=== PATIENT | female | born 2000 | race Caucasian/White ===

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

== ENCOUNTER 2021-02-28 07:29 | Outpatient (REF) | payer OTHER, SELFPAY ==
[2021-02-28 07:55] LABS: COVID-19 Test Negative (Negative)
== END 2021-02-28 07:30 | disposition home or self-care (01) ==
LOC: HO.LAB 07:29
PROVIDERS: Visit Provider Internal Medicine
DX: Z20.822 Contact with and (suspected) exposure to COVID-19 (principal)
CPT/HCPCS: 36415; 87635; C9803

== ENCOUNTER 2021-06-21 09:32 | Outpatient (REF) | payer OTHER, SELFPAY ==
[2021-06-21 12:06] LABS: Hematocrit 42.6 % (37.0-47.0); Hemoglobin 12.7 g/dl (12.0-16.0); Mean Corpuscular HGB Conc 29.8 g/dl (31.0-35.0); Mean Corpuscular Volume 83.9 fL (80.0-98.0); Mean Platelet Volume 9.2 fL (9.4-12.3); Platelet Count 298 X10*3/uL (160-400); Red Blood Count 5.08 X10*6/uL (4.20-5.50); Red Cell Distribution Width 14.8 % (11.0-16.0)
[2021-06-21 12:41] LABS: Thyroid Stimulating Hormone 2.02 uIU/mL (0.32-4.0)
[2021-06-21 16:27] LABS: CT PCR NOT DETECTED (Not Detect.); NG PCR NOT DETECTED (Not Detect.)
[2021-06-22 09:20] LABS: BV Int Neg Control Negative (Negative); BV Int Pos Control Positive (Positive)
== END 2021-06-21 09:33 | disposition home or self-care (01) ==
LOC: HO.LAB 09:32
PROVIDERS: PCP Pediatrics; Visit Provider Advanced Practice Midwife
DX: Z11.3 Encounter for screening for infections with a predominantly sexual mode of transmission (principal); N92.1 Excessive and frequent menstruation with irregular cycle; N94.6 Dysmenorrhea, unspecified
CPT/HCPCS: 36415; 81025; 84443; 85027; 87480; 87491; 87510; 87591; 87660

== ENCOUNTER 2021-06-27 15:49 | Outpatient (REF) | payer OTHER, SELFPAY ==
--- NOTE | ~2021-06-27 | US_ITS ---
EXAMINATION: US PELVIS TRANSVAGINAL CLINICAL INFORMATION: Irregular menstruation. COMPARISON: None. TECHNIQUE: Transcutaneous and transvaginal pelvic ultrasound. Transvaginal scanning was performed after voiding to better evaluate the endometrium and adnexa. FINDINGS: The uterus measures 6.3 x 3.1 x 3.9 cm. The uterus is retroverted and retroflexed. No suspicious abnormalities region of the cervix. Nabothian cysts are present. The uterine contour is smooth. The endometrium measures 0.4 cm. No focal abnormalities within the myometrium. The right ovary measures approximately 3.5 x 2.4 x 2.0 cm. The calculated right ovarian volume is approximately 8.8 mL. There are numerous subcentimeter follicular cysts present; however, I cannot tell if there are greater than 20 are not and there is not definitely a peripheral predominance. The ovary does not measure a volume of greater than 10 mm. There is normal vascular flow present. No suspicious masses are appreciated. The left ovary measures 2.6 x 2.5 x 2.2 cm. The calculated left ovarian volume is approximately 7.5 mL. There are numerous cysts present; however, I cannot count greater than 20 and the volume of the left ovary is less than 10 mL. There is normal vascular flow present without evidence of abnormal mass. There is a small amount of free pelvic fluid. US/US pelvic and transvaginal IMPRESSION: Numerous bilateral ovarian follicular cysts; however, as described above, they do not meet the definite ultrasound criteria for PCOS.
== END 2021-06-27 15:50 | disposition home or self-care (01) ==
LOC: HO.US 15:49
PROVIDERS: PCP Pediatrics; Visit Provider Advanced Practice Midwife
DX: N92.6 Irregular menstruation, unspecified (principal)
CPT/HCPCS: 76830; 76856

== ENCOUNTER → 2021-07-20 16:13 | Outpatient (BNVA) | payer OTHER, SELFPAY | PROVIDERS: Visit Provider Advanced Practice Midwife ==

== ENCOUNTER → 2021-08-02 13:48 | Outpatient (BNVA) | payer OTHER, SELFPAY | PROVIDERS: PCP Pediatrics; Visit Provider Advanced Practice Midwife | DX: Z30.430 Encounter for insertion of intrauterine contraceptive device (principal) | CPT/HCPCS: 58300; J7296 ==

== ENCOUNTER 2021-08-04 18:48 | Emergency (ER) | payer OTHER, SELFPAY ==
[2021-08-04 18:59] VITALS: TEMP 36.4; BMI 32.8
[2021-08-04 19:06] VITALS: BP 77/49; PULSE 129; RESP 24; O2SAT 98
[2021-08-04 19:12] LABS: Glucose, Whole Blood 146 mg/dL (60-115)
[2021-08-04 19:17] VITALS: BP 97/58; PULSE 115; RESP 12; O2SAT 95
--- NOTE | 2021-08-04 19:20 | ED_ITS ---
HPI - General Adult General Chief complaint: Weakness Stated complaint: IUD implanted 08/02 severe weakness/nausea Time Seen by Provider: 08/04/21 19:20 Source: patient Mode of arrival: ambulatory Limitations: no limitations History of Present Illness HPI narrative: None patient with history of diabetes had IUD placed on 08/02 been feeling weak and lethargic today vomited several times no diarrhea no abdominal pain no fever or chills no cough Related Data Home Medications Medication Instructions Recorded Confirmed insulin lispro 100 unit/mL 0 - 80 unit SUBCUT DAILY 06/21/21 subcutaneous pen (Humalog KwikPen (U-100) Insulin) Previous Rx's Medication Instructions Recorded ciprofloxacin HCl 500 mg tablet 500 mg PO BID #14 tab 08/05/21 (Cipro) ondansetron 4 mg disintegrating 4 mg PO Q6-8H PRN #7 tab 08/05/21 tablet Allergies Allergy/AdvReac Type Severity Reaction Status Date / Time No Known Allergies Allergy Verified 08/04/21 18:59 [facility]LY [facility] Past Medical History Medical History Diabetes mellitus Diabetic coma Kidney failure Migraine with aura Surgical History H/O right heart catheterization Social History Social History Alcohol intake: never Patient Tobacco Use Status: Never used Tobacco Advance Directives: No Patient : No Sexual orientation: Straight/Heterosexual Gender identity: Female Physical Exam ED Vital Signs: Vital Signs - 24 hr 08/04/21 18:59 08/04/21 19:06 08/04/21 19:17 Temperature 97.5 F Pulse Rate 129 H 115 H Respiratory Rate 24 H 12 Blood Pressure 77/49 L 97/58 L Pulse Oximetry 98 95 08/04/21 20:26 08/04/21 22:41 08/05/21 00:00 Temperature 98.4 F 98.5 F Pulse Rate 108 H 125 H 100 Respiratory Rate 18 20 17 Blood Pressure 103/64 108/47 L 101/59 L Pulse Oximetry 99 98 96 BMI result Body Mass Index 32.8 Appearance: Alert. Oriented X3. Lethargic Eyes: PERRLA, No Nystagmus ENT: Pharynx normal. Oral Mucosa moist Neck: Normal inspection. Neck supple. CVS: Normal heart rate and rhythm. Pulses normal. Respiratory: No respiratory distress. Equal air entry bilateral, no wheezing/rales/rhonchi Abdomen: Soft and nontender. Bowel sounds are present, no mass palpable, no CVA tenderness Skin: Skin warm and dry. Normal skin color. Normal skin turgor. Extremities: No lower extremity edema. No calf tenderness Neuro: Oriented X 3. No motor deficit. No sensory deficit.No cerebellar signs , cranial nerves II-XII intact Medical Decision Making MDM Narrative Medical decision making narrative: Patient with acute gastroenteritis with a couple of episodes of vomiting with hypotension with UTI received 3 L of IV fluids IV Rocephin feeling much better now will discharge patient home advised to continue Cipro and follow with PCP Lab Data Lab results reviewed: Yes I reviewed the patient's lab results. Result diagrams: 08/04/21 19:32 08/04/21 19:32 Labs: Lab Results 08/04/21 08/04/21 08/04/21 Range/Units 19:04 19:32 19:32 WBC 12.0 H (4.8-10.8) X10*3/uL RBC 5.56 H (4.20-5.50) X10*6/uL Hgb 14.2 (12.0-16.0) g/dl Hct 46.5 (37.0-47.0) % MCV 83.6 (80.0-98.0) fL MCH 25.5 L (27.0-33.0) pg MCHC 30.5 L (31.0-35.0) g/dl RDW 13.1 (11.0-16.0) % Plt Count 385 D (160-400) X10*3/uL MPV 9.0 L (9.4-12.3) fL Immature Gran % (Auto) 0.7 H (0.0-0.4) % Neut % (Auto) 68.0 (45-73) % Lymph % (Auto) 25.4 (20-40) % [place] % (Auto) 5.4 (2-11) % Eos % (Auto) 0.1 (0-4) % Baso % (Auto) 0.4 (0-2) % Lymph # (Auto) 3.1 (1.2-4.9) X10*3/uL [place] # (Auto) 0.7 (0.1-1.2) X10*3/uL Eos # (Auto) 0.0 (0.0-0.4) X10*3/uL Baso # (Auto) 0.1 (0.0-0.2) X10*3/uL Abs Immat Gran (auto) 0.08 H (0.00-0.03) X10*3/uL Absolute Neuts (auto) 8.2 (2.0-8.3) x10*3/uL Absolute Nucleated RBC 0.000 (0.0-0.012) X10*3/uL Nucleated RBC % (auto) 0.0 (0.0-0.2) /100WBC Sodium 137 (135-145) mmol/L Potassium 4.5 (3.3-5.1) mmol/L Chloride 100 (96-108) mmol/L Carbon Dioxide 18 L (22-29) mmol/L Anion Gap 24 H (12-20) BUN 15 (9-16) mg/dL Creatinine 1.29 (0.5-1.4) mg/dL Estim Creat Clear Calc 71.3 Estimated GFR 53 POC Glucose 146 H (60-115) mg/dL Random Glucose 130 H (60-115) mg/dL Lactic Acid (0.5-2.0) mmol/L Lactic Acid F/U @ 2Hr (0.5-2.0) mmol/L Calcium 10.1 (8.4-10.2) mg/dL Total Bilirubin 0.3 (0.0-1.0) mg/dL AST 18 (5-31) U/L ALT 22 (0-31) U/L Alkaline Phosphatase 177 H (39-117) U/L Total Protein 7.7 (6.5-8.0) g/dL Albumin 4.4 (3.5-5.0) g/dL Urine Color Urine Appearance Urine pH (5.0-8.0) Ur Specific [place] (1.005-1.025) Urine Protein (NEG-TRACE) MG/DL Urine Glucose (UA) (NEG) MG/DL Urine Ketones (NEG) MG/DL Urine Blood (NEG) Urine Nitrite (NEG) Ur Leukocyte Esterase (NEG) Urine RBC (0) /HPF Urine WBC (0-4) /HPF Urine WBC Clumps Ur Squamous Epith Cells /LPF Urine Bacteria /LPF Granular Casts /LPF Urine Yeast /HPF COVID-19 ([facility]) (Negative) COVID-19 Clin Com Influenza Type A ([facility]) (Negative) Influenza Type B ([facility]) (Negative) Influenza A & B Note 08/04/21 08/04/21 08/04/21 Range/Units 19:35 19:41 19:41 WBC (4.8-10.8) X10*3/uL RBC (4.20-5.50) X10*6/uL Hgb (12.0-16.0) g/dl Hct (37.0-47.0) % MCV (80.0-98.0) fL MCH (27.0-33.0) pg MCHC (31.0-35.0) g/dl RDW (11.0-16.0) % Plt Count (160-400) X10*3/uL MPV (9.4-12.3) fL Immature Gran % (Auto) (0.0-0.4) % Neut % (Auto) (45-73) % Lymph % (Auto) (20-40) % [place] % (Auto) (2-11) % Eos % (Auto) (0-4) % Baso % (Auto) (0-2) % Lymph # (Auto) (1.2-4.9) X10*3/uL [place] # (Auto) (0.1-1.2) X10*3/uL Eos # (Auto) (0.0-0.4) X10*3/uL Baso # (Auto) (0.0-0.2) X10*3/uL Abs Immat Gran (auto) (0.00-0.03) X10*3/uL Absolute Neuts (auto) (2.0-8.3) x10*3/uL Absolute Nucleated RBC (0.0-0.012) X10*3/uL Nucleated RBC % (auto) (0.0-0.2) /100WBC Sodium (135-145) mmol/L Potassium (3.3-5.1) mmol/L Chloride (96-108) mmol/L Carbon Dioxide (22-29) mmol/L Anion Gap (12-20) BUN (9-16) mg/dL Creatinine (0.5-1.4) mg/dL Estim Creat Clear Calc Estimated GFR POC Glucose (60-115) mg/dL Random Glucose (60-115) mg/dL Lactic Acid 2.2 H* (0.5-2.0) mmol/L Lactic Acid F/U @ 2Hr (0.5-2.0) mmol/L Calcium (8.4-10.2) mg/dL Total Bilirubin (0.0-1.0) mg/dL AST (5-31) U/L ALT (0-31) U/L Alkaline Phosphatase (39-117) U/L Total Protein (6.5-8.0) g/dL Albumin (3.5-5.0) g/dL Urine Color Urine Appearance Urine pH (5.0-8.0) Ur Specific [place] (1.005-1.025) Urine Protein (NEG-TRACE) MG/DL Urine Glucose (UA) (NEG) MG/DL Urine Ketones (NEG) MG/DL Urine Blood (NEG) Urine Nitrite (NEG) Ur Leukocyte Esterase (NEG) Urine RBC (0) /HPF Urine WBC (0-4) /HPF Urine WBC Clumps Ur Squamous Epith Cells /LPF Urine Bacteria /LPF Granular Casts /LPF Urine Yeast /HPF COVID-19 ([facility]) Negative (Negative) COVID-19 Clin Com See Note Influenza Type A ([facility]) Negative (Negative) Influenza Type B ([facility]) Negative (Negative) Influenza A & B Note See Note 08/04/21 08/04/21 08/04/21 Range/Units 22:20 22:33 22:44 WBC (4.8-10.8) X10*3/uL RBC (4.20-5.50) X10*6/uL Hgb (12.0-16.0) g/dl Hct (37.0-47.0) % MCV (80.0-98.0) fL MCH (27.0-33.0) pg MCHC (31.0-35.0) g/dl RDW (11.0-16.0) % Plt Count (160-400) X10*3/uL MPV (9.4-12.3) fL Immature Gran % (Auto) (0.0-0.4) % Neut % (Auto) (45-73) % Lymph % (Auto) (20-40) % [place] % (Auto) (2-11) % Eos % (Auto) (0-4) % Baso % (Auto) (0-2) % Lymph # (Auto) (1.2-4.9) X10*3/uL [place] # (Auto) (0.1-1.2) X10*3/uL Eos # (Auto) (0.0-0.4) X10*3/uL Baso # (Auto) (0.0-0.2) X10*3/uL Abs Immat Gran (auto) (0.00-0.03) X10*3/uL Absolute Neuts (auto) (2.0-8.3) x10*3/uL Absolute Nucleated RBC (0.0-0.012) X10*3/uL Nucleated RBC % (auto) (0.0-0.2) /100WBC Sodium (135-145) mmol/L Potassium (3.3-5.1) mmol/L Chloride (96-108) mmol/L Carbon Dioxide (22-29) mmol/L Anion Gap (12-20) BUN (9-16) mg/dL Creatinine (0.5-1.4) mg/dL Estim Creat Clear Calc Estimated GFR POC Glucose 87 (60-115) mg/dL Random Glucose (60-115) mg/dL Lactic Acid (0.5-2.0) mmol/L Lactic Acid F/U @ 2Hr 2.2 H* (0.5-2.0) mmol/L Calcium (8.4-10.2) mg/dL Total Bilirubin (0.0-1.0) mg/dL AST (5-31) U/L ALT (0-31) U/L Alkaline Phosphatase (39-117) U/L Total Protein (6.5-8.0) g/dL Albumin (3.5-5.0) g/dL Urine Color YELLOW Urine Appearance HAZY Urine pH 5.5 (5.0-8.0) Ur Specific [place] >= 1.030 H (1.005-1.025) Urine Protein TRACE (NEG-TRACE) MG/DL Urine Glucose (UA) 250 H (NEG) MG/DL Urine Ketones >=80 (NEG) MG/DL Urine Blood 2+ H (NEG) Urine Nitrite NEG (NEG) Ur Leukocyte Esterase 1+ H (NEG) Urine RBC 5-9 H (0) /HPF Urine WBC 15-29 H (0-4) /HPF Urine WBC Clumps NOTED Ur Squamous Epith Cells 4+ /LPF Urine Bacteria 2+ /LPF Granular Casts 5-9 /LPF Urine Yeast TRACE /HPF COVID-19 ([facility]) (Negative) COVID-19 Clin Com Influenza Type A ([facility]) (Negative) Influenza Type B ([facility]) (Negative) Influenza A & B Note Discharge Plan Discharge Clinical Impression: UTI (urinary tract infection), Acute gastroenteritis Patient Disposition: Home, Self-Care Instructions: Urinary Tract Infection in Women (ED), Acute Nausea and Vomiting (ED) Additional Instructions: Drink plenty of fluids Take antibiotic as prescribed Insulin as indicated Report to the ER if syncope episode/vomiting/high fever Prescriptions: New ciprofloxacin HCl [Cipro] 500 mg tablet 500 mg PO BID Qty: 14 0RF ondansetron 4 mg tablet,disintegrating 4 mg PO Q6-8H PRN (Reason: nausea and vomiting) Qty: 7 0RF No Action insulin lispro [Humalog KwikPen Insulin] 100 unit/mL insulin pen 0 - 80 unit subcut DAILY 0RF Kyleena 17.5 mcg/24 hrs (5 yrs) 19.5 mg intrauterine device 1 device intrauterine ONCE Qty: 1 0RF
[2021-08-04 19:36] LABS: MANUAL DIFF FLAG NO
[2021-08-04 19:40] LABS: Basophils Absolute Auto 0.1 X10*3/uL (0.0-0.2); Basophils Percent Auto 0.4 % (0-2); Eosinophils Percent Auto 0.1 % (0-4); Hematocrit 46.5 % (37.0-47.0); Hemoglobin 14.2 g/dl (12.0-16.0); Imm Gran Abs Auto 0.08 X10*3/uL (0.00-0.03); Imm Gran Pct Auto 0.7 % (0.0-0.4); Lymphocytes Absolute Auto 3.1 X10*3/uL (1.2-4.9); Lymphocytes Percent Auto 25.4 % (20-40); Mean Corpuscular HGB Conc 30.5 g/dl (31.0-35.0); Mean Corpuscular Hemoglobin 25.5 pg (27.0-33.0); Mean Corpuscular Volume 83.6 fL (80.0-98.0); Monocytes Absolute Auto 0.7 X10*3/uL (0.1-1.2); Monocytes Percent Auto 5.4 % (2-11); Neutrophils Absolute Auto 8.2 x10*3/uL (2.0-8.3); Platelet Count 385 X10*3/uL (160-400); Red Blood Count 5.56 X10*6/uL (4.20-5.50); Red Cell Distribution Width 13.1 % (11.0-16.0)
[2021-08-04] MEDS: 0.9 % Sodium Chloride 1,000 ML 999 ML IV ×3 (19:42→23:40)
[2021-08-04] MEDS: ondansetron HCL 4 MG/2 ML VIAL IVPUSH (19:42)
[2021-08-04 19:58] LABS: Alanine Aminotransferase 22 U/L (0-31); Albumin Level 4.4 g/dL (3.5-5.0); Alkaline Phosphatase 177 U/L (39-117); Anion Gap 24 (12-20); Aspartate Amino Transferase 18 U/L (5-31); Bilirubin Total 0.3 mg/dL (0.0-1.0); Blood Urea Nitrogen 15 mg/dL (9-16); Calcium 10.1 mg/dL (8.4-10.2); Carbon Dioxide 18 mmol/L (22-29); Chloride 100 mmol/L (96-108); Creatinine Clr Calc Pharmacy 71.3; Estimated Glomerular Filt Rate 53; Glucose Random 130 mg/dL (60-115); Potassium 4.5 mmol/L (3.3-5.1); Sodium 137 mmol/L (135-145); Total Protein 7.7 g/dL (6.5-8.0)
[2021-08-04 19:59] LABS: Lactic Acid 2.2 mmol/L (0.5-2.0)
[2021-08-04 20:06] LABS: Influenza A Negative (Negative); Influenza B2 Negative (Negative)
[2021-08-04 20:07] LABS: COVID-19 Test Negative (Negative); IDNOW Serial# 55D5AD1C
[2021-08-04 20:26] VITALS: BP 103/64; PULSE 108; RESP 18; O2SAT 99
[2021-08-04 21:37] LABS: Reflex Lactate? Lactic Acid Added
[2021-08-04 22:23] LABS: Glucose, Whole Blood 87 mg/dL (60-115)
[2021-08-04 22:41] VITALS: BP 108/47; PULSE 125; RESP 20; TEMP 36.9; O2SAT 98
[2021-08-04 22:48] LABS: Appearance Urine HAZY; Color Urine YELLOW; Glucose Urine UA 250 MG/DL (NEG); Leukocyte Esterase Urine 1+ (NEG); Nitrite Urine NEG (NEG); PH 5.5 (5.0-8.0); Specific Gravity - Urine >= 1.030 (1.005-1.025); UACC Culture Trigger YES; Urine Blood 2+ (NEG); Urine Ketones >=80 MG/DL (NEG); Urine Protein TRACE MG/DL (NEG-TRACE)
[2021-08-04 23:10] LABS: Bacteria Urine 2+ /LPF; Squamous Epithelial Cell Urine 4+ /LPF; WBC Clumps Urine NOTED
[2021-08-04 23:18] LABS: ~Lactic Acid-LAB USE ONLY 2.2 mmol/L (0.5-2.0)
[2021-08-04] MEDS: cefTRIAXone sodium 1 GM in 0.9 % Sodium Chloride 50 ML IV (23:40)
[2021-08-05] VITALS: BP 101/59; PULSE 100; RESP 17; TEMP 36.9; O2SAT 96
[2021-08-05 00:39] LABS: Reflex Lactate? 2 Y
== END 2021-08-05 01:08 | disposition home or self-care (01) ==
PROVIDERS: Emergency Provider Internal Medicine; PCP Pediatrics
DX: N39.0 Urinary tract infection, site not specified (principal); K52.9 Noninfective gastroenteritis and colitis, unspecified; R53.1 Weakness; Z20.822 Contact with and (suspected) exposure to COVID-19; E11.9 Type 2 diabetes mellitus without complications; Z79.4 Long term (current) use of insulin
CPT/HCPCS: 36415; 80053; 81001; 82947; 83605; 85025; 87040; 87086; 87088; 87147; 87186; 87502; 87635; 96361; 96374; 96375; 99284; 99285; J0696; J2405

== ENCOUNTER 2021-10-18 13:51 | Outpatient (REF) | payer OTHER, SELFPAY ==
[2021-10-18 17:52] LABS: CT PCR NOT DETECTED (Not Detect.); NG PCR NOT DETECTED (Not Detect.)
[2021-10-19 12:30] LABS: BV Int Neg Control Negative (Negative); BV Int Pos Control Positive (Positive)
== END 2021-10-18 13:52 | disposition home or self-care (01) ==
LOC: HO.LAB 13:51
PROVIDERS: PCP Pediatrics; Visit Provider Advanced Practice Midwife
DX: R10.2 Pelvic and perineal pain (principal); R39.15 Urgency of urination; B95.1 Streptococcus, group B, as the cause of diseases classified elsewhere; Z11.3 Encounter for screening for infections with a predominantly sexual mode of transmission; E11.641 Type 2 diabetes mellitus with hypoglycemia with coma; E11.22 Type 2 diabetes mellitus with diabetic chronic kidney disease; N18.9 Chronic kidney disease, unspecified; Z16.11 Resistance to penicillins; Z16.24 Resistance to multiple antibiotics
CPT/HCPCS: 81003; 87086; 87088; 87147; 87186; 87480; 87491; 87510; 87591; 87660

== ENCOUNTER 2021-10-20 14:49 | Outpatient (REF) | payer OTHER, SELFPAY ==
--- NOTE | ~2021-10-20 | US_ITS ---
EXAMINATION: US PELVIS CLINICAL INFORMATION: Pain COMPARISON: Previous pelvic ultrasound June 2021 TECHNIQUE: Ultrasound of the pelvis is performed using both transabdominal and transvaginal transducers along with Doppler. Transvaginal imaging is performed due to inadequate visualization transabdominally. FINDINGS: The uterus is retroverted and measures 6.2 x 3.7 x 4.8 cm in dimension. There is a new IUD in the uterus in satisfactory position. No focal uterine lesion is seen. The endometrium does not appear thickened. The ovaries are normal-appearing. The right ovary measures 3.3 x 1.9 x 2.4 cm. The left ovary measures 2.9 x 2.2 x 2.6 cm. There is no fluid in the pelvis. US/US pelvic and transvaginal IMPRESSION: IUD in the uterus in satisfactory position.
== END 2021-10-20 14:50 | disposition home or self-care (01) ==
LOC: HO.US 14:49
PROVIDERS: PCP Pediatrics; Visit Provider Advanced Practice Midwife
DX: Z30.431 Encounter for routine checking of intrauterine contraceptive device (principal); R10.2 Pelvic and perineal pain
CPT/HCPCS: 76830; 76856

== ENCOUNTER 2022-04-06 13:09 | Outpatient (REF) | payer OTHER, SELFPAY ==
[2022-04-06 14:25] LABS: Creatinine Urine 21.16 mg/dL; Microalbum/Creatinine Ratio Ur 47.2 ug/mg cr
[2022-04-06 14:28] LABS: Alanine Aminotransferase 20 U/L (0-31); Albumin Level 3.5 g/dL (3.5-5.0); Alkaline Phosphatase 186 U/L (39-117); Aspartate Amino Transferase 24 U/L (5-31); Bilirubin Direct 0.2 mg/dL (0.0-0.5); Bilirubin Total 0.5 mg/dL (0.0-1.0); Estimated Glomerular Filt Rate > 60; Total Protein 6.1 g/dL (6.5-8.0)
[2022-04-06 14:48] LABS: Thyroid Stimulating Hormone 2.13 uIU/mL (0.32-4.0)
[2022-04-07 10:37] LABS: LDL Cholesterol Direct 130 mg/dL (<100)
== END 2022-04-06 13:10 | disposition home or self-care (01) ==
LOC: HO.LAB 13:09
PROVIDERS: PCP Pediatrics; Visit Provider Pediatrics Pediatric Endocrinology
DX: E10.9 Type 1 diabetes mellitus without complications (principal)
CPT/HCPCS: 36415; 80076; 82043; 82565; 83721; 84443

== ENCOUNTER → 2022-05-15 09:27 | Outpatient (BNVA) | payer OTHER, SELFPAY | PROVIDERS: PCP Pediatrics; Visit Provider Nurse Practitioner Family | DX: N30.80 Other cystitis without hematuria (principal) | CPT/HCPCS: 51700; 51798 ==

== ENCOUNTER → 2022-05-30 13:57 | Outpatient (BNVA) | payer OTHER, SELFPAY | PROVIDERS: PCP Pediatrics; Visit Provider Nurse Practitioner Family | DX: N30.80 Other cystitis without hematuria (principal) | CPT/HCPCS: 51798 ==

== ENCOUNTER 2022-10-26 11:07 | Outpatient (REF) | payer OTHER, MEDICAID, SELFPAY ==
[2022-10-26 13:56] LABS: Hematocrit 40.8 % (37.0-47.0); Hemoglobin 11.9 g/dl (12.0-16.0); Mean Corpuscular HGB Conc 29.2 g/dl (31.0-35.0); Mean Corpuscular Hemoglobin 25.6 pg (27.0-33.0); Mean Corpuscular Volume 87.9 fL (80.0-98.0); Mean Platelet Volume 9.7 fL (9.4-12.3); Platelet Count 285 X10*3/uL (160-400); Red Blood Count 4.64 X10*6/uL (4.20-5.50); Red Cell Distribution Width 13.2 % (11.0-16.0); White Blood Count 6.5 X10*3/uL (4.8-10.8)
[2022-10-26 18:42] LABS: Anion Gap 16 (12-20); Blood Urea Nitrogen 14 mg/dL (9-16); Calcium 9.6 mg/dL (8.4-10.2); Carbon Dioxide 30 mmol/L (22-29); Chloride 100 mmol/L (96-108); Estimated Glomerular Filt Rate > 60; Glucose Random 327 mg/dL (60-115); Potassium 4.7 mmol/L (3.3-5.1); Sodium 141 mmol/L (135-145)
== END 2022-10-26 11:08 | disposition home or self-care (01) ==
LOC: HO.WFDLDS 11:07
PROVIDERS: Visit Provider Nurse Practitioner Family
DX: Z01.818 Encounter for other preprocedural examination (principal)
CPT/HCPCS: 36415; 80048; 85027

== ENCOUNTER 2023-03-28 19:40 | Emergency (ER) | payer OTHER, MEDICAID, SELFPAY ==
--- NOTE | 2023-03-28 19:59 | ECG_ITS ---
Test Reason : HYPOGLYCEMIA Blood Pressure : / mmHG Vent. Rate : 265 BPM Atrial Rate : 000 BPM P-R Int : 000 ms QRS Dur : 162 ms QT Int : 158 ms P-R-T Axes : 000 189 000 degrees QTc Int : 331 ms Wide QRS tachycardia Right bundle branch block Abnormal ECG No previous ECGs available Referred By: Lukas Valera Electronically Signed By:KRISTINA DOUGLASS MD
[2023-03-28 20:06] VITALS: BP 112/64; PULSE 122; O2SAT 98; BMI 36.3
[2023-03-28 20:08] VITALS: BP 97/46; PULSE 119; RESP 25; TEMP 36.3; O2SAT 94
[2023-03-28 20:32] LABS: Basophils Absolute Auto 0.2 X10*3/uL (0.0-0.2); Basophils Percent Auto 0.6 % (0-2); Eosinophils Percent Auto 0.2 % (0-4); Hematocrit 47.9 % (37.0-47.0); Hemoglobin 13.7 g/dl (12.0-16.0); Imm Gran Abs Auto 0.66 X10*3/uL (0.00-0.03); Imm Gran Pct Auto 2.5 % (0.0-0.4); Lymphocytes Absolute Auto 2.4 X10*3/uL (1.2-4.9); Lymphocytes Percent Auto 8.9 % (20-40); MANUAL DIFF FLAG SCAN; Mean Corpuscular HGB Conc 28.6 g/dl (31.0-35.0); Mean Corpuscular Hemoglobin 25.4 pg (27.0-33.0); Mean Corpuscular Volume 88.7 fL (80.0-98.0); Mean Platelet Volume 9.6 fL (9.4-12.3); Monocytes Absolute Auto 1.1 X10*3/uL (0.1-1.2); Neutrophils Absolute Auto 22.3 x10*3/uL (2.0-8.3); Neutrophils Percent Auto 83.8 % (45-73); Platelet Count 476 X10*3/uL (160-400); SCAN SMEAR FLAG 1; White Blood Count 26.6 X10*3/uL (4.8-10.8)
[2023-03-28 20:36] LABS: Glucose, Whole Blood > 600 mg/dL (60-115)
[2023-03-28 20:36] LABS: Glucose, Whole Blood > 600 mg/dL (60-115)
[2023-03-28] MEDS: 0.9 % Sodium Chloride 1,000 ML 999 ML IV ×3 (20:40→21:00)
[2023-03-28 20:45] LABS: Lactic Acid 3.1 mmol/L (0.5-2.0)
[2023-03-28 20:47] LABS: VBG Base Excess -29.1 mmol/L; VBG HCO3 4 mmol/L (22-26); VBG pCO2 20 mmHg; VBG pH 6.85 (7.32-7.43); VBG pO2 62 mmHg
[2023-03-28] MEDS: Calcium Gluconate/NaCl,Iso-Osm 2 GM/100 ML PLAST..BAG IV (20:47)
--- NOTE | 2023-03-28 20:49 | ECG_ITS ---
Test Reason : VTACH Blood Pressure : / mmHG Vent. Rate : 114 BPM Atrial Rate : 114 BPM P-R Int : 178 ms QRS Dur : 106 ms QT Int : 346 ms P-R-T Axes : 074 -76 051 degrees QTc Int : 476 ms Sinus tachycardia Left axis deviation Incomplete right bundle branch block Abnormal ECG When compared with ECG of 28-MAR-2023 20:16, Sinus rhythm has replaced Wide QRS tachycardia Vent. rate has decreased BY 151 BPM Referred By: Generic ED Physician Electronically Signed By:KRISTINA DOUGLASS MD
[2023-03-28] MEDS: Insulin Regular, Human 100 UNIT/ML 3 ML VIAL 14 UNIT IVPUSH (20:50)
[2023-03-28] MEDS: Insulin Regular/NS 100 UNIT/100 ML PLAST..BAG 6 UNIT IVCONT (20:55)
[2023-03-28 20:57] LABS: SLIDE REVIEW VERIFIED
[2023-03-28 21:07] LABS: Alanine Aminotransferase 18 U/L (0-31); Albumin Level 4.1 g/dL (3.5-5.0); Alkaline Phosphatase 148 U/L (39-117); Anion Gap 42 (12-20); Aspartate Amino Transferase 12 U/L (5-31); Bilirubin Direct < 0.2 mg/dL (0.0-0.5); Bilirubin Total 0.2 mg/dL (0.0-1.0); Blood Urea Nitrogen 37 mg/dL (9-16); Calcium 10.2 mg/dL (8.4-10.2); Carbon Dioxide 5 mmol/L (22-29); Chloride 93 mmol/L (96-108); Creatinine Clr Calc Pharmacy 45.2; Estimated Glomerular Filt Rate 31; Glucose Random 873 mg/dL (60-115); HCG Quantitative < 2 mIU/mL; Sodium 133 mmol/L (135-145); Total Protein 7.9 g/dL (6.5-8.0)
[2023-03-28 21:14] LABS: Appearance Urine Cloudy; Color Urine Yellow; Glucose Urine UA >=1000 mg/dL (Negative); Leukocyte Esterase Urine Negative (Negative); Nitrite Urine Negative (Negative); PH 5.5 (5.0-9.0); Specific Gravity - Urine 1.025 (1.005-1.025); UMIC TRIGGER UACC YES; Urine Blood Small (1+) (Negative); Urine Ketones 80 mg/dL (Negative); Urine Protein 100 (2+) mg/dL (Neg-Trace)
[2023-03-28 21:25] LABS: Venous Blood Gas Refer to POC result
[2023-03-28 21:26] LABS: Bacteria Urine 3+ (None Seen); Hyaline Casts Urine >20 /LPF (0-2); UACC Culture Trigger YES
[2023-03-28 21:31] LABS: COVID-19 Test Negative (Negative); IDNOW Serial# 08D9AD1C
[2023-03-28 21:42] LABS: Magnesium 2.6 mg/dL (1.6-2.6)
[2023-03-28 22:30] LABS: Reflex Lactate? Lactic Acid Added
[2023-03-28 23:24] LABS: Glucose, Whole Blood 555 mg/dL (60-115)
[2023-03-28 23:36] LABS: Venous Blood Gas Refer to POC result
[2023-03-28 23:37] LABS: VBG Base Excess -24.6 mmol/L; VBG HCO3 6 mmol/L (22-26); VBG pCO2 24 mmHg; VBG pH 6.97 (7.32-7.43); VBG pO2 70 mmHg
[2023-03-28 23:38] VITALS: BP 117/48; PULSE 123; RESP 24; TEMP 37.2; O2SAT 100
[2023-03-28] MEDS: Lactated Ringers 1,000 ML 999 ML IV (23:45)
[2023-03-28 23:49] LABS: Glucose, Whole Blood 389 mg/dL (60-115)
[2023-03-28 23:52] LABS: ~Lactic Acid-LAB USE ONLY 3.1 mmol/L (0.5-2.0)
[2023-03-28 23:53] LABS: IDNOW Serial# 9DB6401D; Influenza A Negative (Negative); Influenza B2 Negative (Negative)
[2023-03-28 23:56] LABS: Anion Gap 31 (12-20); Blood Urea Nitrogen 30 mg/dL (9-16); Calcium 9.1 mg/dL (8.4-10.2); Carbon Dioxide 7 mmol/L (22-29); Chloride 111 mmol/L (96-108); Creatinine Clr Calc Pharmacy 59.4; Estimated Glomerular Filt Rate 42; Glucose Random 426 mg/dL (60-115); Potassium 4.4 mmol/L (3.3-5.1); Sodium 145 mmol/L (135-145)
--- NOTE | 2023-03-29 00:06 | ED_ITS ---
HPI - General Adult General Chief complaint: Nausea/Vomiting/Diarrhea Stated complaint: BGL ON HOME MINITOR 600, EMS READING 400 Time Seen by Provider: 03/28/23 19:52 History of Present Illness HPI narrative: Patient is a 22-year-old female who has been feeling mildly unwell for 2 days. Yesterday she thought she had a migraine headache and had some nausea and vomiting. Her blood sugars were somewhat higher than usual. Today her blood sugars continued to increase despite get help some extra insulin with her insulin pump. Ultimately an ambulance was called and she was brought to the hospital. Patient says she really has not been able to keep anything down today. Her Dexcom device apparently stopped working. Paramedics measured a point of care glucose is greater than 600. She is complaining of severe thirst. Related Data Home Medications Medication Instructions Recorded Confirmed insulin lispro 100 unit/mL 0 - 80 unit subcut DAILY 06/21/21 10/26/22 subcutaneous pen (Humalog KwikPen (U-100) Insulin) insulin degludec 100 unit/mL (3 25 unit subcut DAILY 05/15/22 10/26/22 mL) subcutaneous pen (Tresiba FlexTouch U-100 insulin) levonorgestrel 21 mcg/24 hours (8 intrauterine 05/15/22 10/26/22 yrs) 52 mg intrauterine device (Mirena) blood sugar diagnostic (OneTouch #10 ea 10/26/22 10/26/22 Verio test strips) blood-glucose sensor (Dexcom G6 #1 ea 10/26/22 10/26/22 Sensor device) blood-glucose transmitter (Dexcom #1 ea 10/26/22 10/26/22 G6 Transmitter device) fluocinolone 0.01 % topical ml topical DAILY 10/26/22 10/26/22 solution ketoconazole 2 % shampoo 1 appl topical 2XW 10/26/22 10/26/22 Allergies Allergy/AdvReac Type Severity Reaction Status Date / Time No Known Allergies Allergy Verified 10/26/22 10:32 Review of Systems 2 Review of Systems: Yes all other systems are reviewed and are negative [facility] Past Medical History Medical History Diabetes mellitus Diabetic coma Emphysematous cystitis Kidney failure Migraine with aura Surgical History H/O right heart catheterization Family History Family History Sister Depression Anxiety Bipolar 1 disorder Mother Alcohol abuse Father Alcohol abuse Social History Social History Housing: House Alcohol intake: never Patient Tobacco Use Status: Never used Tobacco e-Cigarette/Vaping Use: Never Used Advance Directives: No Advance Directives Information Provided: No service: No Current occupational status: unemployed Sexual orientation: Straight/Heterosexual Gender identity: Female Cognitive needs: No Hearing needs: No Vision needs: Yes Physical Exam ED Vital Signs: Vital Signs - 24 hr 03/28/23 20:08 03/28/23 23:38 Temperature 97.4 F 99 F Pulse Rate 119 H 123 H Respiratory Rate 25 H 24 H Blood Pressure 97/46 L 117/48 L Pulse Oximetry 94 100 Oxygen Delivery Method Room Air Room Air BMI result Body Mass Index 36.3 Const Other: Patient was awake. The patient looked pale. She had increased respiratory effort suggestive a Kussmaul breathing. Her mental status seemed fairly clear HENMT Other: Mucous membranes are very dry. Eyes Other: Pupils are round equal, extraocular movements intact, conjunctivae clear Neck Other: No nuchal rigidity. Neck was supple. No masses. No adenopathy. Resp Other: There was increased respiratory effort suggestive of Kussmaul breathing. Breath sounds were clear. Cardio Other: The patient was very tachycardic. GI Other: Abdomen was soft and without significant tenderness Skin Other: Skin was quite pale. Neuro Other: The patient was awake. The patient seemed fatigued but fairly coherent. Speech was clear. Face was symmetrical. Eye movements normal. She moved her extremities symmetrically. Extrem Other: No peripheral edema Medications Administered Generic Name Dose Route Start Last Admin Trade Name Freq PRN Reason Stop Dose Admin Lactated Ringer's 1,000 mls @ 999 mls/hr 03/28/23 23:30 03/28/23 23:45 Lr IV 03/29/23 00:30 999 mls/hr .[id number] MARYANN Administration Procedures Central Line Placement Right Femoral: Time Out Performed: No Patient Placed on Monitor/Pulse Ox: Yes MD Prep: mask and gloves Central Line Prep: Chlorhexidine scrub Local Anesthetic: lidocaine 1% Amount of anesthesia used (mL): 2 Ultrasound Used for Placement: Yes Central Line Lumen Inserted: triple Patient Tolerated Procedure: well and no complications Additional Comments: This line was placed as an acute emergency. The patient was clinically unstable with a wide complex tachycardia 260 beats per minute. EJ/Peripheral Line Neck L: Skin Cleansed in Sterile Fashion: Yes Size (gauge): 20 IV Secured and Dressing Applied: Yes Patient Tolerated Procedure: no complications Medical Decision Making Medical Decision Making [facility] Narrative: 22-year-old type 1 diabetic who presented with hyperglycemia and increased respiratory effort suggestive of Kussmaul breathing. DKA seems likely. I 1st examined her on the ambulance stretcher. Not long after that she was placed in a room and was found to be significantly tachycardic in a wide complex tachycardia. EKG 2015 showed a wide complex tachycardia to 166 beats per minute. At that time we had no IV access. The patient's blood pressure was reasonably good. She was still mentating. Defibrillator pads were placed on the patient. I was able to place a 20 gauge catheter in her left external jugular vein. He was given 2 g of magnesium and started on a bolus of normal saline.. I then placed a triple-lumen catheter in her right femoral vein under ultrasound guidance. That point the patient was given 4 mg of midazolam and she was then cardioverted using synchronized cardioversion at 200 joules. Cardioversion was successful and resulted in sinus tachycardia. An EKG at 20:49 showed sinus tachycardia 114 beats per minute. The patient was then also given IV bicarb, IV calcium gluconate, a bolus of 14 units of IV insulin and an insulin drip at 6 units/hour. The patient's initial labs showed a pH of 6.85 with a large anion gap. Beta hydroxybutyrate was 14 She had a high white blood count but her CRP was not significantly elevated. Patient was given additional IV crystalloid. Her blood pressure dropped however and she was started on a drip of norepinephrine. I contacted our ICU but our ICU was full and therefore the patient could not be accepted to this hospital. Labs repeated in the emergency room. The patient's pH came up to 6.97. The patient's anion gap closed from 42 to 31. The patient's repeat potassium was 4.4. At this point the patient has received 4 L of crystalloid. Patient is also getting a 5 L of D5 normal saline with 40 mEq of potassium at 250mL per hour. Additionally I have elected to cover the patient with antibiotics although I do not have a very high suspicion that sepsis was the trigger for her DKA. On the whole the trigger for her DKA is not entirely clear. The cultures have been sent. She will be given 2 g of ceftriaxone IV. At 01:32 I am signing the patient out to my colleague Dr. Guzmán. Our ICU was full. I have tried [facility], [facility], and [facility]. These hospitals have turned down my request for transfer. I have contacted for hospital and we are awaiting a response from them. Lab Data 03/28/23 20:26 03/28/23 23:20 Labs: Lab Results 03/28/23 03/28/23 03/28/23 Range/Units 20:12 20:18 20:26 WBC 26.6 H (4.8-10.8) X10*3/uL RBC 5.40 (4.20-5.50) X10*6/uL Hgb 13.7 (12.0-16.0) g/dl Hct 47.9 H (37.0-47.0) % MCV 88.7 (80.0-98.0) fL MCH 25.4 L (27.0-33.0) pg MCHC 28.6 L (31.0-35.0) g/dl RDW 13.0 (11.0-16.0) % Plt Count 476 H D (160-400) X10*3/uL MPV 9.6 (9.4-12.3) fL Immature Gran % (Auto) 2.5 H (0.0-0.4) % Neut % (Auto) 83.8 H (45-73) % Lymph % (Auto) 8.9 L (20-40) % [place] % (Auto) 4.0 (2-11) % Eos % (Auto) 0.2 (0-4) % Baso % (Auto) 0.6 (0-2) % Lymph # (Auto) 2.4 (1.2-4.9) X10*3/uL [place] # (Auto) 1.1 (0.1-1.2) X10*3/uL Eos # (Auto) 0.0 (0.0-0.4) X10*3/uL Baso # (Auto) 0.2 (0.0-0.2) X10*3/uL Abs Immat Gran (auto) 0.66 H (0.00-0.03) X10*3/uL Absolute Neuts (auto) 22.3 H (2.0-8.3) x10*3/uL Absolute Nucleated RBC 0.000 (0.0-0.012) X10*3/uL Nucleated RBC % (auto) 0.0 (0.0-0.2) /100WBC Smear Tech's Comments VERIFIED VBG pH (7.32-7.43) VBG pCO2 mmHg VBG pO2 mmHg VBG HCO3 (22-26) mmol/L VBG O2 Saturation % VBG Base Excess mmol/L Sodium 133 L (135-145) mmol/L Potassium 7.0 H* D (3.3-5.1) mmol/L Chloride 93 L (96-108) mmol/L Carbon Dioxide 5 L* D (22-29) mmol/L Anion Gap 42 H (12-20) BUN 37 H (9-16) mg/dL Creatinine 2.05 H (0.5-1.4) mg/dL Estim Creat Clear Calc 45.2 Estimated GFR 31 POC Glucose > 600 H* > 600 H* (60-115) mg/dL Random Glucose 873 H* (60-115) mg/dL Lactic Acid 3.1 H* (0.5-2.0) mmol/L Lactic Acid F/U @ 2Hr (0.5-2.0) mmol/L Calcium 10.2 D (8.4-10.2) mg/dL Magnesium 2.6 (1.6-2.6) mg/dL Total Bilirubin 0.2 (0.0-1.0) mg/dL Direct Bilirubin < 0.2 (0.0-0.5) mg/dL AST 12 (5-31) U/L ALT 18 (0-31) U/L Alkaline Phosphatase 148 H (39-117) U/L C-Reactive Protein 8.10 H (< or = 0.50) mg/dL Total Protein 7.9 (6.5-8.0) g/dL Albumin 4.1 (3.5-5.0) g/dL Beta-Hydroxybutyrate 14.70 H (0.02-0.27) mmol/L Beta HCG, Quant < 2 mIU/mL Urine Color Urine Appearance Urine pH (5.0-9.0) Ur Specific [place] (1.005-1.025) Urine Protein (Neg-Trace) mg/dL Urine Glucose (UA) (Negative) mg/dL Urine Ketones (Negative) mg/dL Urine Blood (Negative) Urine Nitrite (Negative) Ur Leukocyte Esterase (Negative) Urine RBC (0-2) /HPF Urine WBC (0-5) /HPF Ur Squamous Epith Cells (0-2) /HPF Urine Bacteria (None Seen) Hyaline Casts (0-2) /LPF COVID-19 ([place] [place]) (Negative) COVID-19 Clin Com Influenza Type A (TERRIE) (Negative) Influenza Type B (TERRIE) (Negative) Influenza A & B Note 03/28/23 03/28/23 03/28/23 Range/Units 20:29 21:07 21:08 WBC (4.8-10.8) X10*3/uL RBC (4.20-5.50) X10*6/uL Hgb (12.0-16.0) g/dl Hct (37.0-47.0) % MCV (80.0-98.0) fL MCH (27.0-33.0) pg MCHC (31.0-35.0) g/dl RDW (11.0-16.0) % Plt Count (160-400) X10*3/uL MPV (9.4-12.3) fL Immature Gran % (Auto) (0.0-0.4) % Neut % (Auto) (45-73) % Lymph % (Auto) (20-40) % [place] % (Auto) (2-11) % Eos % (Auto) (0-4) % Baso % (Auto) (0-2) % Lymph # (Auto) (1.2-4.9) X10*3/uL [place] # (Auto) (0.1-1.2) X10*3/uL Eos # (Auto) (0.0-0.4) X10*3/uL Baso # (Auto) (0.0-0.2) X10*3/uL Abs Immat Gran (auto) (0.00-0.03) X10*3/uL Absolute Neuts (auto) (2.0-8.3) x10*3/uL Absolute Nucleated RBC (0.0-0.012) X10*3/uL Nucleated RBC % (auto) (0.0-0.2) /100WBC Smear Tech's Comments VBG pH 6.85 L* (7.32-7.43) VBG pCO2 20 mmHg VBG pO2 62 mmHg VBG HCO3 4 L (22-26) mmol/L VBG O2 Saturation 82.0 % VBG Base Excess -29.1 mmol/L Sodium (135-145) mmol/L Potassium (3.3-5.1) mmol/L Chloride (96-108) mmol/L Carbon Dioxide (22-29) mmol/L Anion Gap (12-20) BUN (9-16) mg/dL Creatinine (0.5-1.4) mg/dL Estim Creat Clear Calc Estimated GFR POC Glucose (60-115) mg/dL Random Glucose (60-115) mg/dL Lactic Acid (0.5-2.0) mmol/L Lactic Acid F/U @ 2Hr (0.5-2.0) mmol/L Calcium (8.4-10.2) mg/dL Magnesium (1.6-2.6) mg/dL Total Bilirubin (0.0-1.0) mg/dL Direct Bilirubin (0.0-0.5) mg/dL AST (5-31) U/L ALT (0-31) U/L Alkaline Phosphatase (39-117) U/L C-Reactive Protein (< or = 0.50) mg/dL Total Protein (6.5-8.0) g/dL Albumin (3.5-5.0) g/dL Beta-Hydroxybutyrate (0.02-0.27) mmol/L Beta HCG, Quant mIU/mL Urine Color Yellow Urine Appearance Cloudy Urine pH 5.5 (5.0-9.0) Ur Specific [place] 1.025 (1.005-1.025) Urine Protein 100 (2+) H (Neg-Trace) mg/dL Urine Glucose (UA) >=1000 H (Negative) mg/dL Urine Ketones 80 (Negative) mg/dL Urine Blood Small (1+) H (Negative) Urine Nitrite Negative (Negative) Ur Leukocyte Esterase Negative (Negative) Urine RBC 3-5 H (0-2) /HPF Urine WBC 11-20 H (0-5) /HPF Ur Squamous Epith Cells 11-20 (0-2) /HPF Urine Bacteria 3+ (None Seen) Hyaline Casts >20 (0-2) /LPF COVID-19 ([facility] [place]) Negative (Negative) COVID-19 Clin Com See Note Influenza Type A (TERRIE) (Negative) Influenza Type B (TERRIE) (Negative) Influenza A & B Note 03/28/23 03/28/23 03/28/23 Range/Units 21:52 23:20 23:22 WBC (4.8-10.8) X10*3/uL RBC (4.20-5.50) X10*6/uL Hgb (12.0-16.0) g/dl Hct (37.0-47.0) % MCV (80.0-98.0) fL MCH (27.0-33.0) pg MCHC (31.0-35.0) g/dl RDW (11.0-16.0) % Plt Count (160-400) X10*3/uL MPV (9.4-12.3) fL Immature Gran % (Auto) (0.0-0.4) % Neut % (Auto) (45-73) % Lymph % (Auto) (20-40) % [place] % (Auto) (2-11) % Eos % (Auto) (0-4) % Baso % (Auto) (0-2) % Lymph # (Auto) (1.2-4.9) X10*3/uL [place] # (Auto) (0.1-1.2) X10*3/uL Eos # (Auto) (0.0-0.4) X10*3/uL Baso # (Auto) (0.0-0.2) X10*3/uL Abs Immat Gran (auto) (0.00-0.03) X10*3/uL Absolute Neuts (auto) (2.0-8.3) x10*3/uL Absolute Nucleated RBC (0.0-0.012) X10*3/uL Nucleated RBC % (auto) (0.0-0.2) /100WBC Smear Tech's Comments VBG pH (7.32-7.43) VBG pCO2 mmHg VBG pO2 mmHg VBG HCO3 (22-26) mmol/L VBG O2 Saturation % VBG Base Excess mmol/L Sodium 145 (135-145) mmol/L Potassium 4.4 D (3.3-5.1) mmol/L Chloride 111 H (96-108) mmol/L Carbon Dioxide 7 L* D (22-29) mmol/L Anion Gap 31 H (12-20) BUN 30 H (9-16) mg/dL Creatinine 1.56 H (0.5-1.4) mg/dL Estim Creat Clear Calc 59.4 Estimated GFR 42 POC Glucose 555 H* (60-115) mg/dL Random Glucose 426 H* (60-115) mg/dL Lactic Acid (0.5-2.0) mmol/L Lactic Acid F/U @ 2Hr 3.1 H* (0.5-2.0) mmol/L Calcium 9.1 D (8.4-10.2) mg/dL Magnesium (1.6-2.6) mg/dL Total Bilirubin (0.0-1.0) mg/dL Direct Bilirubin (0.0-0.5) mg/dL AST (5-31) U/L ALT (0-31) U/L Alkaline Phosphatase (39-117) U/L C-Reactive Protein (< or = 0.50) mg/dL Total Protein (6.5-8.0) g/dL Albumin (3.5-5.0) g/dL Beta-Hydroxybutyrate (0.02-0.27) mmol/L Beta HCG, Quant mIU/mL Urine Color Urine Appearance Urine pH (5.0-9.0) Ur Specific [place] (1.005-1.025) Urine Protein (Neg-Trace) mg/dL Urine Glucose (UA) (Negative) mg/dL Urine Ketones (Negative) mg/dL Urine Blood (Negative) Urine Nitrite (Negative) Ur Leukocyte Esterase (Negative) Urine RBC (0-2) /HPF Urine WBC (0-5) /HPF Ur Squamous Epith Cells (0-2) /HPF Urine Bacteria (None Seen) Hyaline Casts (0-2) /LPF COVID-19 ([facility] [place]) (Negative) COVID-19 Clin Com Influenza Type A (TERRIE) Negative (Negative) Influenza Type B (TERRIE) Negative (Negative) Influenza A & B Note See Note 03/28/23 03/28/23 Range/Units 23:28 23:40 WBC (4.8-10.8) X10*3/uL RBC (4.20-5.50) X10*6/uL Hgb (12.0-16.0) g/dl Hct (37.0-47.0) % MCV (80.0-98.0) fL MCH (27.0-33.0) pg MCHC (31.0-35.0) g/dl RDW (11.0-16.0) % Plt Count (160-400) X10*3/uL MPV (9.4-12.3) fL Immature Gran % (Auto) (0.0-0.4) % Neut % (Auto) (45-73) % Lymph % (Auto) (20-40) % [place] % (Auto) (2-11) % Eos % (Auto) (0-4) % Baso % (Auto) (0-2) % Lymph # (Auto) (1.2-4.9) X10*3/uL [place] # (Auto) (0.1-1.2) X10*3/uL Eos # (Auto) (0.0-0.4) X10*3/uL Baso # (Auto) (0.0-0.2) X10*3/uL Abs Immat Gran (auto) (0.00-0.03) X10*3/uL Absolute Neuts (auto) (2.0-8.3) x10*3/uL Absolute Nucleated RBC (0.0-0.012) X10*3/uL Nucleated RBC % (auto) (0.0-0.2) /100WBC Smear Tech's Comments VBG pH 6.97 L* (7.32-7.43) VBG pCO2 24 mmHg VBG pO2 70 mmHg VBG HCO3 6 L (22-26) mmol/L VBG O2 Saturation 90.0 % VBG Base Excess -24.6 mmol/L Sodium (135-145) mmol/L Potassium (3.3-5.1) mmol/L Chloride (96-108) mmol/L Carbon Dioxide (22-29) mmol/L Anion Gap (12-20) BUN (9-16) mg/dL Creatinine (0.5-1.4) mg/dL Estim Creat Clear Calc Estimated GFR POC Glucose 389 H* (60-115) mg/dL Random Glucose (60-115) mg/dL Lactic Acid (0.5-2.0) mmol/L Lactic Acid F/U @ 2Hr (0.5-2.0) mmol/L Calcium (8.4-10.2) mg/dL Magnesium (1.6-2.6) mg/dL Total Bilirubin (0.0-1.0) mg/dL Direct Bilirubin (0.0-0.5) mg/dL AST (5-31) U/L ALT (0-31) U/L Alkaline Phosphatase (39-117) U/L C-Reactive Protein (< or = 0.50) mg/dL Total Protein (6.5-8.0) g/dL Albumin (3.5-5.0) g/dL Beta-Hydroxybutyrate (0.02-0.27) mmol/L Beta HCG, Quant mIU/mL Urine Color Urine Appearance Urine pH (5.0-9.0) Ur Specific [place] (1.005-1.025) Urine Protein (Neg-Trace) mg/dL Urine Glucose (UA) (Negative) mg/dL Urine Ketones (Negative) mg/dL Urine Blood (Negative) Urine Nitrite (Negative) Ur Leukocyte Esterase (Negative) Urine RBC (0-2) /HPF Urine WBC (0-5) /HPF Ur Squamous Epith Cells (0-2) /HPF Urine Bacteria (None Seen) Hyaline Casts (0-2) /LPF COVID-19 ([facility]) (Negative) COVID-19 Clin Com Influenza Type A ([facility]E) (Negative) Influenza Type B ([facility]E) (Negative) Influenza A & B Note Critical Care Time Critical Care Time Total Critical Care Time: 120 Attestation: The patient was critically ill with a high probability of imminent or life- threatening deterioration. I spent greater than 30 minutes of discontinuous time evaluating the patient, delivering critical care at the bedside, discussing evaluating data with consultants. Critical care time does not include time spent performing separately billable procedures or teaching. Time spent performing critical care with 120 minutes. Discharge Plan Discharge Clinical Impression: Diabetic keto-acidosis, Acute hyperkalemia, Wide-complex tachycardia Prescriptions: No Action (DME) Dexcom G6 Transmitter Device See Rx Instructions .ROUTE .MEDSUPPLY Qty: 1 Rx Instructions: As directed (DME) Dexcom G6 Sensor Device See Rx Instructions .ROUTE Q10D Qty: 1 Rx Instructions: As directed fluocinolone 0.01 % solution topical DAILY (DME) OneTouch Verio test strips Strip See Rx Instructions .ROUTE .MEDSUPPLY Qty: 10 Rx Instructions: As directed ketoconazole 2 % shampoo 1 appl topical 2XW insulin lispro [Humalog KwikPen Insulin] 100 unit/mL insulin pen 0 - 80 unit subcut DAILY insulin degludec [Tresiba FlexTouch U-100] 100 unit/mL (3 mL) insulin pen 25 unit subcut DAILY Mirena 20 mcg/24 hours (8 yrs) 52 mg intrauterine device intrauterine
[2023-03-29] MEDS: cefTRIAXone sodium 2 GM in 0.9 % Sodium Chloride 50 ML IV (01:16)
[2023-03-29] MEDS: Acetaminophen 325 MG TABLET 975 MG PO (01:22)
[2023-03-29 01:29] LABS: Reflex Lactate? 2 Y
[2023-03-29 01:46] LABS: Glucose, Whole Blood 266 mg/dL (60-115)
[2023-03-29 01:56] VITALS: BP 105/50; PULSE 130; RESP 21; TEMP 38.2; O2SAT 98
[2023-03-29 02:08] LABS: Venous Blood Gas Refer to POC result
[2023-03-29] MEDS: KCl 40 mEq in 5% Dex/0.9% Sod 40 MEQ/1,000 ML IV.SOLN 250 MEQ IV (02:16)
[2023-03-29 02:22] LABS: VBG Base Excess -17.9 mmol/L; VBG HCO3 9 mmol/L (22-26); VBG pCO2 26 mmHg; VBG pH 7.14 (7.32-7.43); VBG pO2 63 mmHg
[2023-03-29 02:26] VITALS: TEMP 38.4
[2023-03-29 02:28] LABS: ~Lactic Acid-LAB USE ONLY 1.4 mmol/L (0.5-2.0)
[2023-03-29] MEDS: Sodium Bicarbonate 8.4% 50 MEQ/50 ML SYRINGE IVPUSH (02:30)
[2023-03-29] MEDS: Sodium Bicarbonate 8.4% 150 MEQ in Dextrose 5 % 850 ML 100 MEQ IV (02:32)
[2023-03-29 02:35] LABS: Anion Gap 25 (12-20); Blood Urea Nitrogen 22 mg/dL (9-16); Calcium 9.2 mg/dL (8.4-10.2); Carbon Dioxide 11 mmol/L (22-29); Chloride 113 mmol/L (96-108); Creatinine Clr Calc Pharmacy 82.1; Estimated Glomerular Filt Rate > 60; Glucose Random 241 mg/dL (60-115); Potassium 4.5 mmol/L (3.3-5.1); Sodium 144 mmol/L (135-145)
[2023-03-29 02:42] VITALS: BP 98/44; PULSE 125; RESP 24; TEMP 38.2; O2SAT 98
--- NOTE | 2023-03-29 03:20 | PC.NURSE ---
pt left with EMS, transferred to [facility] ICU
[2023-03-29 03:36] LABS: Glucose, Whole Blood 260 mg/dL (60-115)
--- NOTE | 2023-03-29 03:40 | PC.NURSE ---
report given to Rn at [facility]
--- NOTE | 2023-03-29 04:21 | PC.NURSE ---
1950 pt BIBA from home for nausea and vomiting x2 days. pt has family at home with CINDY. pt reported her dexcom and insulin pump were not working. she has been doing finger sticks and giving insulin injections herself but reported. POC >600 at home prior to arrival. EMS report POC of 395. this RN was attempting IV access while asset specialist Mari was setting up to obtain EKG. POC was >600. pt reported needing to vomit, pt vomited into emesis bag. pt was on tele monitor. pt immediately went into V Tach, HR 250. provider made aware, came to bedside. EKG obtained placed EJ to L neck, 1L IV NS hung, labs obtained 2024 mag started 2029 2nd liter hung 2030 central line attempt started, VS 92/72, 99% on 3L, 260 HR 2034 66/25, 262 HR 2036 150mg amiodrone in 100ml started. Verbal Order 2039 126/102, 257 HR 2043 4mg versed administered 2044 1 amp Bicarb, 238 HR 2045 central line placed, R Femoral, triple lumen 2046 calcium gluconate administered, 64/31, 269 HR 2047 sync shock 200j, 123 HR 2048 sinus tach 116 HR, EKG obtained 2049 14 units IV insulin administered, 85/46, 114 HR 2051 blackwood cath placed, minimal output 2054 insulin drip 6 units/hr via central line 2057 79/38 2100 3rd liter hung 2107 norepi drip started 0.05 mcg/kg/hr 2109 pt stablizing 2129 family at bedside BP measurements Q2min cultures obtained, labs redrawn, pt medicated per JUL 2149, pt arousable, happy to see family and grateful to staff for care. pt states she remembers everything and felt immediately better when shocked. pt being transfered to ICU level care, BP remains soft, HR >115, POC q1hr
--- NOTE | 2023-03-29 04:22 | MHC.EDTECH ---
Addendum entered by Dany Chaidez 03/29/23 04:23: CALL OUT TO [facility] AT [phone] Original Note: CALL OUT TO [facility] TRANSFER LINE FOR POSSIBLE TRANSFER, DECLINED FULL CAPACITY, NO ICU BEDS AVAILABLE
--- NOTE | 2023-03-29 04:26 | MHC.EDTECH ---
CALL OUT TO [facility] LINE AT 000 FOR POSSIBLE TRANSFER
--- NOTE | 2023-03-29 04:31 | MHC.EDTECH ---
Addendum entered by Dany Chaidez 03/29/23 04:31: [facility] LINE CALLED BACK AT 0013 Original Note: [facility] LINE CALLED BACK, AT CAPACITY, NO ICU BEDS AVAILABLE
--- NOTE | 2023-03-29 04:32 | MHC.EDTECH ---
CALL OUT TO [facility] LINE AT 0016 FOR POSSIBLE TRANSFER NO ICU BEDS AVAILABLE, AT CAPACITY
--- NOTE | 2023-03-29 04:36 | MHC.EDTECH ---
CALL OUT TO [facility] LINE AT 0019 [employer] WERE FAXED [facility] [facility] CALLED BACK AT 0135 AND ACCEPTED ACCEPTED TO [facility] ICU [place] [address] NURSE TO NURSE # WAS GIVEN
--- NOTE | 2023-03-29 04:41 | MHC.EDTECH ---
CALL OUT TO [facility] AT 0159 TO BOOK TRANSPORT FOR PT TRANSFERRING TO [facility]
--- NOTE | 2023-04-05 22:02 | PC.NURSE ---
2039 verbal order for 4mg midazolam IVpush. This nurse retrieved 2 vials of 2mg midazolam via override from [email or web address] and double checked order with Dr. Lukas Valera and med dosing with Debo Rodgers RN. 4mg Midazolam given at 2043 IVpush.
== END 2023-03-29 05:44 | disposition short-term general hospital (02) ==
PROVIDERS: Emergency Medicine; Internal Medicine; Emergency Provider Emergency Medicine Emergency Medical Services
DX: E10.10 Type 1 diabetes mellitus with ketoacidosis without coma (principal); E87.5 Hyperkalemia; R00.0 Tachycardia, unspecified; Z11.52 Encounter for screening for COVID-19; Z96.41 Presence of insulin pump (external) (internal); F41.8 Other specified anxiety disorders; Z79.4 Long term (current) use of insulin
CPT/HCPCS: 36410; 36415; 36556; 80048; 80076; 81001; 82010; 82803; 82947; 83605; 83735; 84702; 85025; 86140; 87040; 87086; 87502; 87635; 92960; 93005; 96361; 96365; 96367; 96375; 99285; J0171; J0613; J0696; J3480; J7120

== ENCOUNTER 2023-04-17 10:46 | Outpatient (AMB) | payer OTHER, MEDICAID, SELFPAY ==
--- NOTE | 2023-04-17 11:01 | MHC.OFFVIS ---
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 Intake Note: New patient Tachycardia has seen [facility] in the past feeling better [employer] Required: No Embossing Unit Operator: Embossing Unit Operator Present Accompanied by: mother and sister Allergies No Known Allergies Allergy (Verified 10/26/22 10:32) Medication List - Last Reconciled 04/17/23 by Chuckie Rodriguez MD blood sugar diagnostic (OneTouch Verio test strips) As directed blood-glucose sensor (Dexcom G6 Sensor device) As directed blood-glucose transmitter (Dexcom G6 Transmitter device) As directed fluocinolone 0.01% mL topical DAILY insulin lispro (Humalog KwikPen (U-100) Insulin) 0 - 80 units subcut DAILY levonorgestrel (Mirena) intrauterine HPI HPI Comments History of Present Illness Details Thank you for referring Jaz in cardiology consultation today for wide complex tachycardia. 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 About 5 years ago patient had developed flu and subsequently MSSA bacteremia and had developed severe diabetic ketoacidosis and was admitted to [facility] and had a very prolonged hospitalization with multi system organ failure including cardiomyopathy process as per the notes obtain from there. Patient subsequently was treated and did well and recovered from multi-system organ failure and there is some mention about improvement in LV ejection fraction I do not have copies of any of the echocardiogram from then. Patient did not have any significant arrhythmias at that time but noted on the chart that she had prolonged QT interval and was suspected to be due to lot of medications. Since then she has developed a foot drop in the left lower extremity and has tendency of falling and has poor balance. More recently patient came to the hospital with not feeling well and subsequently was noted to have diabetic ketoacidosis with severe metabolic acidosis and hyperkalemia. Subsequently while in the emergency room patient developed wide complex tachycardia which appears like ventricular tachycardia. Patient then immediately underwent conscious sedation and synchronized cardioversion with resolution of her wide complex tachycardia. She was then aggressively treated for acidosis, diabetes as well as electrolyte disturbance with hyperkalemia and was subsequently transferred to hospital in [place]. There she was treated for diabetic ketoacidosis and had no recurrent problems. Patient comes for repeat evaluation for this wide complex tachycardia. Patient has not had any recurrent syncopal events, palpitations. She denies any shortness of breath, orthopnea, PND, leg edema. Her EKG post cardioversion in the emergency room at shown mild QTC prolongation. EKG today shows normal QTC interval. There is strong family history of premature coronary artery disease in her father. There is also history of sudden cardiac that in a great grandmother on the mother's side dying at age of 27, as per the mother possibly related to rheumatic fever. However she is not sure. [facility] Medical History Emphysematous cystitis Diabetic coma Migraine with aura Diabetes mellitus Kidney failure Surgical History H/O right heart catheterization Family History Sister Depression Anxiety Bipolar 1 disorder Mother Alcohol abuse Father Alcohol abuse Social History Housing: House Alcohol intake: never Patient Tobacco Use Status: Never used Tobacco e-Cigarette/Vaping Use: Never Used service: No Current occupational status: unemployed Sexual orientation: Straight/Heterosexual Gender identity: Female Cognitive needs: No Hearing needs: No Vision needs: Yes Female Reproductive History Menstrual Age of Menarche: 13 Review of Systems Const Denies chills, Denies daytime sleepiness, Denies fatigue, Denies fever(s), Denies frequent falls, Denies poor appetite, Denies snoring, Denies stops breathing during sleep, Denies weakness, Denies weight gain and Denies weight loss Eyes Denies loss of vision ENT Denies dizziness and Denies hearing loss Card Denies chest pain, Denies claudication, Denies leg edema, Denies lightheadedness, Denies palpitations, Denies dyspnea, Denies dyspnea on exertion and Denies orthopnea Resp Denies cough, Denies excessive phlegm production, Denies dyspnea, Denies dyspnea on exertion, Denies snoring and Denies wheezing GI Denies abdominal pain, Denies hematochezia, Denies change in bowel habits, Denies nausea and Denies vomiting Denies urinary frequency and Denies dysuria Musc Denies arthralgias, Denies muscle weakness, Denies numbness and Denies other (frequent falls) Skin/Breast Denies nail changes and Denies rash Neuro Denies Abnormal speech present, Denies dizziness, Denies frequent falls, Denies loss of vision, Denies memory loss, Denies numbness and Denies weakness Psych Denies depression and Denies memory loss Endo Denies fatigue and Denies palpitations Nayan/Lymph Reports easy bruising and Reports other (anemia) Aller/Immun Denies wheezing Physical Exam Vital Signs: Last Vital Signs Pulse 90 04/17/23 11:02 BP 120/78 04/17/23 11:02 BMI result Body Mass Index 36.7 Const General: cooperative, comfortable, no acute distress, alert and awake Nutritional Appearance: obese Orientation/consciousness: patient oriented x3 Limitations: no limitations HEENT Head: Yes normocephalic and Yes atraumatic Neck Neck: Yes trachea midline, Yes supple and Yes no JVD Resp Effort & Inspection: normal respiratory effort Auscultation: clear to auscultation bilaterally Cardio Jugular venous distension: no JVD Palpation: normal PMI Rate: regular rate Rhythm: regular rhythm Heart sounds: S1 normal heart sound present, S2 normal heart sound present, no click, no gallops, no murmurs and no rubs GI Auscultation: normal bowel sounds Skin General skin exam: no rashes or lesions noted Neuro General: patient oriented x3 and no focal motor deficits Speech: No Abnormal speech present Extrem General: Yes no clubbing, cyanosis or edema Office Procedures EKG Details: EKG shows normal sinus rhythm with rightward axis with low-voltage QRS . QTC is 452 milliseconds [id number], Complete Assessment & Plan Assessment & Plan (1) Ventricular tachycardia: Code(s): I47.20 - Ventricular tachycardia, unspecified Plan: Patient with 12 lead EKG suggestive ventricular tachycardia which was successfully cardioverted in the emergency room when she came in with severe metabolic acidosis related to diabetic ketoacidosis with marked electrolyte abnormality with hypokalemia as well as marked acidosis. Patient subsequently was treated aggressively for diabetic ketoacidosis at facility in [place] and has done well since then. She has had no recurrent symptoms of syncope. She also has prior history of what appears to be either stress-induced or sepsis induced cardiomyopathy when she was 19 years old and was admitted to [facility] for again diabetic ketoacidosis. Given her longstanding diabetes as well as family history of premature coronary artery disease in the father, obstructive coronary artery disease needs to be ruled out. She cannot exercise on the treadmill due to her musculoskeletal/neuropathic limitations. Will suggest a vasodilating myocardial perfusion imaging for the same. Will also suggest an echocardiogram to evaluate for cardiac structure and function as she has prior history of LV systolic dysfunction and is at likelihood of having diabetic cardiomyopathy or cardiomyopathy process by itself. This would pattern changer and repairer. This was discussed with her. However most likely the arrhythmias were induced by severe metabolic abnormalities when she presented at that time and likelihood of recurrence is low. She has also had QT prolongation under stressful situation with electrolyte abnormality as well as with QT prolonging medications. EKG from today does not show QT prolongation. Will follow up in the clinic after above testing. Greater than 40 minutes were spent in discussing with her care and management. Orders: Orders CA echo transthoracic complete Today I47.20 - Ventricular tachycardia, unspecified CA lexiscan stress w nicholas Today I47.20 - Ventricular tachycardia, unspecified Coding Level of Care Code New Pt Level 5 (44944) Diagnoses Ventricular tachycardia I47.20 CPT Codes EKG - CPT: 75919-[id number], Complete ([id number])
[2023-04-17 11:02] VITALS: BP 120/78; PULSE 90; BMI 36.7
== END 2023-04-17 11:46 | disposition home or self-care (01) ==
PROVIDERS: Visit Provider Internal Medicine Cardiovascular Disease
DX: I47.20 Ventricular tachycardia, unspecified (principal)
CPT/HCPCS: 93010; 99204

== ENCOUNTER 2023-04-17 10:46 | Outpatient (REF) | payer OTHER, MEDICAID, SELFPAY ==
[2023-04-17 13:52] LABS: Creatinine Urine 182.89 mg/dL
[2023-04-17 13:54] LABS: Cholesterol 168 mg/dL (<200); HDL Cholesterol 62 mg/dL (>40); LDL Cholesterol Calculated 90 mg/dL (<100); Triglycerides 82 mg/dL (<150)
[2023-04-18 13:48] LABS: Transglutaminase IgA 1.8 U/mL
== END 2023-04-17 10:47 | disposition home or self-care (01) ==
LOC: HO.LAB 10:46
PROVIDERS: Absent Provider Pediatrics Pediatric Endocrinology; Visit Provider Internal Medicine Cardiovascular Disease
DX: E10.65 Type 1 diabetes mellitus with hyperglycemia (principal)
CPT/HCPCS: 36415; 80061; 82043; 82570; 86364; 93005

== ENCOUNTER → 2023-05-07 10:46 | Outpatient (REF) | payer OTHER, MEDICAID, SELFPAY ==
--- NOTE | 2023-05-07 10:49 | CA_ITS ---
Transthoracic Echocardiogram Patient (Last, First, Middle): Jaz Haji Lee Gender: Female Date of : 2000 Age: 23 Procedure Date: 05/07/2023 Procedure Type: Transthoracic Echocardiogram Location: OP Height: 157.48 cm Weight: 92.08 kg BSA: 1.92 m2 Heart Rate: bpm BP: 108 / 68 mmHg Para Machine Operator: ONI/ILIANA Referring MD: Chuckie Rodriguez MD Symptoms: I47.20 - Ventricular tachycardia, unspecified Study Quality: Adequate ECG Rhythm: Sinus Conclusions: - The left ventricular systolic function is normal. The calculated ejection fraction is 63% by biplane method. - No obvious valvular pathology seen on this study. Findings Left Ventricle Normal left ventricular cavity size. There is normal left ventricular wall thickness. The left ventricular systolic function is normal. The calculated ejection fraction is 63% by biplane method. There is no evidence of regional wall motion abnormalities. Diastolic function is normal for age. Right Ventricle Normal right ventricular cavity size and systolic function. Atria Both atria are normal in size. Aortic Valve There is a normal trileaflet aortic valve. There is no aortic valve stenosis. There is no aortic valve regurgitation. Mitral Valve The mitral valve appears normal. There is no mitral valve regurgitation. There is no mitral valve stenosis. Pulmonic Valve The pulmonic valve is likely normal. Tricuspid Valve Normal tricuspid valve structure. There is trace tricuspid valve regurgitation. There is no evidence of pulmonary hypertension. Great Vessels The asc aorta is normal in size. Venous The inferior vena cava is normal in size and collapses greater than 50% with inspiration. Pericardium/Pleural There is no evidence of pericardial effusion. Prior Study Comparison No prior study available for comparison. Recommendations, Care & Conclusions No obvious valvular pathology seen on this study. Measurements 2D Linear Measurements IVSd: 0.59 0.6-0.9/0.6-1.0 cm LVIDd: 4.97 3.9-5.3/4.2-5.9 cm LVIDd Index: 2.59 2.4-3.2/2.2-3.1 cm/m2 LVIDs: 3.30 2.0-3.6 cm LVPWd: 0.79 0.7-1.1 cm LA Diam: 3.10 2.7-3.8/3.0-4.0 cm LAIDs Index: 1.61 1.5-2.3 cm/m2 LV Mass: 139.37 67-162/88-224 g LV Mass Index: 72.59 43-95/49-115 g/m2 LVOT Diam: 2.00 3.0+(-)1.3 cm 2D Systolic Function EF 4C: 61.80 >55% EF 2C: 63.90 >55% EF BiP: 62.50 >55% Mitral Valve MV Pk E: 0.97 MV PK A: 0.42 MV Decel Time: 181.00 E/A: 2.30 E'Lateral: 16.10 E'Medial: 13.40 E/E' Med: 7.30 E/E' Lat: 6.00 PHT: 53.00 MVA PHT: 4.15 Decel [place]: 5.36 Aortic Valve AoV Pk Damian: 1.20 AoV Mn Damian: 0.83 AoV VTI: 0.27 AoV Pk Grad: 6.00 Aov Mn Grad: 3.00 SVEN Cont.VTI: 1.92 LVOT LVOT Pk Damian: 0.79 LVOT Mn Damian: 0.57 LVOT VTI: 0.16 LVOT Pk Grad: 2.00 LVOT Mn Grad: 1.00 LVOT Diam: 2.00 LVOT Area: 3.14 Diastolic Function MV Pk E: 0.97 MV Pk A: 0.42 E/A: 2.30 E'Medial: 13.40 E/E' Med: 7.30 E' Laterial: 16.10 E/E' Lat: 6.00 Right Ventricle TAPSE (mm): 23.60 TVS' Damian: 15.40 Tricuspid Valve RA Press: 3.00 Great Vessels Aorta Sinus of Valsalva: 2.59 2.0-3.5 cm Ao Asc: 2.40 2.1-3.4 cm Updated in Other Vendor System with Status of Final Hiren Sandoval MD electronically signed on 05/08/2023 11:34:30 AM with status of Final
== END ==
LOC: HO.CARD 10:46
PROVIDERS: Visit Provider Internal Medicine Cardiovascular Disease
DX: I47.20 Ventricular tachycardia, unspecified (principal)
CPT/HCPCS: 93306

== ENCOUNTER → 2023-05-07 10:49 | Outpatient (BNV) | payer OTHER, MEDICAID, SELFPAY | PROVIDERS: Visit Provider Internal Medicine | DX: I47.20 Ventricular tachycardia, unspecified (principal) | CPT/HCPCS: 93306 ==

== ENCOUNTER → 2023-06-07 09:54 | Outpatient (REF) | payer OTHER, MEDICAID, SELFPAY ==
--- NOTE | ~2023-06-07 | NM_ITS ---
Lexiscan Myocardial perfusion study Indication: Wide convex tachycardia, assess for coronary disease and ischemia Technique: The patient was brought in for a Lexiscan perfusion study on 06/07/2023 and was injected 0.4 mg of Lexiscan intravenously. Within a minute of this injection 30 mCi of sestamibi was given intravenously. Images were obtained using the SPECT gamma camera interlaced with the gating device. Images were obtained in supine position. Resting perfusion study was performed on 06/10/2023. Patient was administered 30 mCi of sestamibi intravenously at rest. Images were then obtained in supine position. Images were processed with the software and compared side to side in short axis, horizontal long axis and vertical long axis views. Total DLP 296mGy-cm. Findings: Raw acquisition reviewed. Arms by the patient's side. The stress perfusion study showed reduced tracer uptake in the distal part of lateral wall as well as the adjacent apex. There is improvement with CT attenuation correction suggestive of soft tissue attenuation artifact. The gated study shows reduced LV systolic function with calculated LVEF of 49%, but visually appears higher. LV cavity is normal in size. The gated study shows normal wall thickening and contraction of segments. Resting study shows globally reduced tracer uptake which is due to a hot spot in the subdiaphragmatic area. CT attenuation corrected images are also similar. Gating at rest reveals normal wall motion with ejection fraction at 69%. The findings are consistent with defect in the distal lateral wall/apex in the stress acquisition; normal contractility; probably artifactual. Resting images not interpretable. NM/NM nicholas perf SPECT rest & str Impression: 1. Myocardial perfusion imaging study shows no significant perfusion abnormality based on stress acquisition only. Distal lateral/apical defect has normal contractility and hence could be artifactual. 2. Gated LVEF is 49% during stress and 69% during rest. Correlate with echocardiogram. 3. Transient ischemic dilatation not present. EKG component of the test reported separately.
--- NOTE | 2023-06-07 09:59 | CA_ITS ---
Acquisition Time: 2023-06-07 10:02:33 Total Exercise Time: 00:02:00 Test Indications: SYNCOPE WIDE QRS TACHYCARDIA Medications: Protocol: LEXISCAN Max HR: 134 BPM 67% of Pred: 198 BPM Max BP: 106/054 mmHG Max Work Load: 1.0 METS Pharmacological stress test with Lexiscan injection while sitting and kicking her legs, without anginal symptoms, without arrhythmias, with normotensive response to injection, with nondiagnoistic EKGs. Aminophylline 75mg IVP given to reverse Lexiscan. Nuclear images pending. Test reviewed with Dr. Aponte. Referred By: Chuckie Rodriguez Overread By: Sylvie Rhoades
== END ==
LOC: HO.CARD 09:54
PROVIDERS: Visit Provider Internal Medicine Cardiovascular Disease
DX: I47.20 Ventricular tachycardia, unspecified (principal)
CPT/HCPCS: 78452; 93017; A9500; J0280; J2785

== ENCOUNTER → 2023-06-07 09:59 | Outpatient (BNV) | payer OTHER, MEDICAID, SELFPAY | PROVIDERS: Visit Provider Nurse Practitioner | DX: I47.20 Ventricular tachycardia, unspecified (principal) | CPT/HCPCS: 78452; 93016; 93018 ==

== ENCOUNTER 2023-06-17 09:06 | Outpatient (AMB) | payer OTHER, MEDICAID, SELFPAY ==
--- NOTE | 2023-06-17 09:12 | MHC.PC.OV ---
Vital Signs 06/17/23 09:13 Height 5 ft 2 in Weight 205 lb 6 oz BMI 37.6 BP 124/60 Blood Pressure Location Rt brachial Position Sitting Respiration 13 Pulse 92 Pulse Source Pulse Oximeter Temp 97.8 F Temp Source Temporal Artery Scan Pulse Oximetry (%) 95 Oxygen Delivery Method Room Air Intake Visit Reasons: trans from rod Intake Note: Patient is followed by [facility] and last A1c was done in April and was 11.1. Milking Worker Required: No Accompanied by: Sister Allergies No Known Allergies Allergy (Verified 06/17/23 09:36) Medication List - Last Reconciled 06/17/23 by Pipe Plummer CNP blood sugar diagnostic (PCT InternationalTouch Verio test strips) As directed blood-glucose sensor (Dexcom G6 Sensor device) As directed blood-glucose transmitter (Dexcom G6 Transmitter device) As directed fluocinolone 0.01% mL topical DAILY insulin lispro (Humalog KwikPen (U-100) Insulin) 0 - 80 units subcut DAILY levonorgestrel (Mirena) intrauterine Tobacco use date assessed: 06/17/23 Dental Screening Dental Screen Date: 06/17/23 Did you have a dental visit in the last 12 months?: No Did you have a dental problem in the last 6 months where you did not have access to dental care?: No Was dental information given to patient?: Yes HPI HPI Comments History of Present Illness Details 23-year-old female, accompanied by her sister, presents for transfer of care Her former PCP is CHANDAN who is no longer with the practice She has history of type 1 diabetes, anxiety, and depression She notes she is followed by [facility] pediatric endocrinology. Her last A1c was in April 2023, 11.1. Her next appointment is July 15, 2022. She wants to transferred to [facility] [place] She notes that she has not taken psychotropic medication since her Fluoxetine was discontinued by her former PCP 10 months ago. She reports improved anxiety and depression on Fluoxetine but her former PCP discontinued the medication because she wanted to see how i'll act off of it. She denies adverse reactions or SI while on Fluoxetine. She notes that her anxiety and depression symptoms have progressively worsened. She also believes she has bipolar with mood swings and agitation, no rohini. No formal bipolar diagnosis. She would like restart Fluoxetine. She is not followed by a therapist or psychiatrist. She is on a wait list with [facility] for therapy She denies acute symptoms at this time [facility] Medical History (Updated 06/17/23 @ 10:12 by Pipe Plummer CNP) Emphysematous cystitis Diabetic coma Migraine with aura Diabetes mellitus Kidney failure Surgical History (Updated 06/17/23 @ 09:20 by Concepcion Chavez MA) History of cataract removal with insertion of prosthetic lens H/O right heart catheterization Family History Sister Depression Anxiety Bipolar 1 disorder Mother Alcohol abuse Father Alcohol abuse Other Substance abuse Social History Housing: House Alcohol intake: never Patient Tobacco Use Status: Never used Tobacco e-Cigarette/Vaping Use: Never Used service: No Current occupational status: unemployed Sexual orientation: Straight/Heterosexual Gender identity: Female Cognitive needs: No Hearing needs: No Vision needs: Yes Female Reproductive History Menstrual Age of Menarche: 13 Questionnaire PHQ-9 Over the last 2 weeks, how often have you been bothered by any of the following problems? 1. Little interest or pleasure in doing things: more than half the days 2. Feeling down, depressed, or hopeless: nearly every day 3. Trouble falling or staying asleep, or sleeping too much: more than half the days 4. Feeling tired or having little energy: more than half the days 5. Poor appetite or overeating: several days 6. Feeling bad about yourself - or that you are a failure or have let yourself or your family down: nearly every day 7. Trouble concentrating on things, such as reading the newspaper or watching television: more than half the days 8. Moving or speaking so slowly that other people could have noticed. Or the opposite - being so fidgety or restless that you have been moving around a lot more than usual: not at all 9. Thoughts that you would be better off or of hurting yourself in some way: not at all Total score: 15 Depression Screening Interpretation: Positive Depression Screening Follow-up: Existing condition, New Medication prescribed and Community Mental Health Worker F/U Depression Screening Done: Yes 93783 - PHQ-9 Billing: Yes Source: Developed by Drs. Chung Delatorre, Rosalia B.Kirt Eng and colleagues, with an educational flakita from [employer]. Thrive Questionnaire Date Thrive assessed: 06/17/23 I am a: Patient What is your living situation today?: I have a steady place to live Within the past 12 months, did the food you bought not last and you didn't have the money to get more?: Never true Within the past 12 months, did you worry whether your food would run out before you got money to buy more?: Never true Do you have trouble paying for medicines?: No Do you have trouble getting transportation to medical appointments?: No Do you have trouble paying your heating and electricity bill?: No Do you have trouble taking care of your child, family member or friend?: No Do you have trouble with day-to-day activities such as bathing, preparing meals, shopping, managing finances, etc.?: No Are you currently unemployed and looking for a job?: Yes Are you interested in more education?: No Please select the resources that you would like help with: Job search/training Currently or been in a relationship where the following occur: no concerns reported THRIVE Score: 0 AUDIT C Alcohol Use Questionnaire (AUDIT-C) 1. How often do you have a drink containing alcohol?: Never 3. How often do you have six or more drinks on one occasion?: Never Total Score: 0 SHARON-7 AMB Questionnaire SHARON-7 Date SHARON - 7 assessed: 06/17/23 Feeling nervous, anxious, or on edge: 2 = More than half the days Not being able to stop or control worryin = Several days Worrying too much about different things: 3 = Nearly every day Trouble relaxin = Several days Being so restless that it is hard to sit still: 3 = Nearly every day Becoming easily annoyed or irritable: 3 = Nearly every day Feeling afraid as if something awful might happen: 2 = More than half the days Total SHARON-7 score (0-4 normal; 5-9 mild; 10-14 moderate; 15-21 severe): 15 Source: Developed by Drs. Chung Delatorre, Kirt Aparicio and colleagues, with an educational flakita from [employer]. SHARON-7 Assessment Billing SHARON-7 Assessment Tool: SHARON-7 Assessment 22620 Review of Systems Const Details: Const Denies chills, Denies fatigue, Denies fever(s), Denies headache(s) and Denies weakness ENT Denies dizziness and Denies headache(s) Card Denies chest pain, Denies lightheadedness, Denies dyspnea and Denies other (Palpitations) Resp Denies cough, Denies dyspnea, Denies wheezing and Denies other ( shortness of breath) GI Denies abdominal pain, Denies melena, Denies hematochezia, Denies change in bowel habits, Denies dyspepsia and Denies nausea Denies hematuria and Denies dysuria Musc Denies abnormal gait, Denies myalgias, Denies arthralgias, Denies numbness and Denies tingling Skin/Breast Denies rash, Denies unusual bruising and Denies wounds Neuro Denies abnormal gait, Denies dizziness, Denies headache(s), Denies memory loss, Denies numbness, Denies Sensory deficit (Neuro), Denies tingling and Denies weakness Psych Reports anxiety, Reports depression, Denies memory loss Endo Denies cold intolerance, Denies fatigue, Denies heat intolerance, Denies polydipsia and Denies polyuria Aller/Immun Denies wheezing Physical exam (Primary Care) Vital Signs: Last Vital Signs Temp 97.8 F 06/17/23 09:13 Pulse 92 06/17/23 09:13 Resp 13 06/17/23 09:13 BP 124/60 06/17/23 09:13 Pulse Ox 95 06/17/23 09:13 Oxygen Delivery Method Room Air 06/17/23 09:13 BMI result Body Mass Index 37.6 Tobacco/Smoking Status: Tobacco use Status Tobacco use date assessed 06/17/23 06/17/23 09:23 Patient Tobacco Use Status Never used Tobacco 06/17/23 09:23 e-Cigarette/Vaping Use Never Used 06/17/23 09:23 PHQ-9: PHQ-9 Score PHQ-9: Total score 15 06/17/23 09:24 Depression Screening Interpretation: Positive Depression Screening Follow-up: Existing condition, New Medication prescribed and Community Mental Health Worker F/U Thrive Assessment: Date of Thrive Assessment Date Thrive assessed 06/17/23 06/17/23 09:23 Currently or been in a relationship where the following occur: no concerns reported Const Other: General: no acute distress and well developed Nutritional Appearance: well nourished Orientation/consciousness: patient oriented x3 HENMT Head: Yes normocephalic and Yes atraumatic Eyes General: appearance normal, both eyes and all related structures Pupils: Equal, round and reactive pupils present EOM: EOMs intact bilaterally Resp Effort & Inspection: normal respiratory effort Auscultation: clear to auscultation bilaterally Cardio Rate: regular rate Rhythm: regular rhythm Heart sounds: S1 normal heart sound present, S2 normal heart sound present, no gallops, no murmurs and no rubs GI Palpation (GI): No Abdominal aortic bruit present, Soft to palpation, nontender, No hepatosplenomegaly present and No Rebound tenderness present Auscultation: normal bowel sounds General: Yes no CVA tenderness Back/Spine/Pelvis Back: no CVA tenderness Cervical Spine: cervical ROM normal and No Cervical spine tenderness Thoracic/Lumbar Spine: thoraco-lumbar ROM normal, No pain with thoraco-lumbar ROM, No thoracic spinal tenderness and No lumbar spinal tenderness Extrem General: Yes normal to inspection, No edema and No calf tenderness Skin General: warm and dry. Normal skin color. Normal skin turgor Neuro General: patient oriented x3, gait normal and no focal neuro deficit Cranial nerves: Yes Equal, round and reactive pupils present Cognition (Neuro): normal cognition Gait exam (Neuro): Normal gait present Sensory Exam: No Sensory deficit (Neuro) Psych Appearance: grossly normal Affect: normal affect Attitude: cooperative Thought process: Normal thought process present Assessment and Plan Assessment & Plan (1) Depression with anxiety: Code(s): F41.8 - Other specified anxiety disorders Plan: Depression and anxiety symptoms have progressively worsened since fluoxetine was discontinued 10 months ago Notes mood swings and agitation which she states is due to bipolar disorder PHQ-9 and SHARON-7 scores revealed moderately severe depression and severe anxiety respectively Fluoxetine ordered. Take as prescribed Routine exercise encouraged She met with the community navigator who would refer her to a therapist and psychiatrist Follow-up in 2 weeks or return sooner with worsening or new symptoms Verbalized understanding and agreed with treatment plan (2) Type 1 diabetes: Code(s): E10.9 - Type 1 diabetes mellitus without complications Plan: Followed by [facility] pediatric Endocrinology. Previous A1c last month was 11.1% Continue current treatment regimen ADA diet and routine exercise encouraged Follow-up as planned Referred to [facility] end[facility] Verbalized understanding and agreed with treatment plan Orders: Orders Lipid Panel Today E10.9 - Type 1 diabetes mellitus without complications, Z00.00 - Encounter for general adult medical examination without abnormal findings Complete Blood Count Auto Diff Today Z00.00 - Encounter for general adult medical examination without abnormal findings Complete Blood Count no Diff Today Z00.00 - Encounter for general adult medical examination without abnormal findings TSH reflex Free T4 Today Z00.00 - Encounter for general adult medical examination without abnormal findings UA CC w/rflx Micro + Cult Today Z00.00 - Encounter for general adult medical examination without abnormal findings Referrals Endocrinology Referral E10.9 - Type 1 diabetes mellitus without complications Medications: New fluoxetine 20 mg PO DAILY 30 tabs 3RF 30 days Coding Level of Care Code Est Pt Level 4 (93326) Diagnoses Depression with anxiety F41.8 Type 1 diabetes E10.9 Additional Codes SHARON-7 Assessment Billing - SHARON-7 Assessment Tool: SHARON-7 Assessment 53004 ([id number])
[2023-06-17 09:13] VITALS: BP 124/60; PULSE 92; RESP 13; TEMP 36.6; O2SAT 95; BMI 37.6
== END 2023-06-17 10:36 | disposition home or self-care (01) ==
PROVIDERS: PCP Hospitalist; Visit Provider Nurse Practitioner Family
DX: E10.9 Type 1 diabetes mellitus without complications (principal); F41.8 Other specified anxiety disorders
CPT/HCPCS: 96127; 99214

== ENCOUNTER 2023-06-21 09:50 | Outpatient (AMB) | payer OTHER, MEDICAID, SELFPAY ==
--- NOTE | 2023-06-21 09:56 | A.OFFVIS_ITS ---
Intake Vital Signs 06/21/23 09:58 Height 5 ft 2 in Weight 207 lb 3.752 oz BMI 37.9 BP 108/62 Blood Pressure Location Lt brachial Position Sitting Pulse 83 Intake Visit Reasons: fu after testing Intake Note: follow up Corporate Travel Consultant Required: No Accompanied by: Mother Allergies No Known Allergies Allergy (Verified 06/21/23 09:59) Medication List - Last Reconciled 06/21/23 by PETRA [place]C blood sugar diagnostic (OneTouch Verio test strips) As directed blood-glucose sensor (Dexcom G6 Sensor device) As directed blood-glucose transmitter (Dexcom G6 Transmitter device) As directed fluocinolone 0.01% mL topical DAILY fluoxetine 20 mg PO DAILY 30 days insulin lispro (Humalog KwikPen (U-100) Insulin) 0 - 80 units subcut DAILY levonorgestrel (Mirena) intrauterine HPI fu after testing HPI Details Jaz is a 23-year-old female with past medical history of insulin- dependent diabetes since age 15, 5 years ago developed influenza and subsequent MSSA bacteremia with severe DKA and was admitted to [facility] for prolonged hospitalization with multi-system organ failure including cardiomyopathy with eventual recovery. More recently she presented to [facility] again with DKA, severe metabolic acidosis. She developed wide complex tachycardia requiring cardioversion. She was treated aggressively for electrolyte disturbances and transferred to a hospital in [place]. Her EKG initially had shown prolonged QTC interval. On last visit she was seen for cardiology consultation in follow-up of the wide complex tachycardia. She has not had any known recurrent episodes and no recurrent DKA. EKG done on last visit showed normal QTC interval. Today she reports she has been doing well since her last visit in April. She tells me that her diabetes is up and down. Her mother is present and reports that her daughter has issues with noncompliance. No chest discomfort at rest or with activity. No shortness of breath, palpitations, presyncope, syncope, PND, orthopnea or edema. She has issues with ambulation due to footdrop on her left lower extremity. Mother, sister and nephew are present. [facility] Medical History Emphysematous cystitis Diabetic coma Migraine with aura Diabetes mellitus Kidney failure Surgical History History of cataract removal with insertion of prosthetic lens H/O right heart catheterization Family History Sister Depression Anxiety Bipolar 1 disorder Mother Alcohol abuse Father Alcohol abuse Other Substance abuse Social History Housing: House Alcohol intake: never Patient Tobacco Use Status: Never used Tobacco e-Cigarette/Vaping Use: Never Used service: No Current occupational status: unemployed Sexual orientation: Straight/Heterosexual Gender identity: Female Cognitive needs: No Hearing needs: No Vision needs: Yes Female Reproductive History Menstrual Age of Menarche: 13 Review of Systems Const All systems reviewed & are unremarkable except as noted in HPI and below Denies weakness ENT Denies dizziness Card Denies chest pain, Denies chest pain with activity, Denies syncope, Denies rapid heart rate, Denies pedal edema, Denies edema, Denies leg edema, Denies lightheadedness, Denies palpitations, Denies dyspnea, Denies dyspnea on exertion and Denies orthopnea Resp Denies cough, Denies dyspnea and Denies dyspnea on exertion GI Denies hematochezia and Denies change in stool character Musc Denies abnormal gait, Denies muscle cramps, Denies muscle weakness, Denies numbness, Denies radiating pain into limb and Denies tingling Neuro Denies abnormal gait, Denies dizziness, Denies syncope, Denies numbness, Denies tingling and Denies weakness Endo Denies palpitations Physical Exam Vital Signs: Last Vital Signs Pulse 83 06/21/23 09:58 BP 108/62 06/21/23 09:58 BMI result Body Mass Index 37.9 Const General: cooperative, healthy appearing, comfortable and no acute distress Orientation/consciousness: patient oriented x3 Neck Neck: Yes normal visual inspection Resp Effort & Inspection: normal respiratory effort Auscultation: clear to auscultation bilaterally, no rales, no rhonchi and no whe ezes Cardio Jugular venous distension: no JVD Rate: regular rate Rhythm: regular rhythm Heart sounds: S1 normal heart sound present, S2 normal heart sound present, no murmurs and no rubs Neuro General: patient oriented x3 Extrem General: Yes normal to inspection and No no pedal edema Psych Appearance: grossly normal Mental Status: mental status grossly normal Speech and movement: Normal speech and movement present Assessment & Plan Assessment & Plan (1) Ventricular tachycardia: Code(s): I47.20 - Ventricular tachycardia, unspecified Plan: Witnessed episode ventricular tachycardia requiring cardioversion while in the [facility] emergency room for DKA and metabolic disturbances. QTC was prolonged at that time and electrolytes were replaced. Echocardiogram done 05/07/2024 showed EF 63%, no valve abnormalities, no evidence of regional wall motion abnormalities. She underwent a nuclear stress test on 06/07/2023 showing no significant perfusion abnormality based on stress acquisition only, there is a distal lateral apical defect which has normal contractility and could be artifactual. T.i.d. not present. EF 49% with stress and 69% with rest. Test results reviewed with her. She has not had any lightheadedness, presyncope, syncope. She does not notice heart palpitations. Will check a Holter monitor to ensure there is no recurrent NSVT. Will discuss any need for med management with her primary locum tenens Dr. Lu. Blood pressure is on the low side at 108/62. The importance of strict diabetic control reviewed with her. Cardiology follow-up in the office 6 months, sooner if needed (2) Diabetes mellitus: Comment: non compliant Code(s): E11.9 - Type 2 diabetes mellitus without complications Plan: As above Plan Time spent on chart review, documentation, interview and assessment Orders: Orders ECG 3 day holter monitor Today I47.20 - Ventricular tachycardia, unspecified Coding Level of Care Code Est Pt Level 3 (64828) Diagnoses Ventricular tachycardia I47.20 Diabetes mellitus E11.9 Time Spent (min) 24
[2023-06-21 09:58] VITALS: BP 108/62; PULSE 83; BMI 37.9
== END 2023-06-21 10:29 | disposition home or self-care (01) ==
PROVIDERS: Visit Provider Nurse Practitioner Family
DX: I47.20 Ventricular tachycardia, unspecified (principal); E11.9 Type 2 diabetes mellitus without complications
CPT/HCPCS: 99213

== ENCOUNTER → 2023-06-21 09:50 | Outpatient (BNVA) | payer OTHER, MEDICAID, SELFPAY | PROVIDERS: Visit Provider Nurse Practitioner Family ==

== ENCOUNTER 2023-07-01 08:40 | Outpatient (REF) | payer OTHER, MEDICAID, SELFPAY ==
[2023-07-01 08:55] LABS: MANUAL DIFF FLAG NO
[2023-07-01 09:21] LABS: Appearance Urine Turbid; Color Urine Yellow; Glucose Urine UA Negative (Negative); Leukocyte Esterase Urine Large (3+) (Negative); Nitrite Urine Negative (Negative); PH 6.5 (5.0-9.0); Specific Gravity - Urine 1.025 (1.005-1.025); UMIC TRIGGER UACC YES; Urine Blood Negative (Negative); Urine Ketones Negative (Negative); Urine Protein 30 (1+) mg/dL (Neg-Trace)
[2023-07-01 09:26] LABS: Basophils Absolute Auto 0.1 X10*3/uL (0.0-0.2); Basophils Percent Auto 0.5 % (0-2); Eosinophils Absolute Auto 0.2 X10*3/uL (0.0-0.4); Eosinophils Percent Auto 1.6 % (0-4); Hematocrit 40.9 % (37.0-47.0); Imm Gran Abs Auto 0.04 X10*3/uL (0.00-0.03); Imm Gran Pct Auto 0.4 % (0.0-0.4); Lymphocytes Absolute Auto 3.5 X10*3/uL (1.2-4.9); Lymphocytes Percent Auto 34.3 % (20-40); Mean Corpuscular HGB Conc 29.3 g/dl (31.0-35.0); Mean Corpuscular Hemoglobin 23.5 pg (27.0-33.0); Mean Platelet Volume 9.3 fL (9.4-12.3); Monocytes Absolute Auto 0.5 X10*3/uL (0.1-1.2); Monocytes Percent Auto 4.5 % (2-11); Neutrophils Absolute Auto 5.9 x10*3/uL (2.0-8.3); Neutrophils Percent Auto 58.7 % (45-73); Platelet Count 355 X10*3/uL (160-400); Red Blood Count 5.11 X10*6/uL (4.20-5.50); White Blood Count 10.1 X10*3/uL (4.8-10.8)
[2023-07-01 09:38] LABS: Bacteria Urine 4+ (None Seen); RBC Urine 0-2 /HPF (0-2); Squamous Epithelial Cell Urine >20 /HPF (0-2); UACC Culture Trigger YES; WBC Urine >50 /HPF (0-5)
[2023-07-01 10:01] LABS: Cholesterol 174 mg/dL (<200); HDL Cholesterol 58 mg/dL (>40); LDL Cholesterol Calculated 97 mg/dL (<100); Triglycerides 99 mg/dL (<150)
[2023-07-01 10:18] LABS: TSH reflex Free T4 4.24 uIU/mL (0.32-4.0)
[2023-07-01 11:34] LABS: Free T4 (Free Thyroxine) 0.83 ng/dL (0.71-1.85)
== END 2023-07-01 08:41 | disposition home or self-care (01) ==
LOC: HO.LAB 08:40
PROVIDERS: PCP Nurse Practitioner Family; Visit Provider Nurse Practitioner Family
DX: Z00.00 Encounter for general adult medical examination without abnormal findings (principal); E10.9 Type 1 diabetes mellitus without complications; R82.90 Unspecified abnormal findings in urine
CPT/HCPCS: 36415; 80061; 81001; 84439; 84443; 85025; 87086; 87088; 87186

== ENCOUNTER → 2023-07-09 08:17 | Outpatient (REF) | payer OTHER, SELFPAY ==
--- NOTE | 2023-07-09 08:21 | HM_ITS ---
Conclusion: 1. Patient was monitored for total period of 3 days 2. Baseline was normal sinus with average heart of 86 beats per minute 3. No significant pauses or arrhythmias noted 4. Patient marked the counter 1 time with no associated symptoms correlating with sinus tachycardia MTDD
== END ==
LOC: HO.CARD 08:17
PROVIDERS: PCP Nurse Practitioner Family; Visit Provider Nurse Practitioner Family
DX: I47.20 Ventricular tachycardia, unspecified (principal)
CPT/HCPCS: 93242

== ENCOUNTER → 2023-07-09 08:21 | Outpatient (BNV) | payer OTHER, SELFPAY | PROVIDERS: PCP Nurse Practitioner Family; Visit Provider Internal Medicine Cardiovascular Disease | DX: I47.20 Ventricular tachycardia, unspecified (principal) | CPT/HCPCS: 93244 ==

== ENCOUNTER 2024-07-02 12:51 | Outpatient (AMB) | payer OTHER, SELFPAY ==
--- NOTE | 2024-07-02 12:55 | A.OFFVIS_ITS ---
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 Seen at Urgent care, was told all negative. Now has a rash with cuts in her groins. She reports improved glucose control with her new pump. Mirena is place, no bleeding. Currently is not sexually active. She denies vaginal itching and irritation. STI screening offered; she accepts. She tries to eat healthy and stays active with exercise. Denies family history of breast, ovarian or colon cancer. [facility] Medical History Emphysematous cystitis Diabetic coma Migraine with aura Diabetes mellitus Kidney failure Surgical History History of cataract removal with insertion of prosthetic lens H/O right heart catheterization Family History Sister Depression Anxiety Bipolar 1 disorder Mother Alcohol abuse Father Alcohol abuse Other Substance abuse Social History Housing: House Alcohol intake: never Patient Tobacco Use Status: Never used Tobacco e-Cigarette/Vaping Use: Never Used service: No Current occupational status: unemployed Sexual orientation: Straight/Heterosexual Gender identity: Female Cognitive needs: No Hearing needs: No Vision needs: Yes Female Reproductive History Menstrual Age of Menarche: 13 control method: progestin IUCD (Mirena) Total pregnancies: 0 Review of Systems Const All systems reviewed & are unremarkable except as noted in HPI and below Reports as per HPI Eyes Reports no additional complaints ENT Reports no additional complaints Card Reports no additional complaints Resp Reports no additional complaints GI Reports as per HPI and Reports no additional complaints Reports as per HPI Musc Reports no additional complaints Skin/Breast Reports as per HPI Neuro Reports no additional complaints Psych Reports no additional complaints Endo Reports no additional complaints Nayan/Lymph Reports no additional complaints Aller/Immun Reports no additional complaints Physical Exam Vital Signs: Last Vital Signs BP 106/68 07/02/24 13:02 BMI result Body Mass Index 39.1 Const General: cooperative, healthy appearing, no acute distress, well developed and alert Orientation/consciousness: patient oriented x3 HEENT Head: Yes normal to inspection Eyes General: appearance normal, both eyes and all related structures Neck Neck: Yes normal visual inspection Thyroid: Thyroid normal Chest Chest palpation & inspection: normal inspection of the chest and other (no puckering, dimpling, peau de orange, retraction, discharge, masses) Breast/axilla inspection: normal inspection of the breasts Breast/axilla palpation: normal palpation of the breasts Resp Effort & Inspection: normal respiratory effort GI Inspection: Yes normal to inspection Palpation (GI): Soft to palpation Rectal Exam - Female: deferred Other: Extensive fungal rash of the mons, bilateral groins, entire vulva extending to perianal region. General: Yes bladder normal to palpation External Female Exam: normal external appearance and normal appearance of the urethra Speculum Exam - Vagina: normal appearance of the vagina, normal palpation and abnormal vaginal discharge (White clumpy) Speculum Exam - Cervix: normal appearance of the cervix, normal palpation and Other cervical findings present (IUD string at the os) Bimanual exam- vagina & uterus: normal bimanual exam, normal palpation, uterine size normal, bladder normal to palpation, normal palpation and non-tender Bimanual Exam- Adnexa, other: no masses Skin General skin exam: no rashes or lesions noted Rashes: no rashes Neuro General: patient oriented x3 Cognition (Neuro): normal cognition Extrem General: Yes normal to inspection Psych Attitude: cooperative Thought process: Normal thought process present Assessment & Plan Assessment & Plan (1) Encounter for well woman exam with routine gynecological exam: Code(s): Z01.419 - Encounter for gynecological examination (general) (routine) without abnormal findings Category: Medical Plan: Discussed: Current recommendations for pap smears per ASCCP guidelines. Breast awareness and periodic breast exams. Maintain a healthy lifestyle including a well balanced diet and routine exercise. Use condoms for STI and prevention. Patient verbalizes understanding and agrees to the plan of care. She was given opportunity to ask questions and all questions were answered to the best of my ability. RTO in one year for annual solar installation supervisor examination. This note is constructed using voice recognition software. While every effort has been made to ensure accuracy, digital editor errors may have been included. (2) Vulvar rash: Code(s): R21 - Rash and other nonspecific skin eruption Plan Discussed: Skin care, use of medication, encouraged good diabetic control, await BV panel for final results on vaginal swab. Rx sent to pharmacy for treatment to be initiated. Total time I personally spent on visit and management today: ?10 minutes. Time spent included review of pertinent office notes in the electronic health record; review of laboratory and imaging results; review of personal family medical history; discussing diagnosis and plan of care with the patient; documenting the encounter in the EMR. Orders: Orders Pap Smear Today Z01.419 - Encounter for gynecological examination (general) (routine) without abnormal findings Bacterial Vaginosis Panel Today Z01.419 - Encounter for gynecological examination (general) (routine) without abnormal findings CT NG by PCR Today Z01.419 - Encounter for gynecological examination (general) (routine) without abnormal findings Medications: New clotrimazole-betamethasone 1-0.05 % 1 appl topical BID 45 grams 3RF 2 weeks terconazole 0.4% 1 appful vaginal BEDTIME 45 grams 0RF 7 days Coding Level of Care Code Est Pt Level 2 (70394) Est Pt Prev Care 18-39y(24191) Diagnoses Encounter for well woman exam with routine gynecological exam Z01.419 Vulvar rash R21
[2024-07-02 13:02] VITALS: BP 106/68; BMI 39.1
--- OUTSIDE RECORDS SUMMARY | 2024-07-02 13:45 | XMS_ITS | Clinical Summary ---
Author Organization [facility] ity Address [address] [place] [address] Care Team Providers Care Client Services Coordinator Name Role Phone Unavailable Primary Care Provider Unavailabl e Social History Tobacco Use Types Packs/Day Years Used Date Smoking Tobacco: Never Assessed Comments Unknown Sex and Gender Information Value Date Recorded Sex Assigned at Not on file Legal Sex Female 9:34 PM EST Gender Identity Not on file Sexual Orientation Not on file Plan of Treatment Health Maintenance Due Date Last Done Comments Gonorrhea/Chlamydia Screening 2001 HPV Vaccines (1 - 3-dose series) 2016 Meningococcal B Vacine (1 of 2 - Standard) 2017 DTaP,Tdap,and Td Vaccines (1 - Tdap) 2020 Hepatitis B Vaccines (1 of 3 - 19+ 3-dose series) 2020 Cervical Cancer Screening: P ap Smear 2022 COVID-19 Vaccine ( - 2023-2 5 season) 2024 Influenza Vaccine (#1) 2024 HIB Vaccines Aged Out No longer eligi ble based on patient's age to complete this topic Hepatitis A Vaccines Aged Out No long er eligible based on patient's age to complete this topic IPV Vaccines Aged Out No longer eligi ble based on patient's age to complete this topic MMR Vaccines Aged Out No longer eligi ble based on patient's age to complete this topic Meningococcal ACWY Vaccine Aged Out N o longer eligible based on patient's age to complete this topic Pneumococcal Vaccine: Pediat rics (0 to 5 Years) and At-Risk Patients (6 to 64 Years) Aged Out No longer eligible b ased on patient's age to complete this topic RSV Immunization Patients Un maria [place] 20 months Aged Out No longer eligible b ased on patient's age to complete this topic Varicella Vaccines Aged Out No longer eligible based on patient's age to complete this topic Advance Directives Documents on File Type Date Recorded Patient Warehouse Traffic Supervisor Expl anation Health Care Decision (hx) 08/21/2019 AD PATINO DIRECTIVE Health Care Decision (hx) 08/10/2019 AD PATINO DIRECTIVE
--- OUTSIDE RECORDS SUMMARY | 2024-07-02 13:45 | XMS_ITS | Encounter Summary ---
Author Organization [facility] Address [address] [place] [address] Phone Care Team Providers Care Scale Installer Name Role Phone Lyly Barroso MD Primary Care Provider [phone] Reason for Visit * Reason Comments Med Refill Encounter Details Date Type Department Care Team (Late st Contact Info) Description 08/31/2020 Refill [facility] [address] [place], [place] [id number] Torrie Sheikh NP [address] [place] [address] Oral contraception initiation Social History Tobacco Use Types Packs/Day Years Used Date Smoking Tobacco: Never Assessed Hunger/Food Answer Date Recorded In the last 12 months, did y ou or your family ever eat less than you felt you should because there wasn't enough money for food? No 08/23/2020 Stable Housing Answer Date Recorded Are you worried that in the next 2 months you may not have stable housing? No 08/23/2020 Transportation Concerns Answer Date Rec orded In the last 12 months, have you or your family ever had to go without healthcare because you didn't have a way to get there? No 08/23/2020 Hazards in Home Answer Date Recorded Think about the place you li ve. Do you have problems with any of the following? Pests (mice or roaches), mold, no/not working smoke detectors, water leaks, no window guards. No 2020 Financing Utilities Answer Date Recorde d In the last 12 months, has t he electric, gas, oil, or water company threatened to shut off your services in your home? No 08/23/2020 Safety at Home Answer Date Recorded Are you or your family worried about feeling saf e in your home? No 08/23/2020 Outside Support Answer Date Recorded Do you feel that you need mo re support from other people or programs to help you care for yourself or your family? No 08/23/2020 Understanding Health Concerns Answer Da te Recorded Do you need help understandi ng your or your child's healthcare needs (diagnosis, medications, plan, etc.)? No 08/23/2020 Financing Health Concerns Answer Date R ecorded In the last 12 months, was t here a time when your child needed to see a doctor or get medications or supplies but could not because of cost? No 08/23/2020 Missing School or Work Answer Date Librado rded Did you or your child miss s chool or work because of a health problem that could have been avoided? No 08/23/2020 Comments No Sex and Gender Information Value Date Recorded Sex Assigned at Female 08/23/2020 2:16 PM EDT Legal Sex Female 6:09 PM EDT Gender Identity Female 08/23/2020 2:16 PM EDT Sexual Orientation Straight 08/23/2020 2: 16 PM EDT documented as of this encounter Miscellaneous Notes * Telephone Encounter - Roberta Barnhart MD - 08/31/2020 8:33 AM EDT Rx reviewed and ePrescribed * Telephone Encounter - Adelaide Cowart MA - 08/31/2020 8:13 AM EDT Refill request for Larissia Last [facility] was 08/23/20 Please review documented in this encounter Plan of Treatment Not on file documented as of this encounter Visit Diagnoses Diagnosis Oral contraception initiation documented in this encounter Care Teams Scale Installer Relationship Specialty Start Date End Date Lyly Barroso MD [address] [facility] [place] [address] PCP - General Pediatrics 06/25/22 03/31/24 documented as of this encounter
--- OUTSIDE RECORDS SUMMARY | 2024-07-02 13:45 | XMS_ITS | Clinical Summary ---
Author Organization [facility] Address [address] [place] [address] Care Team Providers Care Summer Babysitter Name Role Phone Pcp, No Primary Care Provider Unavailabl e Allergies No known active allergies Medications Medication Sig Dispensed Refills Start Date End Date Status Continuous Blood Gluc Sensor (Dexcom G6 Sensor) [facility] USE TO MONITOR BLOOD SUGARS 03/28/2023 Active Insulin Disposable Pump (Omnipod 5 G6 Pod, Gen 5,) [facility] 03/28/2023 Active HumaLOG 100 UNIT/ML injection USE SUBCUTANEOUSLY VIA INSULIN PUMP. MAX DAILY DOSE 100 UNITS. 03/26/2023 Active Insulin Disposable Pump (Omnipod 5 G6 Intro, Gen 5,) Kit 01/08/2023 Active fluocinonide (LIDEX) 0.05 % external solution APPLY TWICE DAILY TO THE SCALP FOR 2 WEEKS ON, THEN TAKE 1 WEEK OFF. REPEAT NEEDED. 02/20/2023 Active Continuous Blood Gluc Transmit (Dexcom G6 Transmitter) [facility] 03/29/2023 Active insulin glargine (LANtus/SEMGLEE) 100 units/mL injectionIndicatio ns:Diabetic ketoacidosis without coma associated with type 1 diabetes mellitus (HCC) Inject 0.3 mL (30 Units total) under the skin 2 (two) times a day. 10 mL 03/31/2023 Active Insulin Lispro (HumaLOG KWIKPEN) 200 UNIT/ML CONCENTRATED prefilled pen injectionIndicatio ns:Diabetic ketoacidosis without coma associated with type 1 diabetes mellitus (HCC) Inject 7 Units under the skin 3 (three) times a day before meals. 6 mL 03/31/2023 Active Insulin Pen Needle 31G X 5 MM MiscIndications:Di abetic ketoacidosis without coma associated with type 1 diabetes mellitus (HCC) Waylon Haji 50 pen needle 03/31/2023 Active Active Problems Problem Noted Date Diagnosed Date Lethargy 03/29/2023 Hypotension 03/29/2023 Hypoxia 03/29/2023 Leukocytosis 03/29/2023 Lactic acidemia 03/29/2023 Hypophosphatemia 03/29/2023 High anion gap metabolic acidosis 03/29/2023 Resolved Problems Problem Noted Date Diagnosed Date Resolved Date DKA (diabetic ketoacidosis) 03/29/2023 07/24/2023 Social History Tobacco Use Types Packs/Day Years Used Date Smoking Tobacco: Never Assessed AUDIT-C Answer Date Recorded Q1: How often do you have a drink containing alcohol? Never 03/29/2023 Q2: How many drinks containi ng alcohol do you have on a typical day when you are drinking? Patient does not drink Q3: How often do you have si x or more drinks on one occasion? Never 03/29/2023 Sex and Gender Information Value Date Recorded Sex Assigned at Not on file Gender Identity Not on file Sexual Orientation Not on file Last Filed Vital Signs Vital Sign Reading Time Taken Comments Blood Pressure 124/86 03/31/2023 3:00 PM EST Pulse 98 03/31/2023 3:00 PM EST Temperature 36.8 ??C (98.2 ??F) 03/31/2023 3:00 PM ES T Respiratory Rate 18 03/31/2023 3:00 PM EST Oxygen Saturation 95% 03/31/2023 3:00 PM EST Inhaled Oxygen Concentration - - Weight 93 kg (205 lb 0.4 oz) 03/30/2023 5:00 AM EST Height 157.5 cm (5' 2 ) 03/29/2023 5:00 AM EST Body Mass Index 37.5 03/29/2023 5:00 AM EST Plan of Treatment Health Maintenance Due Date Last Done Comments Hepatitis C Virus Screening 2001 HIV Screening 2014 HPV Vaccines (1 - 3-dose series) 2016 Microalbumin/Creatinine Rati o Urine 2019 DTaP/Tdap/Td Vaccines (1 - Tdap) 2020 Hepatitis B Vaccines (1 of 3 - 19+ 3-dose series) 2020 Pap Smear (Ages 21-65) 2022 Influenza Vaccine 12/12/2023 COVID-19 Vaccine ( - 2023-2 5 season) 2024 Hemoglobin A1C Discontinued 03/30/2023 Pneumococcal Vaccine: Pediat sobeida (0-5 Years) and At-Risk Patients (6 to 49 Years) Aged Out No longer eligible b ased on patient's age to complete this topic Procedures Procedure Name Priority Date/Time Associated Diagnosis Comments HEMOGLOBIN A1C WITH ESTIMATED AVERAGE GLUCOSE Routine 03/30/2023 4:02 AM EST from Last 3 Months or Most Recently Relevant to Health Maintenance Results * (ABNORMAL) Hemoglobin A1c with Estimated Average Glucose (03/30/2023 4:02 AM EST) Hemoglobin A1C 11.1(H) <5.7 % 03/30/2023 9:42 AM EST [facility] Comment: A1c% ? Interpretation 5.7 - 6.0 ?Increase risk of diabetes 6.1 - 6.4 ?Higher risk of diabetes > or = 6.5 ?? Consistent with diabetes Diabetes Care, 33(Supp 1):S1-S61, 2010 Estimated Average Glucose 272 mg/dL 03/30/2023 9:42 AM EST [facility] Blood specimen (specimen) Blood specimen / Unknown 03/30/2023 4:02 AM EST 03/30/2023 4:07 AM EST Chung French PA-C LAB BLOOD ORDER [facility] [address] [place] [address], [facility] [address] [place] [address] from Last 3 Months or Most Recently Relevant to Health Maintenance Advance Directives * Full Code (Latest Code Status on File) Date Activated Date Inactivated Comments 03/29/2023 4:28 AM Care Teams Summer Babysitter Relationship Specialty Start Date End Date Pcp, No [address] [place] [address] PCP - General 03/29/23
--- OUTSIDE RECORDS SUMMARY | 2024-07-02 13:45 | XMS_ITS | Encounter Summary ---
Author Organization [facility] Address [address] [place] [address] Phone Care Team Providers Care Floor Tech Name Role Phone Lyly Barroso MD Primary Care Provider Reason for Visit * Reason Comments Med Refill Encounter Details Date Type Department Care Team (Late st Contact Info) Description 10/04/2022 [facility]ill [facility] [address] [address] Roberta Barnhart MD Depression, unspecified depression type Social History Tobacco Use Types Packs/Day Years [...] encounter Miscellaneous Notes * Telephone Encounter - Torrie Sheikh NP - 10/05/2022 9:22 AM EDT Rx refused * Telephone Encounter - Rachael Scott CMA - 10/04/2022 5:56 PM EDT Refuse Inactive., aged out. 22 yrs old. Thanks documented in this encounter Plan of Treatment Not on file documented as of this encounter Visit Diagnoses Diagnosis Depression, unspecified depression type documented in this encounter Care Teams Floor Tech Relationship Specialty Start Date End Date Lyly Barroso MD [address] [facility] [place] [address] PCP - General Pediatrics 06/25/22 03/31/24 documented as of this encounter
--- OUTSIDE RECORDS SUMMARY | 2024-07-02 13:45 | XMS_ITS | Encounter Summary ---
Author Organization [facility] Address [address] [place] [address] Phone Care Team Providers Care Labor Contract Analyst Name Role Phone Lyly Barroso MD Primary Care Provider [phone] Reason for Visit * Reason Comments Med Refill Encounter Details Date Type Department Care Team (Late st Contact Info) Description 05/10/2021 [facility]ill [facility] [address] [address] Roberta Barnhart MD Oral contraception initiation Social History Tobacco Use [...] Telephone Encounter - Roberta Barnhart MD - 05/10/2021 12:35 PM EST Rx reviewed and ePrescribed * Telephone Encounter - Anaid Buckley LPN - 05/10/2021 11:36 AM EST Refill request from the pharmacy [facility]CP Last refill 08/31/20 Last [facility] 08/23/20 Send to the pharmacy on file documented in this encounter Plan of Treatment Not on file documented as of this encounter Visit Diagnoses Diagnosis Oral contraception initiation documented in this encounter Care Teams Labor Contract Analyst Relationship Specialty Start Date End Date Lyly Barroso MD [address] [place] [address] PCP - General Pediatrics 06/25/22 03/31/24 documented as of this encounter
--- OUTSIDE RECORDS SUMMARY | 2024-07-02 13:45 | XMS_ITS | Clinical Summary ---
Author Organization [facility] Address [address] [place] [phone] Phone Care Team Providers Care Addiction Therapist Name Role Phone Unavailable Primary Care Provider Unavailabl e Allergies No known active allergies Medications Insulin Lispro 100 UNIT/ML solution cartridge HUMALOG; Active Acti ve insulin glargine 100 UNIT/ML injection LANTUS; Active Activ e Continuous Blood Gluc Photoengraving Finisher (DEXCOM G6 HOUSE SUPERINTENDENT) device U UTD TO MONITOR BLOOD GLUCOSE 0 9 Active Continuous Blood Gluc Sensor (DEXCOM G6 SENSOR) misc 11 9 Active Continuous Blood Gluc Transmit (DEXCOM G6 TRANSMITTER) misc U UTD CHANGE EVERY 90 DAYS 5 9 Active GLUCAGON EMERGENCY 1 MG injection TYPE 1 DIABETES - ADMINISTER FOR BLOOD SUGAR LESS THAN 40 - DISPENSE 2 FOR HOME AND 1SCHOOL 11 9 Active ONETOUCH VERIO test strip TEST BG 7X'S/DAY FOR TYPE 1 DIABETES 11 9 Active HUMALOG KWIKPEN 100 UNIT/ML solution pen-injector INJECT UP TO 80 UNITS DAILY 5 9 Active BD PEN NEEDLE MARIA ISABEL U/F 32G X 4 MM misc USE 5 TIMES DAILY W/INSULIN 11 9 Active ONETOUCH DELICA LANCETS 33G misc TEST GLUCOSE 7 TIMES DAILY 11 9 Active albuterol HFA 108 (90 Base) MCG/ACT inhaler INHALE 2 PUFFS BY MOUTH EVERY 4 TO 6 HOURS NEEDED FOR COUGH 4 0 Active Baqsimi Two Pack 3 MG/DOSE powder USE 1 SPRAY INTO EACH NOSTRIL ONCE 0 Active ketoconazole 2 % shampoo APPLY TO SCALP AT LEAST 3 DAYS/WK, LET SIT FOR 5-10 MINUTES BEFORE WASHING OUT 2 Active fluocinolone 0.01 % external solution APPLY TO AREAS OF RASH ON SCALP DAILY UNTIL CLEAR 2 Active FLUoxetine 20 MG capsuleIndicatio ns:Depression, unspecified depression type Take 1 capsule (20 mg total) by mouth every morning. 90 capsule 2 Active Active Problems Problem Noted Date Diagnosed Date Depression 10/25/2021 Assessment & Plan (03/30/2022 2:49 PM EST): Continues to do well on current dose of fluoxetine.SHARON 7 score 8 and PHQ 9 score is 9. No changes made today. I will send refill for three months to aid with transition out of our practice. Call with any interval concerns. Assessment & Plan (02/15/2022 7:29 AM EDT): Doing very well since increase to 20 mg fluoxetine. Refill for 20 mg tab sent today. No new concerns, denies self harm. Encouraged to have one more med check prior to aging out of there practice on 04/17/22 Assessment & Plan (12/20/2021 2:56 PM EDT): Will increase to 20 mg QD fluoxetine. Jaz was instructed to double her current dose of 10mg and then call once she runs out for Rx of 20 mg tabs. Reviewed options for outreach if she feels things are not going well. Med check in 4-6 weeks Assessment & Plan (10/25/2021 9:57 PM EDT): History is concerning for depression. Both SHARON 7 and PHQ 9 scores elevated. Jaz is interested in starting SSRI. Reviewed side effects, expected length of onset of positive effects and office policy for refills. Med check in 4 weeks. No concerns for safety today. Psoriasis of scalp 10/25/2021 Assessment & Plan (10/25/2021 9:59 PM EDT): Exam consistent with psoriasis. Will treat with topical steroids. Advised getting on waitlist for dermatology appt Acquired left foot drop 08/30/2019 Assessment & Plan (08/24/2020 8:22 AM EDT): Followed by neurology- Much better, is stronger, has minor residual limp- does not need any supports for walking Assessment & Plan (08/08/2020 11:32 AM EDT): Left foot drop likely predisposed her to this injury. Her foot drop symptoms are improved, but not resolved. Completed a course of PT and has home exercises. Dr Lindquist in Neurology is following her for this. I wonder if she would benefit from a new AFO or other adaptive or stabilizing equipment. Would recommend seeing Orthopedics or PT to address this. Assessment & Plan (08/30/2019 7:47 AM EDT): Wearing supportive brace and ambulates with walker. Normal skin integrity at this time. Awaiting outpatient PT and specific recommendation for AFO Myasthenia gravis 08/30/2019 Overview (10/29/2019): 10/27/19: Pedi Neurology at [facility] ( telemedicine)- unclear if neurologic deficits can be entirely explained by myasthenia gravis: increase of Mestinon made, taper GBP f/u in 3 mo at which time will recheck labs and consider rpt EMG Assessment & Plan (08/24/2020 8:17 AM EDT): Followed by neurology at [facility]- is off gabapentin. Happy with dramatic improvements in eyelid function. Assessment & Plan (08/30/2019 7:52 AM EDT): Improving since discharge, follow up with Neurology in October Cardiomyopathy 08/28/2019 Overview (08/30/2019): Developed cardiogenic shock and myocarditis during prolonged complex hospitalization 06/08/19-08/07/19 initially triggered by influenza B infection Assessment & Plan (08/30/2019 7:54 AM EDT): No concerns at this time- was getting weekly EKGs at [facility] Attention-deficit hyperactiv ity disorder, predominantly inattentive type 02/14/2017 Assessment & Plan (08/24/2020 8:23 AM EDT): No issues- managing without medication. Finishing high school and planning to attend transitional program over summer, getting some college credits with pursuit of focusing on major in Physics BMI (body mass index), pedia tric, greater than or equal to 95% for age 1002/14/2017 Type 1 diabetes mellitus without complication Overview (04/11/2022): 02/12/20: Seen by Nephrology (Dr. Pako Naranjo)- virtual visit to evaluate for any kidney related issue with new diagnosis of diabetes. Labs and urine ordered at time of visit, f/u in 4/6 weeks 04/11/22: [facility] End[facility]- HA1C significantly elevated, diabetes not well managed, education provided, considering insulin pump Assessment & Plan (08/24/2020 8:20 AM EDT): Followed by Ped[facility] Endocrinology at [facility]- on insulin Assessment & Plan (08/30/2019 7:54 AM EDT): DKA on 06/08/19- admitted to [facility] PICU currently in good control- followed by Pedi Endocrinology Dysmenorrhea 02/14/2017 Overview (08/02/2021): 08/02/21: Kyleena IUD insertion Assessment & Plan (08/24/2020 8:17 AM EDT): Controlled with OCP- periods are regular, much less pain Nocturnal enuresis 02/14/2017 Assessment & Plan (08/24/2020 8:16 AM EDT): Longstanding issue- was told that her ADHD played a role. Jaz is interested in restarting medication that she used to be on ( was halted during her complex medical issues last year) - nephrology advised discussing this today. I would like her to meet with Urology - list of providers provided. Resolved Problems Problem Noted Date Diagnosed Date Resolved Date Hypoxemia 09/24/2019 08/24/2020 Overview (09/24/2019): 09/23/19: [facility] ([facility])- needs rpt sleep study- mom requesting to do at [facility], PFTs ( when clear to come back for inpatient visit) and given Rx for albuterol prn Influenza B 08/30/2019 08/24/2020 Overview (08/30/2019): Admission on June 08, 2019 to [facility] P[facility] Assessment & Plan (08/30/2019 7:51 AM EDT): Complex prolonged hospitalization from June 08, 2019 through 08/07/19 with rehabilitation at [facility] from 08/07/19 until 08/19/19 Anemia 02/14/2017 08/24/2020 Other developmental disorder s of scholastic skills 02/14/2017 08/24/2020 Immunizations Immunization Administration Dates Next Due DTaP 10/03/2006, 3,2001,08/18,2001 HPV Vaccine 9 Valent 12/21/2015 HPV, Quadrivalent 09/21/2014 Hep A, ped/adol 03/17/2019,02/14/2017 Hep B, ped/adol 01/29/2002,2001,2001 Hib (PRP-T) 07/17/2002, 2,2001,06/20 IPV 10/03/2006, 2,2001,06/20 Influenza, injectable, MDCK, preservative free, quadrivalent 04/21/2021 Influenza, injectable, quadrivalent 09/2016,03/19/2014,05/23/2012,04/02,02/06/2010 Influenza, injectable, quadr ivalent, preservative free 02/14/2022,03/07/2020,03/17/2019 MMR 06/19/2005,04/23/2002 Meningococcal Conj (Menactra) MCV4P 03/17/2019,0 06/25/2012 Pneumococcal Conjugate 01/13/2003,2001,2001,06/20 Pneumococcal Polysaccharide 05/11/2020 Tdap 06/25/2012 Varicella 10/03/2006,04/23/2002 Family History Medical History Relation Name Comments Heart attack Father Chung Other Maternal Grandfather MVA Heart failure Maternal Grandmother heena vasquez No Known Problems Mother Priscila Lung cancer Paternal Grandfather Breast cancer Paternal Grandmother REmiss ion Relation Name Status Comments Father Chung Alive healthy age: 52 Father's Brother Alive healthy X 1 Father's Sister Alive healthy X 2 Maternal Grandfather MVA Maternal Grandmother Alive healthy Mother Priscila Alive healthy age: 51 Other Alive Paternal Grandfather lung, s moker diagnosed with MALIGNANT NEOPLASM NOS Paternal Grandmother Alive breast cancer in remission diagnosed with MALIGNANT NEOPLASM NOS Sister 1 Alive Sister 2 Alive Social History Tobacco Use Types Packs/Day Years [...] Orientation Straight 08/23/2020 2: 16 PM EDT Last Filed Vital Signs Vital Sign Reading Time Taken Comments Blood Pressure 110/70 03/30/2022 2:29 PM EST Pulse - - Temperature 36.2 ??C (97.2 ??F) 08/28/2019 1:46 PM ED T Respiratory Rate - - Oxygen Saturation - - Inhaled Oxygen Concentration - - Weight 84.5 kg (186 lb 6 oz) 03/30/2022 2:29 PM EST Height 156.8 cm (5' 1.75 ) 02/14/2022 9:40 AM ED T Body Mass Index 34.37 02/14/2022 9:40 AM EDT Plan of Treatment Health Maintenance Due Date Last Done Comments Men B Vaccine (1 of 2 - Standard) 2017 DTaP,Tdap,and Td Vaccines (7 - Td or Tdap) 06/25/2022 06/25/2012, 10/03/2006, 07/17/2002, Additional history exists Influenza Vaccines (#1) 2023 02/15/20, 04/21/2021, 03/07/2020, Additional history exists COVID-19 Vaccine (4 - 2023-2 5 season) 2024 04/21/2021, 10/22/2020, 09/24/2020 Hepatitis B Vaccines Completed 01/29/2002, 2001, 2001 HIB Vaccines Completed 07/17/2002, 11/10, 2001, Additional history exists MMR Vaccines Completed 06/19/2005, 04/23/2002 IPV Vaccines Completed 10/03/2006, 01/11, 2001, Additional history exists Varicella Vaccines Completed 10/03/2006, 04/23/2002 HPV Vaccines Completed 12/21/2015, 09/21/2014 Hepatitis A Vaccines Completed 03/17/2019, 02/15/20 Meningococcal Vaccine Completed 03/17/2019, 013 Pneumococcal Vaccine Completed 05/11/2020, 01/13/2003, 2001, Additional history exists Procedures * Due to [place] [employer] law, this organization might not be sharing sensitive test results. Procedure Name Priority Date/Time Associated Diagnosis Comments CHLAMYDIA AND GONORRHEA, AMPLIFIED Routine 08/23/2020 2:27 PM EDT Encounter for screening examination for sexually transmitted disease from Last 3 Months or Most Recently Relevant to Health Maintenance Results * Due to [place] [employer] law, this organization might not be sharing sensitive test results. * Chlamydia and Gonorrhoea, Amplified (08/23/2020 2:27 PM EDT) Chlamydia Trachomatis, DNA Probe NEGATIVE (NEG) [facility] Comment: No Chlamydia Trachomatis RNA detected in this patient's sample ? (REFERENCE RANGE/NORMAL VALUE: NOT DETECTED) ? Note: This test uses heat reader- mediated amplification method to detect rRNA from C. Trachomatis URINE GC AMP PROBE NEGATIVE (NEG) [facility] Comment: No Neisseria Gonorrhoeae RNA detected in this patient's sample ? (REFERENCE RANGE/NORMAL VALUE: NOT DETECTED) ? NOTE: This test uses heat reader-mediated amplification method to detect rRNA from N.Gonorrhoeae. A negative result does not preclude infection. In the case of a negative urine result, testing of an endocervical(female) or urethral (male) specimen is recommended if there is high clinical suspicion of infection. Due to very high sensitivity of Nucleic Acid Amplification Test, false positive results may occur. Therefore, specimen handling is extremely important. In patients in whom the disease is unlikely, additional sample for testing should be considered after an initial positive result. The performance characteristics of this test have not been evaluated in children. The Aptima Combo2 assay is not intended for the evaluation of suspected sexual abuse or for other medico-legal indications. The ordering provider should assess if the patient had consensual sex without risk of sexual abuse. Consult the [facility] if needed. Contact phone number . Therapeutic failure or success cannot be determined with the Aptima Combo2 assay since nucleic acid may persist following appropriate antimicrobial therapy. The Centers for Disease Control and Prevention (CDC) recommends confirmatory retesting using culture or a different nucleic acid amplification test when positive results occur, if indicated. Testing performed or reported by [facility], a Service of [facility], [address] [place] [address] Thang De Los Santos MD, Ribbon Blocker Urine (Urine) 08/23/2020 2:2 7 PM EDT 08/23/2020 9:36 PM EDT us Roberta Barnhart MD LAB MICROBIOLOGY - GENERAL ORDER ALPHONSO Final Result [facility] from Last 3 Months or Most Recently Relevant to Health Maintenance Insurance [facility]
--- OUTSIDE RECORDS SUMMARY | 2024-07-02 13:45 | XMS_ITS | Encounter Summary ---
Author Organization [facility] Address [address] [place] [address] Phone Care Team Providers Care Dredge Pump Operator Name Role Phone Lyly Barroso MD Primary Care Provider [phone] Encounter Details Date Type Department Care Team (Late st Contact Info) Description 09/29/2017 Conversion Encounter [facility] [address] [place] [address] Yamileth Ray MD [address] [place] [address] Social History Tobacco Use Types Packs/Day Years Used Date Smoking Tobacco: Never Assessed Comments Unknown Sex and Gender Information Value Date Recorded Sex Assigned at Female 08/23/2020 2:16 PM EDT Legal Sex Female 6:09 PM EDT Gender Identity Female 08/23/2020 2:16 PM EDT Sexual Orientation Straight 08/23/2020 2: 16 PM EDT documented as of this encounter Plan of Treatment Not on file documented as of this encounter Visit Diagnoses Not on filedocumented in this encounter Care Teams Dredge Pump Operator Relationship Specialty Start Date End Date Lyly Barroso MD [address] [place] [address] PCP - General Pediatrics 06/25/22 03/31/24 documented as of this encounter
== END 2024-07-02 15:52 | disposition home or self-care (01) ==
PROVIDERS: PCP Nurse Practitioner Family; Visit Provider Advanced Practice Midwife
DX: Z01.419 Encounter for gynecological examination (general) (routine) without abnormal findings (principal); R21 Rash and other nonspecific skin eruption
CPT/HCPCS: 99212; 99395; 99459

== ENCOUNTER 2024-07-02 12:51 | Outpatient (REF) | payer OTHER, SELFPAY ==
--- OUTSIDE RECORDS SUMMARY | 2024-07-02 14:39 | XMS_ITS | Encounter Summary ---
Author Organization [facility] Address [address] [place] [address] Phone Care Team Providers Care Chisel Grinder Name Role Phone Lyly Barroso MD Primary Care Provider [phone] Encounter Details Date Type Department Care Team (Late st Contact Info) Description 09/29/2017 Conversion Encounter [facility] [address] [place] [address] Yamileth Ray MD [address] [place] [address] Social History Tobacco Use Types Packs/Day Years [...] on filedocumented in this encounter Care Teams Chisel Grinder Relationship Specialty Start Date End Date Lyly Barroso MD [address] [place] [address] PCP - General Pediatrics 06/25/22 03/31/24 documented as of this encounter
--- OUTSIDE RECORDS SUMMARY | 2024-07-02 14:39 | XMS_ITS | Encounter Summary ---
Author Organization [facility] Address [address] [place] [address] Phone Care Team Providers Care Home Health Clinician Name Role Phone Lyly Barroso MD Primary Care Provider [phone] Reason for Visit * Reason Comments Med Refill Encounter Details Date Type Department Care Team (Late st Contact Info) Description 08/31/2020 [facility]ill [facility] [address], [place] [id number] Torrie Sheikh NP [address] [place] [address] Oral contraception initiation Social History Tobacco Use [...] encounter Miscellaneous Notes * Telephone Encounter - Roberat Barnhart MD - 08/31/2020 8:33 AM EDT Rx reviewed and ePrescribed * Telephone Encounter - Adelaide Cowart MA - 08/31/2020 8:13 AM EDT Refill request for Larissia Last [facility] was 08/23/20 Please review documented in this encounter Plan of Treatment Not on file documented as of this encounter Visit Diagnoses Diagnosis Oral contraception initiation documented in this encounter Care Teams Home Health Clinician Relationship Specialty Start Date End Date Lyly Barroso MD [address] [facility] [place] [address] PCP - General Pediatrics 06/25/22 03/31/24 documented as of this encounter
--- OUTSIDE RECORDS SUMMARY | 2024-07-02 14:39 | XMS_ITS | Clinical Summary ---
Author Organization [facility] Address [address] [place] [address] Care Team Providers Care Fish Hatchery Inspector Name Role Phone Pcp, No Primary Care Provider Unavailabl e Allergies No known active allergies Medications Medication Sig Dispensed Refills Start Date End Date Status Continuous Blood Gluc Sensor (Dexcom G6 Sensor) [facility] USE TO MONITOR BLOOD SUGARS 03/28/2023 Active Insulin Disposable Pump (Omnipod 5 G6 Pod, Gen 5,) [facility] 03/28/2023 Active HumaLOG 100 UNIT/ML injection USE SUBCUTANEOUSLY VIA INSULIN PUMP. MAX DAILY DOSE 100 UNITS. 03/26/2023 Active Insulin Disposable Pump (Omnipod 5 G6 Intro, Gen 5,) Kit 01/08/2023 Active fluocinonide (LIDEX) 0.05 % external solution APPLY TWICE DAILY TO THE SCALP FOR 2 WEEKS ON, THEN TAKE 1 WEEK OFF. REPEAT NEEDED. 02/20/2023 Active Continuous Blood Gluc Transmit (Dexcom G6 Transmitter) [facility] 03/29/2023 Active insulin glargine (LANtus/SEMGLEE) 100 units/mL [...] 11.1(H) <5.7 % 03/30/2023 9:[address] [facility] Comment: A1c% ? Interpretation 5.7 - 6.0 ?Increase risk of diabetes 6.1 - 6.4 ?Higher risk of diabetes > or = 6.5 ?? Consistent with diabetes Diabetes Care, 33(Supp 1):S1-S61, 2010 Estimated Average Glucose 272 mg/dL 03/30/2023 9:[address] [facility] Blood specimen (specimen) Blood specimen / Unknown 03/30/2023 4:02 AM EST 03/30/2023 4:07 AM EST Chung French PA-C LAB BLOOD ORDER ALPHONSO [facility] [address] [place] [address], [facility] [address] [place] [address] from Last 3 Months or Most Recently Relevant to Health Maintenance Advance Directives * Full Code (Latest Code Status on File) Date Activated Date Inactivated Comments 03/29/2023 4:28 AM Care Teams Fish Hatchery Inspector Relationship Specialty Start Date End Date Pcp, No [address] [place] [address] PCP - General 03/29/23
--- OUTSIDE RECORDS SUMMARY | 2024-07-02 14:39 | XMS_ITS | Encounter Summary ---
Author Organization [facility] Address [address] [place] [address] Phone Care Team Providers Care Head Host/Hostess Name Role Phone Lyly Barroso MD Primary Care Provider [phone] Reason for Visit * Reason Comments Med Refill Encounter Details Date Type Department Care Team (Late st Contact Info) Description 10/04/2022 [facility]ill [facility] [address] [address] Roberta Barnhart MD Depression, unspecified depression type [...] type documented in this encounter Care Teams Head Host/Hostess Relationship Specialty Start Date End Date Lyly Barroso MD [address] [facility] [place] [address] PCP - General Pediatrics 06/25/22 03/31/24 documented as of this encounter
--- OUTSIDE RECORDS SUMMARY | 2024-07-02 14:39 | XMS_ITS | Clinical Summary ---
Author Organization [facility] Address [address] [place] [address] Care Team Providers Care Form Maker Plaster Name Role Phone Unavailable Primary Care Provider [...] topic RSV Immunization Patients Un maria del cramen 20 months Aged Out No longer eligible b ased on patient's age to complete this topic Varicella Vaccines Aged Out No longer eligible based on patient's age to complete this topic Advance Directives Documents on File Type Date Recorded Patient Director Zone Expl anation Health Care Decision (hx) 08/21/2019 AD PATINO DIRECTIVE Health Care Decision (hx) 08/10/2019 AD PATINO DIRECTIVE
--- OUTSIDE RECORDS SUMMARY | 2024-07-02 14:39 | XMS_ITS | Encounter Summary ---
Author Organization [facility] Address [address] [place] [address] Phone Care Team Providers Care Senior Web Developer Name Role Phone Llyy Barroso MD Primary Care Provider [phone] Reason for Visit * Reason Comments Med Refill Encounter Details Date Type Department Care Team (Late st Contact Info) Description 05/10/2021 [facility]ill [facility] [address] [address] Roberta Barnhart MD Oral contraception initiation Social [...] initiation documented in this encounter Care Teams Senior Web Developer Relationship Specialty Start Date End Date Lyly Barroso MD [address] [place] [address] PCP - General Pediatrics 06/25/22 03/31/24 documented as of this encounter
--- OUTSIDE RECORDS SUMMARY | 2024-07-02 14:39 | XMS_ITS | Clinical Summary ---
Author Organization [facility] Address [address] [place] [address] Phone Care Team Providers Care Yoga Instructor Name Role Phone Unavailable Primary Care Provider Unavailabl e Allergies No known active allergies Medications Insulin Lispro 100 UNIT/ML solution cartridge HUMALOG; Active Acti ve insulin glargine 100 UNIT/ML injection LANTUS; Active Activ e Continuous Blood Gluc Wood Casket Assembler (DEXCOM G6 EMAIL MANAGER) device U UTD TO MONITOR BLOOD GLUCOSE [...] 08/30/2019 Overview (10/29/2019): 10/27/19: Pedi Neurology at [facility] ( telemedicine)- unclear if neurologic deficits can be entirely explained by myasthenia gravis: increase of Mestinon made, taper GBP f/u in 3 mo at which time will recheck labs and consider rpt EMG Assessment & Plan (08/24/2020 8:17 AM EDT): Followed by neurology at [facility]- is off gabapentin. Happy with dramatic improvements in eyelid function. Assessment & Plan (08/30/2019 7:52 AM EDT): Improving since discharge, follow up with Neurology in October Cardiomyopathy 08/28/2019 Overview (08/30/2019): Developed cardiogenic shock and myocarditis during prolonged complex hospitalization 06/08/19-08/07/19 initially triggered by influenza B infection Assessment & Plan (08/30/2019 7:54 AM EDT): No concerns at this time- was getting weekly EKGs at [facility] Attention-deficit hyperactiv ity disorder, predominantly inattentive type [...] AM EDT): [place] [facility] Assessment & Plan (08/30/2019 7:54 AM EDT): DKA on 06/08/19- admitted to [facility] currently in good control- followed by [...] 08/24/2020 Overview (09/24/2019): 09/23/19: [facility] ([facility])- needs rpt sleep study- mom requesting to do at [facility], PFTs ( when clear to come back for inpatient visit) and given Rx for albuterol prn Influenza B 08/30/2019 08/24/2020 Overview (08/30/2019): Admission on June 08, 2019 to [facility] Assessment & Plan (08/30/2019 7:51 AM EDT): Complex prolonged hospitalization from June 08, 2019 through 08/07/19 with rehabilitation at [facility] from 08/07/19 until 08/19/19 Anemia 02/14/2017 08/24/2020 [...] Additional history exists Procedures * Due to [place] [employer] law, this organization might not be sharing sensitive test results. Procedure Name Priority Date/Time Associated Diagnosis Comments CHLAMYDIA AND GONORRHEA, AMPLIFIED Routine 08/23/2020 2:27 PM EDT Encounter for screening examination for sexually transmitted disease from Last 3 Months or Most Recently Relevant to Health Maintenance Results * Due to [place] [employer] law, this organization might not be sharing sensitive test results. * Chlamydia and Gonorrhoea, Amplified (08/23/2020 2:27 PM EDT) Chlamydia Trachomatis, DNA Probe NEGATIVE (NEG) [facility] Comment: No Chlamydia Trachomatis RNA detected in this patient's sample ? (REFERENCE RANGE/NORMAL VALUE: NOT DETECTED) ? Note: This test uses entry level truck driver- mediated amplification method to detect rRNA from C. Trachomatis URINE GC AMP PROBE NEGATIVE (NEG) [facility] Comment: No Neisseria Gonorrhoeae RNA detected in this patient's sample ? (REFERENCE RANGE/NORMAL VALUE: NOT DETECTED) ? NOTE: This test uses entry level truck driver-mediated amplification method to detect rRNA from N.Gonorrhoeae. [...] without risk of sexual abuse. Consult the [facility] if needed. Contact phone number . Therapeutic failure or success cannot be determined with the Aptima Combo2 assay since nucleic acid may persist following appropriate antimicrobial therapy. The Centers for Disease Control and Prevention (CDC) recommends confirmatory retesting using culture or a different nucleic acid amplification test when positive results occur, if indicated. Testing performed or reported by [facility], a Service of [facility], [address] [place] [address] Thang De Los Santos MD, Regulatory Affairs Spec Urine (Urine) 08/23/2020 2:2 7 PM EDT 08/23/2020 9:36 PM EDT us Roberta Barnhart MD LAB MICROBIOLOGY - GENERAL ORDER ALPHONSO Final Result [facility] from Last 3 Months or Most Recently Relevant to Health Maintenance Insurance [facility]
[2024-07-03 04:42] LABS: CT PCR NOT DETECTED (Not Detect.); NG PCR NOT DETECTED (Not Detect.)
[2024-07-03 13:24] LABS: Bacterial Vaginosis PCR NEGATIVE (Negative); Candida Group PCR DETECTED (Not Detect); Candida glab krusei PCR NOT DETECTED (Not Detect); Trichomonas vaginalis PCR NOT DETECTED (Not Detect)
== END 2024-07-02 12:52 | disposition home or self-care (01) ==
LOC: HO.LNP 12:51
PROVIDERS: PCP Nurse Practitioner Family; Visit Provider Advanced Practice Midwife
DX: Z01.419 Encounter for gynecological examination (general) (routine) without abnormal findings (principal); R21 Rash and other nonspecific skin eruption
CPT/HCPCS: 81515; 87491; 87591; 88175

== ENCOUNTER 2024-07-29 10:10 | Outpatient (AMB) | payer OTHER, SELFPAY ==
--- NOTE | 2024-07-29 10:11 | MHC.OFFVIS ---
Intake Visit Reasons: discharge ok per aimee Medicaid Business Analyst: Medicaid Business Analyst Present (Aimee) Allergies No Known Allergies Allergy (Verified 07/29/24 10:13) HPI Comments Details: Patient is here today with concerns: treated for yeast in June, reported her symptoms had resolved with the use of topical an intravaginal cream. History of DM she reports her blood sugars have been stable. She noticed green discharge his week. No odor, urinary symptoms or pelvic pain. Currently using antifungal cream for vulvar fungus symptoms. Recently intimate, no current partner. FOR[facility]LY [facility], [facility] Medical History Emphysematous cystitis Diabetic coma Migraine with aura Diabetes mellitus Kidney failure Surgical History History of cataract removal with insertion of prosthetic lens H/O right heart catheterization Family History Sister Depression Anxiety Bipolar 1 disorder Mother Alcohol abuse Father Alcohol abuse Other Substance abuse Social History Housing: House Alcohol intake: never Patient Tobacco Use Status: Never used Tobacco e-Cigarette/Vaping Use: Never Used service: No Current occupational status: unemployed Sexual orientation: Straight/Heterosexual Gender identity: Female Cognitive needs: No Hearing needs: No Vision needs: Yes Female Reproductive History Menstrual Age of Menarche: 13 control method: progestin IUCD Review of Systems Const All systems reviewed & are unremarkable except as noted in HPI and below Physical Exam Const General: cooperative, healthy appearing and no acute distress Orientation/consciousness: patient oriented x3 GI Inspection: Yes normal to inspection Palpation (GI): Soft to palpation and Other GI palpation findings present (Nontender) Rectal Exam - Female: visual inspection normal Other: Vulvar erythema, medication increases of groins bilaterally. General: Yes bladder normal to palpation External Female Exam: normal appearance of the urethra Speculum Exam - Vagina: normal appearance of the vagina, normal palpation, normal vaginal discharge and abnormal vaginal discharge (Clumpy yellow green discharge) Speculum Exam - Cervix: normal appearance of the cervix, normal palpation and Other cervical findings present (IUD strings at the os) Bimanual exam- vagina & uterus: normal bimanual exam, normal palpation, uterine size normal, bladder normal to palpation, normal palpation, uterine shape normal and non-tender Bimanual Exam- Adnexa, other: normal adnexae Neuro General: patient oriented x3 Assessment & Plan Assessment & Plan (1) Candidiasis of vulva and vagina: Code(s): B37.31 - Acute candidiasis of vulva and vagina Plan Discussed: Encouraged good glucose control, skin care, use of medication, role of probiotics. BV panel and GC chlamydia obtained. Await results for any final plan of care. Rx for topical in intravaginal medications. Advised use of condoms if becomes sexually active. The patient expressed understanding and agreement with the plan of care. All of her questions and concerns were addressed to the best of my ability. Schedule annual exam. This note is constructed using voice recognition software. While every effort has been made to ensure accuracy, animal assistant errors may have been included. Orders: Orders CT NG by PCR Today N89.8 - Other specified noninflammatory disorders of vagina Bacterial Vaginosis Panel Today N89.8 - Other specified noninflammatory disorders of vagina Medications: New clotrimazole-betamethasone 1-0.05 % 1 appl topical BID 7 days 45 grams 1RF fungal rash terconazole 0.4% 1 appful vaginal BEDTIME 7 days 45 grams 0RF Coding Level of Care Code Est Pt Level 3 (95070) Diagnoses Candidiasis of vulva and vagina B37.31
--- OUTSIDE RECORDS SUMMARY | 2024-07-29 11:46 | XMS_ITS | Encounter Summary ---
Author Organization [facility] Address [address] [place] [address] Phone Care Team Providers Care Spice Room Worker Name Role Phone Lyly Barroso MD Primary Care Provider [phone] Reason for Visit * Reason Comments Med Refill Encounter Details Date Type Department Care Team (Late st Contact Info) Description 10/04/2022 [facility]ill [facility] [address] [address] Roberta Barnhart MD Depression, unspecified depression type [...] type documented in this encounter Care Teams Spice Room Worker Relationship Specialty Start Date End Date Lyly Barroso MD [address] [facility] [place] [address] PCP - General Pediatrics 06/25/22 03/31/24 documented as of this encounter
--- OUTSIDE RECORDS SUMMARY | 2024-07-29 11:46 | XMS_ITS | Clinical Summary ---
Author Organization [facility] Address [address] [place] [address] Care Team Providers Care Computer Networking Instructor Adjunct Name Role Phone Unavailable Primary Care Provider [...] Documents on File Type Date Recorded Patient Morning Show Newscast Producer Expl anation Health Care Decision (hx) 08/21/2019 AD PATINO DIRECTIVE Health Care Decision (hx) 08/10/2019 AD PATINO DIRECTIVE
--- OUTSIDE RECORDS SUMMARY | 2024-07-29 11:46 | XMS_ITS | Clinical Summary ---
Author Organization [facility] Address [address] [place] [address] Phone Care Team Providers Care Wood [place] Neck Whipper Name Role Phone Unavailable Primary Care Provider Unavailabl e Allergies No known active allergies Medications Insulin Lispro 100 UNIT/ML solution cartridge HUMALOG; Active Acti ve insulin glargine 100 UNIT/ML injection LANTUS; Active Activ e Continuous Blood Gluc Biodiesel Production Associate (DEXCOM G6 CALL OR CONTACT CENTRE OPERATOR) device U UTD TO MONITOR BLOOD GLUCOSE [...] 08/30/2019 Overview (10/29/2019): 10/27/19: Pedi Neurology at [facility] ( telemedicine)- unclear if neurologic deficits can be entirely explained by myasthenia gravis: increase of Mestinon made, taper GBP f/u in 3 mo at which time will recheck labs and consider rpt EMG Assessment & Plan (08/24/2020 8:17 AM EDT): Followed by neurology at [facility]- is off gabapentin. Happy with dramatic improvements in eyelid function. Assessment & Plan (08/30/2019 7:52 AM EDT): Improving since discharge, follow up with Neurology in October Cardiomyopathy 08/28/2019 Overview (08/30/2019): Developed cardiogenic shock and myocarditis during prolonged complex hospitalization 06/08/19-08/07/19 initially triggered by influenza B infection Assessment & Plan (08/30/2019 7:54 AM EDT): No concerns at this time- was getting weekly EKGs at [facility] Attention-deficit hyperactiv ity disorder, predominantly inattentive type [...] AM EDT): Followed by Pedi Endocrinology at [facility]- on insulin Assessment & Plan (08/30/2019 7:54 AM EDT): DKA on 06/08/19- admitted to [facility] PICU currently in good control- followed [...] 08/24/2020 Overview (09/24/2019): 09/23/19: [facility] ([facility])- needs rpt sleep study- mom requesting to do at [facility], PFTs ( when clear to come back for inpatient visit) and given Rx for albuterol prn Influenza B 08/30/2019 08/24/2020 Overview (08/30/2019): Admission on June 08, 2019 to [facility] Assessment & Plan (08/30/2019 7:51 AM EDT): Complex prolonged hospitalization from June 08, 2019 through 08/07/19 with rehabilitation at [facility] from 08/07/19 until 08/19/19 Anemia 02/14/2017 08/24/2020 [...] Additional history exists Procedures * Due to [employer] law, this organization might not be sharing sensitive test results. Procedure Name Priority Date/Time Associated Diagnosis Comments CHLAMYDIA AND GONORRHEA, AMPLIFIED Routine 08/23/2020 2:27 PM EDT Encounter for screening examination for sexually transmitted disease from Last 3 Months or Most Recently Relevant to Health Maintenance Results * Due to [place] [employer] law, this organization might not be sharing sensitive test results. * Chlamydia and Gonorrhoea, Amplified (08/23/2020 2:27 PM EDT) Chlamydia Trachomatis, DNA Probe NEGATIVE (NEG) [facility] Comment: No Chlamydia Trachomatis RNA detected in this patient's sample ? (REFERENCE RANGE/NORMAL VALUE: NOT DETECTED) ? Note: This test uses metrology specialist- mediated amplification method to detect rRNA from C. Trachomatis URINE GC AMP PROBE NEGATIVE (NEG) [facility] Comment: No Neisseria Gonorrhoeae RNA detected in this patient's sample ? (REFERENCE RANGE/NORMAL VALUE: NOT DETECTED) ? NOTE: This test uses metrology specialist-mediated amplification method to detect rRNA from N.Gonorrhoeae. [...] without risk of sexual abuse. Consult the [facility] if needed. Contact phone number . Therapeutic failure or success cannot be determined with the Aptima Combo2 assay since nucleic acid may persist following appropriate antimicrobial therapy. The Centers for Disease Control and Prevention (CDC) recommends confirmatory retesting using culture or a different nucleic acid amplification test when positive results occur, if indicated. Testing performed or reported by [facility], a Service of [facility], [address] [place] [address] Thang De Los Santos MD, Capsule Inspector Urine (Urine) 08/23/2020 2:2 7 PM EDT 08/23/2020 9:36 PM EDT us Roberta Barnhart MD LAB MICROBIOLOGY - GENERAL ORDER ALPHONSO Final Result [facility] from Last 3 Months or Most Recently Relevant to Health Maintenance Insurance [facility]
--- OUTSIDE RECORDS SUMMARY | 2024-07-29 11:46 | XMS_ITS | Encounter Summary ---
Author Organization [facility] Address [address] [place] [address] Phone Care Team Providers Care Checker Name Role Phone Lyly Barroso MD Primary Care Provider [phone] Encounter Details Date Type Department Care Team (Late st Contact Info) Description 09/29/2017 Conversion Encounter [facility] [address] [place] [address] Yamileth Ray MD [address] [place] [address] Social History Tobacco Use Types Packs/Day Years [...] on filedocumented in this encounter Care Teams Checker Relationship Specialty Start Date End Date Lyly Barroso MD [address] [place] [address] PCP - General Pediatrics 06/25/22 03/31/24 documented as of this encounter
--- OUTSIDE RECORDS SUMMARY | 2024-07-29 11:47 | XMS_ITS | Clinical Summary ---
Author Organization [facility] Address [address] [place] [address] Care Team Providers Care Manager Concrete Name Role Phone Pcp, No Primary Care Provider Unavailabl e Allergies No known active allergies Medications Medication Sig Dispensed Refills Start Date End Date Status Continuous Blood Gluc Sensor (Dexcom G6 Sensor) [facility] USE TO MONITOR BLOOD SUGARS 03/28/2023 Active Insulin Disposable Pump (Omnipod 5 G6 Pod, Gen 5,) [facility] 03/28/2023 Active HumaLOG 100 UNIT/ML injection USE SUBCUTANEOUSLY VIA INSULIN PUMP. MAX DAILY DOSE 100 UNITS. 03/26/2023 Active Insulin Disposable Pump (Omnipod 5 G6 Intro, Gen 5,) Kit 01/08/2023 Active fluocinonide (LIDEX) 0.05 % external solution APPLY TWICE DAILY TO THE SCALP FOR 2 WEEKS ON, THEN TAKE 1 WEEK OFF. REPEAT NEEDED. 02/20/2023 Active Continuous Blood Gluc Transmit (Dexcom G6 Transmitter) [facility] 03/29/2023 Active insulin glargine (LANtus/SEMGLEE) 100 [...] 11.1(H) <5.7 % 03/30/2023 9:42 AM EST [facility] Comment: A1c% ? Interpretation 5.7 - 6.0 ?Increase risk of diabetes 6.1 - 6.4 ?Higher risk of diabetes > or = 6.5 ?? Consistent with diabetes Diabetes Care, 33(Supp 1):S1-S61, 2010 Estimated Average Glucose 272 mg/dL 03/30/2023 9:42 AM EST [facility] Blood specimen (specimen) Blood specimen / Unknown 03/30/2023 4:02 AM EST 03/30/2023 4:07 AM EST Chung French PA-C LAB BLOOD ORDER ALPHONSO [facility] [address] [place] [address], [facility] [address] [place] [address] from Last 3 Months or Most Recently Relevant to Health Maintenance Advance Directives * Full Code (Latest Code Status on File) Date Activated Date Inactivated Comments 03/29/2023 4:28 AM Care Teams Manager Concrete Relationship Specialty Start Date End Date Pcp, No [address] [place] [address] PCP - General 03/29/23
--- OUTSIDE RECORDS SUMMARY | 2024-07-29 11:47 | XMS_ITS | Clinical Summary ---
Author Organization [facility], Address [address] [place] [address] [place] [address] Phone Care Team Providers Care Credit Card Clerk Name Role Phone Unavailable Primary Care Provider Unavailabl e Family History Relation Status Comments Mother Alive Social History Tobacco Use Types Packs/Day Years Used Date Smoking Tobacco: Never Alcohol Use Standard Drinks/Week Comments No 0 (1 standard drink = 0.6 oz pur e alcohol) Comments Unknown Sex and Gender Information Value Date Recorded Sex Assigned at Not on file Legal Sex Female 4:57 PM EST Gender Identity Not on file Sexual Orientation Not on file Plan of Treatment Health Maintenance Due Date Last Done Comments Pneumococcal Vaccine: Pediat rics (0 to 5 Years) and At-Risk Patients (6 to 64 Years) (1 of 2 - PCV) 2007 Hepatitis B Vaccine (1 of 3 - 19+ 3-dose series) 04/17 Diabetes: Hemoglobin A1C 06/13/2020 Diabetes: Ophthalmology Exam 06/13/2020 Diabetes: Pedal Pulse Checked 06/13/2020 Diabetes: Sensory Foot Exam 06/13/2020 Diabetes: Visual Foot Exam 06/13/2020 Influenza Vaccine (#1) 2024 Insurance COMPREHENSIVE BENEFITS COMPREHENSIVE BENEFITS
--- OUTSIDE RECORDS SUMMARY | 2024-07-29 11:47 | XMS_ITS | Encounter Summary ---
Author Organization [facility] Address [address] [place] [address] Phone Care Team Providers Care Laundry Housekeeper Name Role Phone Lyly Barroso MD Primary Care Provider [phone] Reason for Visit * Reason Comments Med Refill Encounter Details Date Type Department Care Team (Late st Contact Info) Description 05/10/2021 [facility]ill [facility] [address] [address] Roberta Barnhart MD Oral contraception initiation Social [...] initiation documented in this encounter Care Teams Laundry Housekeeper Relationship Specialty Start Date End Date Lyly Barroso MD [address] [facility] [place] [address] PCP - General Pediatrics 06/25/22 03/31/24 documented as of this encounter
--- OUTSIDE RECORDS SUMMARY | 2024-07-29 11:47 | XMS_ITS ---
Author Name [facility] Unknown Encounters Encounter Type Encounter Reason Primary Diagnosis Location Date Inpatient Type 1 diabetes mellitus with ketoacidosis without coma Type 1 diabetes mellitus with ketoacidosis without coma [facility] 03/29/2023 Care Team Organization Name Specialty Phone Email Start Date End Da te [facility] 06/02/2023 [facility] NO PCP Primary Care 03/29/2023 03/29/2023 [facility] 03/29/2023
--- OUTSIDE RECORDS SUMMARY | 2024-07-29 11:47 | XMS_ITS | Encounter Summary ---
Author Organization [facility] Address [address] [place] [address] Phone Care Team Providers Care Professor Of Counseling Name Role Phone Lyly Barroso MD Primary Care Provider [phone] Reason for Visit * Reason Comments Med Refill Encounter Details Date Type Department Care Team (Late st Contact Info) Description 08/31/2020 Refill [facility] [address] [place], [place] [id number] Torrie Sheikh NP [address] [place] [address] Oral contraception initiation Social History Tobacco Use [...] AM EDT Refill request for Larissia Last [facility] was 08/23/20 Please review documented in this encounter Plan of Treatment Not on file documented as of this encounter Visit Diagnoses Diagnosis Oral contraception initiation documented in this encounter Care Teams Professor Of Counseling Relationship Specialty Start Date End Date Lyly Barroso MD [address] [facility] [place] [address] PCP - General Pediatrics 06/25/22 03/31/24 documented as of this encounter
== END 2024-07-29 15:30 | disposition home or self-care (01) ==
LOC: HO.HWS 10:10
PROVIDERS: PCP Nurse Practitioner Family; Visit Provider Advanced Practice Midwife
DX: B37.31 Acute candidiasis of vulva and vagina (principal)
CPT/HCPCS: 99213

== ENCOUNTER 2024-07-29 10:10 | Outpatient (REF) | payer OTHER, SELFPAY | END 2024-07-29 10:11 | disposition home or self-care (01) | LOC: HO.LNP 10:10 | PROVIDERS: PCP Nurse Practitioner Family; Visit Provider Advanced Practice Midwife | DX: Z13.89 Encounter for screening for other disorder (principal) ==

== ENCOUNTER 2024-07-29 10:38 | Outpatient (REF) | payer OTHER, SELFPAY ==
[2024-07-29 17:19] LABS: Bacterial Vaginosis PCR NEGATIVE (Negative); Candida Group PCR DETECTED (Not Detect); Candida glab krusei PCR NOT DETECTED (Not Detect); Trichomonas vaginalis PCR NOT DETECTED (Not Detect)
[2024-07-29 17:51] LABS: CT PCR NOT DETECTED (Not Detect.); NG PCR NOT DETECTED (Not Detect.)
== END 2024-07-29 10:39 | disposition home or self-care (01) ==
LOC: HO.LAB 10:38
PROVIDERS: Visit Provider Advanced Practice Midwife
DX: N89.8 Other specified noninflammatory disorders of vagina (principal)
CPT/HCPCS: 81515; 87491; 87591

== ENCOUNTER 2024-09-09 14:51 | Outpatient (AMB) | payer OTHER, SELFPAY ==
--- NOTE | 2024-09-09 12:59 | A.OFFVIS_ITS ---
Vital Signs 09/09/24 15:00 Height 5 ft 2 in Weight 213 lb 13.574 oz BMI 39.1 BP 116/78 Blood Pressure Location Rt brachial Position Sitting Pulse 101 H Pulse Source Pulse Oximeter Pulse Oximetry (%) 99 Oxygen Delivery Method Room Air Intake Visit Reasons: T1DM Intake Note: NEW Patient presents today to establish treatment for Type 1 Diabetes Mellitus: Last Diabetic eye exam was on: a year ago, had eye surgery Last Podiatry exam was on: Patient does not see a Registration Specialist Most recent HbA1c: 11.3%, 09/09/2024, last A1c 9.6% drawn on 01/27/2024 Random Glucose- 427 mg/dL, Today UR Ketone Dip 15 Customer Service Advocate Required: No Accompanied by: Mother Allergies No Known Allergies Allergy (Verified 09/09/24 15:34) HPI Comments Details: [age] YO female who is seen in consultation for T1DM. She has been followed by pediatric endo at [facility] and is on an Omnipod pump. Initially diagnosed with T1dm at age [age] years old Was initially started on treatment with: started on insulin injections started on a pump one year ago Omnipod G6 Pre pump A1C's 12%, postpump 9% done last fall The patient's glucose was elevated in clinic with ketones 15. She reports she does not feel poorly and she is often with high sugars. Pump down load shows no carb entry for meals she is in manual mode 71% of the time TDD 26.8 basal 68% 18.1 bolus 32% 8.7 average glucose 242 sensor 32% ofthe time very high 48%, high 19%, target 32%, low 1%, very low 0% Pump settings Active insulin time 02:00 hours Minimum BG for bolus calc 70 Basal rates 12:00AM to 12:00PM 0.05 Correction factor 1:50 BG correction threshold 110 Insulin to carb ratio 1:5 Treats lows with juice box. caries juice or skittles with her Family history of T1dm .great maternal aunt with type 1 No retinopathy: eyes checked yearly, last eye exam 1 year ago, surgery 2 years ago cataract will schedule f/u Denies neuropathy: has foot drop Had kidney failure in 2019 related to sepsis was on HD for a short time Has HLD, not on statin Denies CAD. She was hospitalized in 2019 with septic shock diabetic coma, ATN. She was seen at vascular at [facility] after this time due to footdrop. Diet: Can count carbs pump report shows no entries Weigtt: weight stable diabetes education: has been to dm education [facility] Medical History Emphysematous cystitis Diabetic coma Migraine with aura Diabetes mellitus Kidney failure Surgical History History of cataract removal with insertion of prosthetic lens H/O right heart catheterization Family History Sister Depression Anxiety Bipolar 1 disorder Mother Alcohol abuse Father Alcohol abuse Other Substance abuse Social History Housing: House Alcohol intake: never Patient Tobacco Use Status: Never used Tobacco e-Cigarette/Vaping Use: Never Used service: No Current occupational status: unemployed Sexual orientation: Straight/Heterosexual Gender identity: Female Cognitive needs: No Hearing needs: No Vision needs: Yes Female Reproductive History Menstrual Age of Menarche: 13 Physical Exam Vital Signs: Last Vital Signs Pulse 101 H 09/09/24 15:00 BP 116/78 09/09/24 15:00 Pulse Ox 99 09/09/24 15:00 Oxygen Delivery Method Room Air 09/09/24 15:00 BMI result Body Mass Index 39.1 Absence of Cushingoid features. Absence of acromegalic features. Neck exam reveals nl size thyroid about 15 gms. No thyroid nodules palpable. No carotid bruits present. Lungs CTA. Heart S1 S2, Reg R/R. No M/R/ G. Skin exam reveals absence of vitiligo or acanthosis nigricans. Abdominal exam reveals Soft NT/ND with NA BS. No organomegaly present. Const Other: Absence of Cushingoid features. Absence of acromegalic features. Neck exam reveals nl size thyroid about 15 gms. No thyroid nodules palpable. Heart S1 S2, Reg R/R. No M/R G. Skin exam reveals absence of vitiligo or acanthosis nigricans. Visual exam of foot performed. No ulcerations or open lesions. No inter digit maceration or fissuring. No onychomycosis, no callouses. Sensation intact to monofilament exam. Vibratory sensation is normal with 128 Hz tuning fork. pulse positive Neck Other: . Extrem Other: Visual exam of foot performed. No ulcerations or open lesions. No onchomycosis, no callouses.Pulses 2 + distally Sensation intact to monofilament exam. Vibratory sensation sensed is intact with 128 Hz tuning fork Results AMB Hemoglobin A1c AMB Hemoglobin A1c 11.3 % Last Edit by ABIEL Lopez on 09/09/24 15:1 8 UR Ketone Dip UR Ketone Dip 15 Last Edit by ABIEL Lopez on 09/09/24 15:33 Results Reviewed Results Reviewed: Laboratory Last Values Glucose (Clinic) 427 mg/dL (60-115) H* 09/09/24 15:06 Hgb A1c (Clinic) 11.3 % (4.0-6.0) H 09/09/24 15:15 Ur Ketones (Stick) 15 09/09/24 15:15 Assessment & Plan Assessment & Plan (1) Type 1 diabetes: Code(s): E10.9 - Type 1 diabetes mellitus without complications Category: Medical Plan: This is a 24-year-old type 1 diabetic on an Omnipod pump with a history of poor compliance. A1cs pre pump were in the 12% range. Today she is 11.5%. Unable to make setting changes today because patient has entered no carbohydrates for this 2 week. She has agreed to consistently enter carbohydrates for correction. Elevated glucose with 15 ketone. I recommended ambulance transport to hospital. Both patient and mother declined because she is often this high at home. She had taken her pump off at 12 noon today and did not put it back on. She gave herself a correction injection a 14 units right before she came in the clinic. Because of this we were unable to give her an insulin injection and against medical advice chose to go home. She did agree to go home on immediately put on her pump and use the correction feature for high glucose. If her glucose numbers did not come down with the an a few hours she agreed to go to an emergency room. Patient appears motivated to change behavior. I recommended that she immediately start entering her carbs and we will ask susan ent to keep pump in auto mode. She will come back within the week for pump setting changes with the music educator and she will also see the mobile health vehicle operator. Orders: Orders AMB Ketone Urine Dipstick 09/09/24 E10.9 - Type 1 diabetes mellitus without complications Comprehensive Met. Panel Today E10.9 - Type 1 diabetes mellitus without complications Thyroid Stimulating Hormone Today E10.9 - Type 1 diabetes mellitus without complications Free T4 (Free Thyroxine) Today E10.9 - Type 1 diabetes mellitus without complications AMB Hemoglobin A1c 09/09/24 E10.9 - Type 1 diabetes mellitus without complications Lipid Panel Today E10.9 - Type 1 diabetes mellitus without complications Microalbumin, Random (w Creat) Today E10.9 - Type 1 diabetes mellitus without complications Creatinine Urine Today E10.9 - Type 1 diabetes mellitus without complications Referrals Medicare Contact Specialist Nutrition Referral E10.9 - Type 1 diabetes mellitus without complications Diabetes Education Referral E10.9 - Type 1 diabetes mellitus without com plications Medications: New Lantus Solostar U-100 Insulin (insulin glargine) 18 units (0.18 mL) subcut DAILY 30 days PRN 6 mL 3RF pump failure MDD 18 units NS Humalog U-100 Insulin (insulin lispro) up to 70 units daily via pump subcutaneously use as directed; 30 days 30 mL 6RF MDD 70 units NS acetone (urine) test (Ketone Urine Test strips) prn glucose over 250, nausea, vomiting, illness 25 ea 3RF lancets (Microlet Lancet) As q 4 hours to confirm sensor reading/use when sensor not avail 100 ea 11RF Dexcom G6 Sensor (blood-glucose sensor) As directed every 10 days 3 ea 11RF NS E10.9 - Type 1 diabetes mellitus without complications Dexcom G6 Transmitter (blood-glucose transmitter) As every 3 months for use with dexcom sensor 1 ea 4RF NS E10.9 - Type 1 diabetes mellitus without complications Baqsimi 3 mg/actuation (glucagon) may repeat in 15 minutes 3 mg intranasal ONCE 30 days PRN 2 ea 1RF severe hypoglycemia MDD 6mg NS E10.9 - Type 1 diabetes mellitus without complications Omnipod 5 G6-G7 Pods (Gen 5) (insulin pump cart,auto,BT,G6/7) As directed every 3 days 10 ea 11RF NS blood-glucose meter (Contour Next Meter) As directed for use to confirm sensor readings/lack of sensor 1 ea 1RF Contour Next Test Strips (blood sugar diagnostic) As directed 100 ea 3RF NS E10.9 - Type 1 diabetes mellitus without complications Patient Instructions: The patient was counseled to achieve a target A1C of 7% (154 avg). Fasting blood sugars should be 90-130 in the morning and less than 180 two hours after meals. Reviewed the relationship between poor diabetic control and the development of complications. Take 15 carb carbohydrate grams to treat a low sugar (3-4 glucose tablets, half a glass of juice or 15 carbohydrate grams of soft candy such as gummie snacks). Recheck your sugar in 15 minutes and re-treat again with 15 carbohydrate grams if low or still with symptoms. Do not drive a car or operate machinery if you do not know what your blood sugar is, if it is low or in excess of 300. Coding Diagnoses Type 1 diabetes E10.9
[2024-09-09 15:00] VITALS: BP 116/78; PULSE 101; O2SAT 99; BMI 39.1
[2024-09-09 15:11] LABS: Glucose, Whole Blood 427 mg/dL (60-115)
--- OUTSIDE RECORDS SUMMARY | 2024-09-09 15:59 | XMS_ITS | Clinical Summary ---
Author Organization [facility], Address [address] [place] [address] [place] [address] Phone Care Team Providers Care Automobile Mechanic Helper Name Role Phone Unavailable Primary Care Provider [...] Maintenance Due Date Last Done Comments Hepatitis B Vaccine (1 of 3 - 19+ 3-dose series) 04/17 Pneumococcal Vaccine: Peds ( 0 to 5 Years) and At-Risk Patients (6 to 49 Years) (1 of 2 - PCV) 2020 Diabetes: Hemoglobin A1C 06/13/2020 Diabetes: Ophthalmology Exam 06/13/2020 Diabetes: Pedal Pulse Checked 06/13/2020 Diabetes: Sensory Foot Exam 06/13/2020 Diabetes: Visual Foot Exam 06/13/2020 Influenza Vaccine (Season Ended) 2025 Insurance Comprehensive Benefits Comprehensive Benefits
--- OUTSIDE RECORDS SUMMARY | 2024-09-09 15:59 | XMS_ITS | Clinical Summary ---
Author Organization [facility] Address [address] [place] [phone] Phone Care Team Providers Care Racing Manager Name Role Phone Unavailable Primary Care Provider Unavailabl e Allergies No known active allergies Medications Insulin Lispro 100 UNIT/ML solution cartridge HUMALOG; Active Acti ve insulin glargine 100 UNIT/ML injection LANTUS; Active Activ e Continuous Blood Gluc Care Management Assistant (DEXCOM G6 MACHINE SPRING FORMER) device U UTD TO MONITOR BLOOD GLUCOSE [...] 08/30/2019 Overview (10/29/2019): 10/27/19: Pedi Neurology at [facility] ( telemedicine)- unclear if neurologic deficits can be entirely explained by myasthenia gravis: increase of Mestinon made, taper GBP f/u in 3 mo at which time will recheck labs and consider rpt EMG Assessment & Plan (08/24/2020 8:17 AM EDT): Followed by neurology at [facility]- is off gabapentin. Happy with dramatic improvements in eyelid function. Assessment & Plan (08/30/2019 7:52 AM EDT): Improving since discharge, follow up with Neurology in October Cardiomyopathy 08/28/2019 Overview (08/30/2019): Developed cardiogenic shock and myocarditis during prolonged complex hospitalization 06/08/19-08/07/19 initially triggered by influenza B infection Assessment & Plan (08/30/2019 7:54 AM EDT): No concerns at this time- was getting weekly EKGs at [facility] Attention-deficit hyperactiv ity disorder, predominantly inattentive type [...] AM EDT): [place] [facility] Assessment & Plan (08/30/2019 7:54 AM EDT): DKA on 06/08/19- admitted to [facility] currently in good control- followed by Pedi Endocrinology Dysmenorrhea 02/14/2017 Overview (08/02/2021): 08/02/21: Kyleena IUD insertion Assessment & Plan (08/24/2020 8:17 AM EDT): Controlled with OCP- periods are regular, much less pain Nocturnal enuresis 02/14/2017 Assessment & Plan (08/24/2020 8:16 AM EDT): Longstanding issue- was told that her ADHD played a role. aJz is interested in restarting medication that she used to be on ( was halted during her complex medical issues last year) - nephrology advised discussing this today. I would like her to meet with Urology - list of providers provided. Resolved Problems Problem Noted Date Diagnosed Date Resolved Date Hypoxemia 09/24/2019 08/24/2020 Overview (09/24/2019): 09/23/19: [facility] ([facility])- needs rpt sleep study- mom requesting to do at [facility], PFTs ( when clear to come back for inpatient visit) and given Rx for albuterol prn Influenza B 08/30/2019 08/24/2020 Overview (08/30/2019): Admission on June 08, 2019 to [facility] Assessment & Plan (08/30/2019 7:51 AM EDT): Complex prolonged hospitalization from June 08, 2019 through 08/07/19 with rehabilitation at [facility] from 08/07/19 until 08/19/19 Anemia 02/14/2017 08/24/2020 [...] Additional history exists Procedures * Due to [place] Really Simple law, this organization might not be sharing sensitive test results. Procedure Name Priority Date/Time Associated Diagnosis Comments CHLAMYDIA AND GONORRHEA, AMPLIFIED Routine 08/23/2020 2:27 PM EDT Encounter for screening examination for sexually transmitted disease from Last 3 Months or Most Recently Relevant to Health Maintenance Results * Due to [place] Really Simple law, this organization might not be sharing sensitive test results. * Chlamydia and Gonorrhoea, Amplified (08/23/2020 2:27 PM EDT) Chlamydia Trachomatis, DNA Probe NEGATIVE (NEG) [facility] Comment: No Chlamydia Trachomatis RNA detected in this patient's sample ? (REFERENCE RANGE/NORMAL VALUE: NOT DETECTED) ? Note: This test uses signal tower operator- mediated amplification method to detect rRNA from C. Trachomatis URINE GC AMP PROBE NEGATIVE (NEG) [facility] Comment: No Neisseria Gonorrhoeae RNA detected in this patient's sample ? (REFERENCE RANGE/NORMAL VALUE: NOT DETECTED) ? NOTE: This test uses signal tower operator-mediated amplification method to detect rRNA from N.Gonorrhoeae. [...] without risk of sexual abuse. Consult the [facility] if needed. Contact phone number . Therapeutic failure or success cannot be determined with the Aptima Combo2 assay since nucleic acid may persist following appropriate antimicrobial therapy. The Centers for Disease Control and Prevention (CDC) recommends confirmatory retesting using culture or a different nucleic acid amplification test when positive results occur, if indicated. Testing performed or reported by [facility], a Service of [facility], [address] [place] [address] Thang De Los Santos MD, Server Assistant Urine (Urine) 08/23/2020 2:2 7 PM EDT 08/23/2020 9:36 PM EDT us Roberta Barnhart MD LAB MICROBIOLOGY - GENERAL ORDER ALPHONSO Final Result [facility] from Last 3 Months or Most Recently Relevant to Health Maintenance Insurance [facility]
--- OUTSIDE RECORDS SUMMARY | 2024-09-09 15:59 | XMS_ITS | Clinical Summary ---
Author Organization [facility] Address [address] [place] [address] Phone Care Team Providers Care Founder And Chief Technical Officer Name Role Phone Tere Plascencia Primary Care Provider Unavail able Tere Plascencia Unavailable Unavailable Social History Tobacco Use Types Packs/Day Years Used Date Smoking Tobacco: Never Assessed Comments Unknown Sex and Gender Information Value Date Recorded Sex Assigned at Not on file Legal Sex Female 3:01 AM EDT Gender Identity Not on file Sexual Orientation Not on file Plan of Treatment Not on file Care Teams Founder And Chief Technical Officer Relationship Specialty Start Date End Date Tere Plascencia PCP - General 06/21/19 Tere Plascencia PCP - Clinical PCP 06/21/19
--- OUTSIDE RECORDS SUMMARY | 2024-09-09 15:59 | XMS_ITS | Clinical Summary ---
Author Organization [facility] Address [address] [place] [address] Care Team Providers Care President Ceo & Founder Name Role Phone Pcp, No Primary Care Provider Unavailabl e Allergies No known active allergies Medications Continuous Blood Gluc Sensor (Dexcom G6 Sensor) [facility] USE TO MONITOR BLOOD SUGARS 03/28/20 Active Insulin Disposable Pump ([facility]ip[facility] 5 G6 Pod, Gen 5,) [facility] Active HumaLOG 100 UNIT/ML injection USE SUBCUTANEOUSLY VIA INSULIN PUMP. MAX DAILY DOSE 100 UNITS. 03/26/20 Active Insulin Disposable Pump (Omnipod 5 G6 Intro, Gen 5,) Kit 01/09/20 Active fluocinonide (LIDEX) 0.05 % external solution APPLY TWICE DAILY TO THE SCALP FOR 2 WEEKS ON, THEN TAKE 1 WEEK OFF. REPEAT NEEDED. 02/21/20 Active Continuous Blood Gluc Transmit (Dexcom G6 Transmitter) [facility] 03/29/20 Active insulin glargine (LANtus/SEMGLEE) 100 units/mL injectionIndicat ions:Diabetic ketoacidosis without coma associated with type 1 diabetes mellitus (HCC) Inject 0.3 mL (30 Units total) under the skin 2 (two) times a day. 10 mL 03/31/20 23 Active Insulin Lispro (HumaLOG KWIKPEN) 200 UNIT/ML CONCENTRATED prefilled pen injectionIndicat ions:Diabetic ketoacidosis without coma associated with type 1 diabetes mellitus (HCC) Inject 7 Units under the skin 3 (three) times a day before meals. 6 mL 03/31/20 23 Active Insulin Pen Needle 31G X 5 MM MiscIndications: Diabetic ketoacidosis without coma associated with type 1 diabetes mellitus (HCC) Waylon Haji 50 pen needle 03/31/20 Active Active Problems Problem Noted Date Diagnosed [...] more drinks on one occasion? Never 03/29/2023 Comments Unknown Sex and Gender Information Value Date Recorded Sex Assigned at Not on file Legal Sex Female 1:27 AM EST Gender Identity Not on file Sexual [...] 21-65) 2022 Influenza Vaccine 12/12/2023 COVID-19 Vaccine (1 - 2023-2 5 season) 2024 Hemoglobin A1C [...] 11.1(H) <5.7 % 03/30/2023 9:42 AM EST [facility] Comment: A1c% ? Interpretation 5.7 - 6.0 ?Increase risk of diabetes 6.1 - 6.4 ?Higher risk of diabetes > or = 6.5 ?? Consistent with diabetes Diabetes Care, 33(Supp 1):S1-S61, 2010 Estimated Average Glucose 272 mg/dL 03/30/2023 9:42 AM EST [facility] Blood specimen (specimen) Blood specimen / Unknown 03/30/2023 4:02 AM EST 03/30/2023 4:07 AM EST Chung French PA-C LAB BLOOD ORDERABLES Fi nal Result [address] [address], [address] [address] from Last 3 Months or Most Recently Relevant to Health Maintenance Insurance [facility] OUT OF STATE - PPO MEDICAID OUT OF STATE [facility] Advance Directives * Full Code (Latest Code Status on File) Date Activated Date Inactivated Comments 03/29/2023 4:28 AM Care Teams President Ceo & Founder Relationship Specialty Start Date End Date Pcp, Shruthi [address] [place] [address] PCP - General 03/29/23
--- OUTSIDE RECORDS SUMMARY | 2024-09-09 15:59 | XMS_ITS | Encounter Summary ---
Author Organization [facility] Address [address] [place] [address] Phone Care Team Providers Care Oliving Machine Operator Name Role Phone Lyly Barroso MD Primary Care Provider [phone] Reason for Visit * Reason Comments Med Refill Encounter Details Date Type Department Care Team (Late st Contact Info) Description 08/31/2020 Refill [facility] [address], [place] [id number] Torrie Sheikh NP [address] [place] [address] Oral contraception initiation Social History Tobacco Use [...] AM EDT Refill request for Larissia Last [facility] was 08/23/20 Please review documented in this encounter Plan of Treatment Not on file documented as of this encounter Visit Diagnoses Diagnosis Oral contraception initiation documented in this encounter Care Teams Oliving Machine Operator Relationship Specialty Start Date End Date Lyly Barroso MD [address] [facility] [place] [address] PCP - General Pediatrics 06/25/22 03/31/24 documented as of this encounter
--- OUTSIDE RECORDS SUMMARY | 2024-09-09 15:59 | XMS_ITS | Encounter Summary ---
Author Organization [facility] Address [address] [place] [address] Phone Care Team Providers Care It Desktop Support Specialist Name Role Phone Lyly Barroso MD Primary Care Provider [phone] Reason for Visit * Reason Comments Med Refill Encounter Details Date Type Department Care Team (Late st Contact Info) Description 10/04/2022 [facility]ill [facility] [address] [address] Roberta Barnhart MD Depression, unspecified depression type [...] type documented in this encounter Care Teams It Desktop Support Specialist Relationship Specialty Start Date End Date Lyly Barroso MD [address] [facility] [place] [address] PCP - General Pediatrics 06/25/22 03/31/24 documented as of this encounter
--- OUTSIDE RECORDS SUMMARY | 2024-09-09 15:59 | XMS_ITS | Clinical Summary ---
Author Organization [facility] Address [address] [place] [address] Care Team Providers Care Administration Assistant Name Role Phone Unavailable Primary Care Provider [...] (1 - 3-dose series) 2016 Meningococcal B Vaccine (1 o f 2 - Standard) 2017 DTaP,Tdap,and Td Vaccines (1 - Tdap) 2020 Hepatitis B Vaccines (1 of 3 - 19+ 3-dose series) 2020 Cervical Cancer Screening: P ap Smear 2022 COVID-19 Vaccine ( - 2023-2 5 season) 2024 Influenza Vaccine (Season Ended) 2025 HIB Vaccines Aged Out No longer eligi [...] Documents on File Type Date Recorded Patient Plant Engineering Manager Expl anation Health Care Decision (hx) 08/21/2019 AD PATINO DIRECTIVE Health Care Decision (hx) 08/10/2019 AD PATINO DIRECTIVE
--- OUTSIDE RECORDS SUMMARY | 2024-09-09 15:59 | XMS_ITS | Clinical Summary ---
Author Organization [facility] lin Address [address] [facility] [place] [address] Care Team Providers Care Call Center Support Representative Name Role Phone No, Pcp FIELD REVIEWER Primary Care Provider Unavailabl e Social History Tobacco Use Types Packs/Day Years Used Date Smoking Tobacco: Never Assessed Comments Unknown Sex and Gender Information Value Date Recorded Sex Assigned at Not on file Legal Sex Female 11:42 AM EDT Gender Identity Not on file Sexual Orientation Not on file Plan of Treatment Health Maintenance Due Date Last Done Comments Depression: Screening Annually using PHQ-2/9 in Adults 18 yrs or above (or HM Modifier)([facility]) 2001 Hepatitis C Virus Infection in Adolescents and Adults: Screening (or Modifier) ([facility]) 2019 SDOH Screening Reminder: Annually for all adults ([facility]) 2019 Tobacco Smoking Cessation: i n Adults excluding Women: Behavioral and Pharmacotherapy Interventions ([facility]) 2019 Lipid Screening: Once for Women aged 20 to 45 yrs ([facility]) 2021 Cervical Cancer Screenin-65 yrs of age (or Modifier) 2022 Cervical Cancer Screening: Pap every 3 yrs pts age 21-65 2022 Cervical Cancer: Pap Screening with Modifier timing ([facility]) 2022 Cervical Cancer: hrHPV alone or with cotesting Pap for Pts 30-65yrs screening every 5yrs ([facility]) 2022 DTaP/Tdap/Td Vaccines ([facility]) (7 - Td or Tdap) 06/25/2022 06/25/2012, 10/03/2006, 07/17/2002, Additional history exists COVID-19 Vaccine Screening: Initial Series and Booster Status ([facility]) (2023- season) 2024 Flu Vaccination: Yearly for ages 18mos through 64 years (or Modifier)([facility]) 12/11/2024 04/21/2021 Zoster/Shingles Vaccine Series Screening: Adults aged 18+ yrs (or HM Modifiers)([facility]) (1 of 2) 2051 10/03/2006, 04/23/2002 Pneumococcal Vaccination Screening: Pts 0-19 & 19-49 yrs of age ([facility]) Aged Out 05/11/2020, 01/13/2003, 2001, Additional history exists No longer eligible based on patient's age to complete this topic Medical Devices Not on file Insurance [facility] Care Teams Call Center Support Representative Relationship Specialty Start Date End Date No, Pcp, FIELD REVIEWER N/A Do not use PCP - General Family Medicine 03/11/20
--- OUTSIDE RECORDS SUMMARY | 2024-09-09 15:59 | XMS_ITS | Encounter Summary ---
Author Organization [facility] Address [address] [place] [address] Phone Care Team Providers Care Site Operations Manager Name Role Phone Lyly Barroso MD Primary Care Provider [phone] Reason for Visit * Reason Comments Med Refill Encounter Details Date Type Department Care Team (Late st Contact Info) Description 05/10/2021 [facility]ill [facility] [address] [address] Roberta Barnhart MD Oral contraception initiation Social [...] initiation documented in this encounter Care Teams Site Operations Manager Relationship Specialty Start Date End Date Lyly Barroso MD [address] [place] [address] PCP - General Pediatrics 06/25/22 03/31/24 documented as of this encounter
--- OUTSIDE RECORDS SUMMARY | 2024-09-09 15:59 | XMS_ITS | Encounter Summary ---
Author Organization [facility] Address [address] [place] [address] Phone Care Team Providers Care Track Rider Name Role Phone Lyly Barroso MD Primary Care Provider [phone] Encounter Details Date Type Department Care Team (Late st Contact Info) Description 09/29/2017 Conversion Encounter [facility] [address] [place] [address] Yamileth Ray MD [address] [place] [address] Social History Tobacco Use Types Packs/Day Years [...] on filedocumented in this encounter Care Teams Track Rider Relationship Specialty Start Date End Date Lyly Barroso MD [address] [place] [address] PCP - General Pediatrics 06/25/22 03/31/24 documented as of this encounter
== END 2024-09-09 15:56 | disposition home or self-care (01) ==
LOC: HO.ENCR 14:51
PROVIDERS: PCP Nurse Practitioner Family; Visit Provider Nurse Practitioner Adult Health
DX: E10.9 Type 1 diabetes mellitus without complications (principal)

== ENCOUNTER → 2024-09-09 14:51 | Outpatient (BNVA) | payer OTHER, SELFPAY | PROVIDERS: PCP Nurse Practitioner Family; Visit Provider Nurse Practitioner Adult Health | DX: E10.9 Type 1 diabetes mellitus without complications (principal); Z96.41 Presence of insulin pump (external) (internal) | CPT/HCPCS: 81002; 82947; 83036 ==

== ENCOUNTER 2024-09-14 07:51 | Outpatient (AMB) | payer OTHER, SELFPAY ==
--- OUTSIDE RECORDS SUMMARY | 2024-09-14 07:55 | XMS_ITS | Clinical Summary ---
Author Organization [facility] ity Address [address] [place] [address] Care Team Providers Care Belly Dancer Name Role Phone Unavailable Primary Care Provider [...] Documents on File Type Date Recorded Patient Patent Examiner Expl anation Health Care Decision (hx) 08/21/2019 AD PATINO DIRECTIVE Health Care Decision (hx) 08/10/2019 AD PATINO DIRECTIVE
--- OUTSIDE RECORDS SUMMARY | 2024-09-14 07:55 | XMS_ITS | Clinical Summary ---
Author Organization [facility], Address [address] [place] [address] [place] [address] Phone Care Team Providers Care Pharmacy Specialist Name Role Phone Unavailable Primary Care Provider [...]
--- OUTSIDE RECORDS SUMMARY | 2024-09-14 07:55 | XMS_ITS | Encounter Summary ---
Author Organization [facility] Address [address] [place] [address] Phone Care Team Providers Care Wood Coater Name Role Phone Lyly Barroso MD Primary Care Provider [phone] Reason for Visit * Reason Comments Med Refill Encounter Details Date Type Department Care Team (Late st Contact Info) Description 10/04/2022 [facility]ill [facility] [address] [address] Roberta Barnhart MD Depression, unspecified depression type [...] type documented in this encounter Care Teams Wood Coater Relationship Specialty Start Date End Date Lyly Barroso MD 7 [facility] [place] [address] PCP - General Pediatrics 06/25/22 03/31/24 documented as of this encounter
--- OUTSIDE RECORDS SUMMARY | 2024-09-14 07:55 | XMS_ITS | Clinical Summary ---
Author Organization [facility] Address [address] [place] [phone] Phone Care Team Providers Care Supervisor Brine Name Role Phone Unavailable Primary Care Provider Unavailabl e Allergies No known active allergies Medications Insulin Lispro 100 UNIT/ML solution cartridge HUMALOG; Active Acti ve insulin glargine 100 UNIT/ML injection LANTUS; Active Activ e Continuous Blood Gluc Judge (DEXCOM G6 LINING MARKER) device U UTD TO MONITOR BLOOD GLUCOSE [...] 08/30/2019 Overview (10/29/2019): 10/27/19: Pedi Neurology at [facility] ( telemedicine)- unclear if neurologic deficits can be entirely explained by myasthenia gravis: increase of Mestinon made, taper GBP f/u in 3 mo at which time will recheck labs and consider rpt EMG Assessment & Plan (08/24/2020 8:17 AM EDT): Followed by neurology at [facility]- is off gabapentin. Happy with [...] this time- was getting weekly EKGs at [place] Attention-deficit hyperactiv ity disorder, predominantly inattentive type [...] AM EDT): Followed by Ped[facility]ology at [facility]- on insulin Assessment & Plan (08/30/2019 7:54 AM EDT): DKA on 06/08/19- admitted to [facility] currently in good control- followed by [...] 08/24/2020 Overview (09/24/2019): 09/23/19: [facility] ([facility])- needs rpt sleep study- mom requesting to do at [facility], PFTs ( when clear to come back for inpatient visit) and given Rx for albuterol prn Influenza B 08/30/2019 08/24/2020 Overview (08/30/2019): Admission on June 08, 2019 to [facility] Assessment & Plan (08/30/2019 7:51 AM EDT): Complex prolonged hospitalization from June 08, 2019 through 08/07/19 with rehabilitation at [place] from 08/07/19 until 08/19/19 Anemia 02/14/2017 08/24/2020 [...] Additional history exists Procedures * Due to [place] [employer] law, this organization might not be sharing sensitive test results. Procedure Name Priority Date/Time Associated Diagnosis Comments CHLAMYDIA AND GONORRHEA, AMPLIFIED Routine 08/23/2020 2:27 PM EDT Encounter for screening examination for sexually transmitted disease from Last 3 Months or Most Recently Relevant to Health Maintenance Results * Due to [place] [employer] law, this organization might not be sharing sensitive test results. * Chlamydia and Gonorrhoea, Amplified (08/23/2020 2:27 PM EDT) Chlamydia Trachomatis, DNA Probe NEGATIVE (NEG) [facility] Comment: No Chlamydia Trachomatis RNA detected in this patient's sample ? (REFERENCE RANGE/NORMAL VALUE: NOT DETECTED) ? Note: This test uses delivery agent- mediated amplification method to detect rRNA from C. Trachomatis URINE GC AMP PROBE NEGATIVE (NEG) [facility] Comment: No Neisseria Gonorrhoeae RNA detected in this patient's sample ? (REFERENCE RANGE/NORMAL VALUE: NOT DETECTED) ? NOTE: This test uses delivery agent-mediated amplification method to detect rRNA from N.Gonorrhoeae. [...] without risk of sexual abuse. Consult the [facility] if needed. Contact phone number . Therapeutic failure or success cannot be determined with the Aptima Combo2 assay since nucleic acid may persist following appropriate antimicrobial therapy. The Centers for Disease Control and Prevention (CDC) recommends confirmatory retesting using culture or a different nucleic acid amplification test when positive results occur, if indicated. Testing performed or reported by [facility], a Service of [facility], [address] [place] [address] Thang De Los Santos MD, Airport Operations Manager Urine (Urine) 08/23/2020 2:2 7 PM EDT 08/23/2020 9:36 PM EDT us Roberta Barnhart MD LAB MICROBIOLOGY - GENERAL ORDER ALPHONSO Final Result [facility] from Last 3 Months or Most Recently Relevant to Health Maintenance Insurance [facility]
--- OUTSIDE RECORDS SUMMARY | 2024-09-14 07:55 | XMS_ITS | Clinical Summary ---
Author Organization [facility] Address [address] [place] [address] Phone Care Team Providers Care Inspector Balance Wheel Motion Name Role Phone Tere Plascencia Primary Care [...] of Treatment Not on file Care Teams Inspector Balance Wheel Motion Relationship Specialty Start Date End Date Tere Plascencia PCP - General 06/21/19 Tere Plascencia PCP - Clinical PCP 06/21/19
--- OUTSIDE RECORDS SUMMARY | 2024-09-14 07:55 | XMS_ITS | Encounter Summary ---
Author Organization [facility] Address [address] [place] [address] Phone Care Team Providers Care Weir Fisherman Name Role Phone Lyly Barroso MD Primary Care Provider [phone] Reason for Visit * Reason Comments Med Refill Encounter Details Date Type Department Care Team (Late st Contact Info) Description 08/31/2020 [facility] [facility] [address] [place], [place] [id number] Torrie Sheikh NP [address] [place] [address] Oral contraception initiation Social History Tobacco Use [...] AM EDT Refill request for Larissia Last [facility] was 08/23/20 Please review documented in this encounter Plan of Treatment Not on file documented as of this encounter Visit Diagnoses Diagnosis Oral contraception initiation documented in this encounter Care Teams Weir Fisherman Relationship Specialty Start Date End Date Lyly Barroso MD [address] [facility] [place] [address] PCP - General Pediatrics 06/25/22 03/31/24 documented as of this encounter
--- OUTSIDE RECORDS SUMMARY | 2024-09-14 07:55 | XMS_ITS | Encounter Summary ---
Author Organization [facility] Address [address] [place] [address] Phone Care Team Providers Care Pitch Filler Name Role Phone Lyly Barroso MD Primary Care Provider [phone] Reason for Visit * Reason Comments Med Refill Encounter Details Date Type Department Care Team (Late st Contact Info) Description 05/10/2021 [facility]ill [facility] [address] [address] Roberta Barnhart MD Oral contraception initiation Social [...] initiation documented in this encounter Care Teams Pitch Filler Relationship Specialty Start Date End Date Lyly Barroso MD 7 [place] [address] PCP - General Pediatrics 06/25/22 03/31/24 documented as of this encounter
--- OUTSIDE RECORDS SUMMARY | 2024-09-14 07:55 | XMS_ITS | Clinical Summary ---
Author Organization [facility] Address [address] [place] [address] Care Team Providers Care Top Dyeing Machine Loader Name Role Phone Pcp, No Primary Care Provider Unavailabl e Allergies No known active allergies Medications Continuous Blood Gluc Sensor (Dexcom G6 Sensor) [facility] USE TO MONITOR BLOOD SUGARS 03/28/20 Active Insulin Disposable Pump (Omnipod 5 G6 Pod, Gen 5,) [facility] 03/28/20 Active HumaLOG 100 UNIT/ML injection USE SUBCUTANEOUSLY VIA INSULIN PUMP. MAX DAILY DOSE 100 UNITS. 03/26/20 Active Insulin Disposable Pump (Omnipod 5 G6 Intro, Gen 5,) Kit 01/09/20 Active fluocinonide (LIDEX) 0.05 % external solution APPLY TWICE DAILY TO THE SCALP FOR 2 WEEKS ON, THEN TAKE 1 WEEK OFF. REPEAT NEEDED. 02/21/20 Active Continuous Blood Gluc Transmit (Dexcom G6 Transmitter) [facility] 03/29/20 Active insulin glargine (LANtus/SEMGLEE) 100 units/mL [...] 11.1(H) <5.7 % 03/30/2023 9:42 AM EST [facility] Comment: A1c% ? Interpretation 5.7 - 6.0 ?Increase risk of diabetes 6.1 - 6.4 ?Higher risk of diabetes > or = 6.5 ?? Consistent with diabetes Diabetes Care, 33(Supp 1):S1-S61, 2010 Estimated Average Glucose 272 mg/dL 03/30/2023 9:42 AM EST [facility] Blood specimen (specimen) Blood specimen / Unknown 03/30/2023 4:02 AM EST 03/30/2023 4:07 AM EST Chung French PA-C LAB BLOOD ORDERABLES Fi nal Result [address] [address], [address] [address] from Last 3 Months or Most Recently Relevant to Health Maintenance Insurance [facility] OUT OF STATE - PPO MEDICAID OUT OF STATE [facility] [place] Advance Directives * Full Code (Latest Code Status on File) Date Activated Date Inactivated Comments 03/29/2023 4:28 AM Care Teams Top Dyeing Machine Loader Relationship Specialty Start Date End Date Pcp, Shruthi [address] [place] [address] PCP - General 03/29/23
--- OUTSIDE RECORDS SUMMARY | 2024-09-14 07:55 | XMS_ITS | Encounter Summary ---
Author Organization [facility] Address [address] [place] [address] Phone Care Team Providers Care Elevator Tender Name Role Phone Lyly Barroso MD Primary Care Provider [phone] Encounter Details Date Type Department Care Team (Late st Contact Info) Description 09/29/2017 Conversion Encounter [facility] [address] [place] [address] Yamileth Ray MD [address] [place] [address] Social History Tobacco Use Types Packs/Day Years [...] on filedocumented in this encounter Care Teams Elevator Tender Relationship Specialty Start Date End Date Lyly Barroso MD [address] [place] [address] PCP - General Pediatrics 06/25/22 03/31/24 documented as of this encounter
--- OUTSIDE RECORDS SUMMARY | 2024-09-14 07:55 | XMS_ITS | Clinical Summary ---
Author Organization [facility] lin Address [address] [facility] [place] [address] Care Team Providers Care Mud Analysis Supervisor Name Role Phone No, Pcp FACTORY MACHINE COMPUTER OPERATOR Primary Care Provider Unavailabl e Social History [...] Adults 18 yrs or above (or HM Modifier)([facility]) 2019 Hepatitis C Virus Infection in Adolescents and Adults: Screening (or Modifier) ([facility]) 2019 SDOH Screening Reminder: Annually for all adults ([facility]) 2019 Tobacco Smoking Cessation: i n Adults excluding Women: Behavioral and Pharmacotherapy Interventions ([facility]) 2019 Lipid Screening: Once for Women aged 20 to 45 yrs ([facility]) 2021 Cervical Cancer Screenin-65 yrs of age (or Modifier) 2022 Cervical Cancer Screening: Pap every 3 yrs pts age 21-65 2022 Cervical Cancer: Pap Screening with Modifier timing ([facility]) 2022 Cervical Cancer: hrHPV alone or with cotesting Pap for Pts 30-65yrs screening every 5yrs ([facility]) 2022 DTaP/Tdap/Td Vaccines ([facility]) (7 - Td or Tdap) 06/25/2022 06/25/2012, 10/03/2006, 07/17/2002, Additional history exists COVID-19 Vaccine Screening: Initial Series and Booster Status ([facility]) (2023- season) 2024 Flu Vaccination: Yearly for ages 18mos through 64 years (or Modifier)([facility]) 12/11/2024 04/21/2021 Zoster/Shingles Vaccine Series Screening: Adults aged 18+ yrs (or HM Modifiers)([facility]) (1 of 2) 2051 10/03/2006, 04/23/2002 Pneumococcal Vaccination Screening: Pts 0-19 & 19-49 yrs of age ([facility]) Aged Out 05/11/2020, 01/13/2003, 2001, Additional history exists No longer eligible based on patient's age to complete this topic Medical Devices Not on file Insurance [facility] Care Teams Mud Analysis Supervisor Relationship Specialty Start Date End Date No, Pcp, FACTORY MACHINE COMPUTER OPERATOR N/A Do not use PCP - General Family Medicine 03/11/20
--- NOTE | 2024-09-14 09:10 | MHC.AMDMED ---
Intake Intake Visit Reasons: T1DM Contact Lens Lathe Operator Required: No Accompanied by: Self / Same As Patient Allergies No Known Allergies Allergy (Verified 09/09/24 15:34) HPI Comprehensive Diabetes Asmnt General Diabetes type type 1 Age of onset 15 Diabetes pertinent visit history endocrinology visit Most Recent Diabetes Results: No Data to Display [facility] Medical History Emphysematous cystitis Diabetic coma Migraine with aura Diabetes mellitus Kidney failure Surgical History History of cataract removal with insertion of prosthetic lens H/O right heart catheterization Family History Sister Depression Anxiety Bipolar 1 disorder Mother Alcohol abuse Father Alcohol abuse Other Substance abuse Social History Housing: House Alcohol intake: never Patient Tobacco Use Status: Never used Tobacco e-Cigarette/Vaping Use: Never Used service: No Current occupational status: unemployed Sexual orientation: Straight/Heterosexual Gender identity: Female Cognitive needs: No Hearing needs: No Vision needs: Yes Female Reproductive History Menstrual Age of Menarche: 13 Assessment & Plan Assessment & Plan (1) Type 1 diabetes: Code(s): E10.9 - Type 1 diabetes mellitus without complications Plan: Patient presents for pump training for Omnopod 5 pump and Dexcom G6 CGM training today. The following topics were reviewed today: -Pump therapy basic concepts: Basal/bolus, insulin to carb ratio, correction factor, insulin on board -connecting patient to clinic [facility] account For the past 5 days patient has been adding carbohydrates into insulin pump more frequently still has a few episodes of hypoglycemia overnight. Increase target range for 110-120 mg/dL overnight The majority of the visit was spent speaking with [employer] customer service order to correct connection issues with patient's [employer] account We successfully linked patient to clinic account At next visit we will discuss setting up Omnipod 5 bishop in patient's iPhone Instructed patient to only use room temperature insulin, how to load cartridge or fill pod, with insulin. Fill tubing and cannula (if applicable) Inserting infusion set or starting pod Troubleshooting after starting new pod or inserting new insulin set: Occlusion, adhesive tape sensitivity, redness Check BG 2 hours after site change Safety information: Importance of a backup plan, for manual injections, proper prescriptions and emergency supplies ketone strips, and rules for testing for ketones Patient understands the basic concepts of pump therapy, how to give insulin for meals and snacks, how to troubleshoot for hyper and hypoglycemia. Setting verified by [facility] Basal rate(s) (units/hour) : 12 AM to 12 AM 1.4 units / hr Bolus setting Insulin Carbohydrate Ratio (s) 12 AM to 12 AM ? 1:5 Correction Factor / Sensitivity Factor 12 AM to 12 AM ? 1:30 Active Insulin Time:? 2 hours Target(s): 12 AM? to 9 AM 120 mg/dL 9 AM to 12 AM 110 mg/dL Correction threshold: 12 AM? to 9 AM 120 mg/dL 9 AM to 12 AM 110 mg/dL Patient will follow up with [facility] as instructed Patient will contact [facility] with questions or concerns, patient given IT number to support in any technical issues related to insulin pump Portions of this note were created using voice recognition software, please excuse any words or phrases that may have been misinterpreted. Coding Level of Care Code Est Pt Level 1 (89332) Diagnoses Type 1 diabetes E10.9
== END 2024-09-14 10:45 | disposition home or self-care (01) ==
LOC: HO.ENCR 07:51
PROVIDERS: PCP Nurse Practitioner Family; Visit Provider Registered Nurse Diabetes Educator
DX: E10.9 Type 1 diabetes mellitus without complications (principal)

== ENCOUNTER → 2024-09-14 07:51 | Outpatient (BNVA) | payer OTHER, SELFPAY | PROVIDERS: PCP Nurse Practitioner Family; Visit Provider Registered Nurse Diabetes Educator | DX: E10.9 Type 1 diabetes mellitus without complications (principal); Z96.41 Presence of insulin pump (external) (internal); Z79.4 Long term (current) use of insulin | CPT/HCPCS: 99211 ==

== ENCOUNTER 2024-09-22 07:55 | Outpatient (AMB) | payer OTHER, SELFPAY ==
--- NOTE | 2024-09-22 07:17 | A.OFFVIS_ITS ---
Vital Signs 09/22/24 08:00 Height 5 ft 2 in Weight 211 lb 10.3 oz BMI 38.7 BP 118/66 Blood Pressure Location Rt brachial Position Sitting Pulse 80 Pulse Source Pulse Oximeter Pulse Oximetry (%) 97 Oxygen Delivery Method Room Air Intake Visit Reasons: T1DM Intake Note: Patient presents today for a follow-up on Type 1 Diabetes Mellitus, on insulin pump: Last Diabetic eye exam was on: a year ago, had eye surgery Last Podiatry exam was on: Patient does not see a Gun Sealing Machine Operator Most recent HbA1c: 11.3%, 09/09/2024 Random Glucose- 107 mg/dL, Today Multimedia Specialist Required: No Accompanied by: Self / Same As Patient Allergies No Known Allergies Allergy (Verified 09/22/24 07:59) Medication List - Last Reconciled 09/22/24 by Tamra Jimenez NP acetone (urine) test (Ketone Urine Test strips) prn glucose over 250, nausea, vomiting, illness Baqsimi 3 mg/actuation (glucagon) 3 mg intranasal ONCE PRN 30 days MDD 6mg NS blood-glucose meter (Contour Next Meter) As directed for use to confirm sensor readings/lack of sensor clotrimazole-betamethasone 1-0.05 % 1 appl topical BID 7 days Contour Next Test Strips (blood sugar diagnostic) As directed NS Dexcom G6 Sensor (blood-glucose sensor) As directed every 10 days NS Dexcom G6 Transmitter (blood-glucose transmitter) As every 3 months for use with dexcom sensor NS Humalog U-100 Insulin (insulin lispro) up to 70 units daily via pump subcutaneously use as directed; 30 days MDD 70 units NS lancets (Microlet Lancet) As q 4 hours to confirm sensor reading/use when sensor not avail Lantus Solostar U-100 Insulin (insulin glargine) 18 units (0.18 mL) subcut DAILY PRN 30 days MDD 18 units NS levonorgestrel (Mirena) intrauterine Omnipod 5 G6-G7 Pods (Gen 5) (insulin pump cart,auto,BT,G6/7) As directed every 3 days NS terconazole 0.4% 1 appful vaginal BEDTIME 7 days HPI Comments Details: [age] YO female who is seen in f/u for type 1 diabetes. She was seen as an initial consult 2 weeks ago. She was followed by pediatric endo at [facility] until 09/11 5and is on an Omnipod pump. At her initial visit, her pump was on manual mode and she was not entering carbohydrate g. At the time of the visit she was instructed to go back to auto mode and to enter all of her carbohydrates pre meal in order to get an appropriate level of preprandial insulin. Initially diagnosed with T1dm at age [age] years old Was initially started on treatment with: started on insulin injections started on a pump approx 2023/ Omnipod G6 Pre pump A1C's 12%, post pump 9% done last fall Dexcom average glucose: 185 14 day continuous glucose monitor report reviewed Days with CGM data 81.8 % TIme in ranges: 18 % very high (above 250) 24 % high ?(181-250) 57 % in range ?(70-180] 1 % low (69-55) 0 % ?very low (below 54) Interpretation [on 3 days she had significant postprandial excursions secondary to not entering carbohydrate g counting ] On most days she is doing better with carbohydrate counting and is in auto mode now 96% of the time versus her previous appointment when she was in manual mode Total daily dose of insulin 49.3 65% basal 32.1 35% bolus 17.2 Pump settings Active insulin time 02:00 hours Minimum BG for bolus calc 70 Basal rates 12:00AM to 12:00PM 0.05 Correction factor 1:50 BG correction threshold 110 Insulin to carb ratio 1:5 1:4.5 new Treats lows with juice box. caries juice or skittles with her Family history of T1dm .great maternal aunt with type 1 No retinopathy: eyes checked yearly, last eye exam 1 year ago, surgery 2 years ago cataract will schedule f/u Denies neuropathy: has foot drop Had kidney failure in 2019 related to sepsis was on HD for a short time Has HLD, not on statin Denies CAD. She was hospitalized in 2019 with septic shock diabetic coma, ATN. She was [place] vascular [place] [facility] after this time due to footdrop. Fasting labs were ordered at her initial consult visit 2 weeks ago. Diet: Can count carbs pump report shows no entries Weigtt: weight stable diabetes education: has been to dm education Basal rate(s) (units/hour) : 12 AM to 12 AM 1.4 units / hr Bolus setting Insulin Carbohydrate Ratio (s) 12 AM to 12 AM ? 1:5 Correction Factor / Sensitivity Factor 12 AM to 12 AM ? 1:30 Active Insulin Time:? 2 hours Target(s): 12 AM? to 9 AM 120 mg/dL 9 AM to 12 AM 110 mg/dL Correction threshold: 12 AM? to 9 AM 120 mg/dL 9 AM to 12 AM 110 mg/dL 12 AM to 12 AM 1.4 units / hr Bolus setting Insulin Carbohydrate Ratio (s) 12 AM to 12 AM ? 1:5 Correction Factor / Sensitivity Factor 12 AM to 12 AM ? 1:30 Active Insulin Time:? 2 hours Target(s): 12 AM? to 9 AM 120 mg/dL 9 AM to 12 AM 110 mg/dL Correction threshold: 12 AM? to 9 AM 120 mg/dL 9 AM to 12 AM 110 mg/dL [facility] Medical History Emphysematous cystitis Diabetic coma Migraine with aura Diabetes mellitus Kidney failure Surgical History History of cataract removal with insertion of prosthetic lens H/O right heart catheterization Family History Sister Depression Anxiety Bipolar 1 disorder Mother Alcohol abuse Father Alcohol abuse Other Substance abuse Social History Housing: House Alcohol intake: never Patient Tobacco Use Status: Never used Tobacco e-Cigarette/Vaping Use: Never Used service: No Current occupational status: unemployed Sexual orientation: Straight/Heterosexual Gender identity: Female Cognitive needs: No Hearing needs: No Vision needs: Yes Female Reproductive History Menstrual Age of Menarche: 13 Physical Exam Vital Signs: Last Vital Signs Pulse 80 09/22/24 08:00 BP 118/66 09/22/24 08:00 Pulse Ox 97 09/22/24 08:00 Oxygen Delivery Method Room Air 09/22/24 08:00 BMI result Body Mass Index 38.7 Const Other: Absence of Cushingoid features. Absence of acromegalic features. Neck exam reveals nl size thyroid about 15 gms. No thyroid nodules palpable. Heart S1 S2, Reg R/R. No M/R G. Skin exam reveals absence of vitiligo or acanthosis nigricans. no edema Results Reviewed Results Reviewed: Laboratory Last Values Glucose (Clinic) 107 mg/dL (60-115) 09/22/24 08:04 Assessment & Plan Assessment & Plan (1) Type 1 diabetes: Code(s): E10.9 - Type 1 diabetes mellitus without complications Category: Medical Plan: 24-year-old type 1 diabetic on an Omnipod insulin pump with prior history of brief HD secondary to sepsis 4 years ago. Her pump numbers are substantially improved since her initial visit. Her average of 185 reflects several days where she did go up to the 300 range due to not entering carb. Insulin carb ratio was adjusted slightly to improve glycemic control and she was strongly encouraged to always enter all carbohydrate g She will meet with the breastfeeding educator [facility] today to pair her Omnipod with her I phone. She will follow back up in [address] Rajan. The patient had an opportunity to ask questions regarding treatment plan. The patient expressed understanding and agreement with the above treatment plan. The patient is aware they should contact our office by phone for worsening glucose readings or for any low blood sugars which may warrant a change in diabetes medication. Compliance is encouraged with medications and any followup testing/consults which may have been ordered. Patient Instructions: Symptoms of DKA (diabetic ketoacidosis): early: frequent urination, dry mouth, fatigue, feeling ill, severe symptoms: ketones in the urine, abdominal pain, nausea, vomiting and weakness. It is important to hydrate with sugar free liquids every 15-30 minutes and bring the sugars down to normal levels. If you are moderate or severe with ketones or unable to bring glucose to less than 200, go to the emergency room. Troubleshooting after starting new pod or inserting new insulin set: Occlusion, adhesive tape sensitivity, redness Check BG 2 hours after site change Safety information: Importance of a backup plan, for manual injections, proper prescriptions and emergency supplies ketone strips, and rules for testing for ketones DKA 1 handout given to patient Coding Level of Care Code Est Pt Level 4 (45820) Complex EM visit Add On G2211 Diagnoses Type 1 diabetes E10.9 Time Spent (min) 30 Comment Reviewing labs/provider notes, glucose sensor/pump reports, face to face, chart doc
--- OUTSIDE RECORDS SUMMARY | 2024-09-22 07:58 | XMS_ITS | Clinical Summary ---
Author Organization [facility] Address [address] [place] [phone] Phone Care Team Providers Care Windows And Doors Installer Name Role Phone Unavailable Primary Care Provider Unavailabl e Allergies No known active allergies Medications Insulin Lispro 100 UNIT/ML solution cartridge HUMALOG; Active Acti ve insulin glargine 100 UNIT/ML injection LANTUS; Active Activ e Continuous Blood Gluc Hosted Services Analyst (DEXCOM G6 HOME ASSESSMENT NURSE) device U UTD TO MONITOR BLOOD GLUCOSE [...] 08/30/2019 Overview (10/29/2019): 10/27/19: Pedi Neurology at [facility] ( telemedicine)- unclear if neurologic deficits can be entirely explained by myasthenia gravis: increase of Mestinon made, taper GBP f/u in 3 mo at which time will recheck labs and consider rpt EMG Assessment & Plan (08/24/2020 8:17 AM EDT): Followed by neurology at [facility]- is off gabapentin. Happy with dramatic [...] this time- was getting weekly EKGs at [facility] Attention-deficit hyperactiv ity disorder, predominantly inattentive type [...] AM EDT): Followed by Pedi Endocrinology at [facility]- on insulin Assessment & Plan (08/30/2019 7:54 AM EDT): DKA on 06/08/19- admitted to [facility] PICU currently in good control- followed by [...] 08/24/2020 Overview (09/24/2019): 09/23/19: [facility] ([facility])- needs rpt sleep study- mom requesting to do at [facility], PFTs ( when clear to come back for inpatient visit) and given Rx for albuterol prn Influenza B 08/30/2019 08/24/2020 Overview (08/30/2019): Admission on June 08, 2019 to [facility] PICU Assessment & Plan (08/30/2019 7:51 AM EDT): Complex prolonged hospitalization from June 08, 2019 through 08/07/19 with rehabilitation at [facility] from 08/07/19 until 08/19/19 Anemia 02/14/2017 08/24/2020 [...] history exists Procedures * Due to [place] law, this organization might not be sharing sensitive test results. Procedure Name Priority Date/Time Associated Diagnosis Comments CHLAMYDIA AND GONORRHEA, AMPLIFIED Routine 08/23/2020 2:27 PM EDT Encounter for screening examination for sexually transmitted disease from Last 3 Months or Most Recently Relevant to Health Maintenance Results * Due to [place] law, this organization might not be sharing sensitive test results. * Chlamydia and Gonorrhoea, Amplified (08/23/2020 2:27 PM EDT) Chlamydia Trachomatis, DNA Probe NEGATIVE (NEG) [facility] Comment: No Chlamydia Trachomatis RNA detected in this patient's sample ? (REFERENCE RANGE/NORMAL VALUE: NOT DETECTED) ? Note: This test uses golf instructor- mediated amplification method to detect rRNA from C. Trachomatis URINE GC AMP PROBE NEGATIVE (NEG) [facility] Comment: No Neisseria Gonorrhoeae RNA detected in this patient's sample ? (REFERENCE RANGE/NORMAL VALUE: NOT DETECTED) ? NOTE: This test uses golf instructor-mediated amplification method to detect rRNA from N.Gonorrhoeae. [...] without risk of sexual abuse. Consult the [facility] if needed. Contact phone number . Therapeutic failure or success cannot be determined with the Aptima Combo2 assay since nucleic acid may persist following appropriate antimicrobial therapy. The Centers for Disease Control and Prevention (CDC) recommends confirmatory retesting using culture or a different nucleic acid amplification test when positive results occur, if indicated. Testing performed or reported by [facility], a Service of [facility], [address] [place] [address] Thang De Los Santos MD, Inventory And Pricing Associate Urine (Urine) 08/23/2020 2:2 7 PM EDT 08/23/2020 9:36 PM EDT us Roberta Barnhart MD LAB MICROBIOLOGY - GENERAL ORDER ALPHONSO Final Result [facility] from Last 3 Months or Most Recently Relevant to Health Maintenance Insurance [facility]
--- OUTSIDE RECORDS SUMMARY | 2024-09-22 07:58 | XMS_ITS | Encounter Summary ---
Author Organization [facility] Address [address] [place] [address] Phone Care Team Providers Care Computer Clerk Name Role Phone Lyly Barroso MD Primary Care Provider [phone] Reason for Visit * Reason Comments Med Refill Encounter Details Date Type Department Care Team (Late st Contact Info) Description 05/10/2021 [facility]ill [facility] [address] [address] Roberta Barnhart MD Oral contraception initiation Social [...] initiation documented in this encounter Care Teams Computer Clerk Relationship Specialty Start Date End Date Lyly Barroso MD [address] [facility] [place] [address] PCP - General Pediatrics 06/25/22 03/31/24 documented as of this encounter
--- OUTSIDE RECORDS SUMMARY | 2024-09-22 07:58 | XMS_ITS | Clinical Summary ---
Author Organization [email or web address] Address [address] [facility] [place] [address] Care Team Providers Care Cat Breeder Name Role Phone No, Pcp DOORPERSON OR LUGGAGE PORTER Primary Care Provider Unavailabl e Social History [...] Adults 18 yrs or above (or HM Modifier)([facility]) 2019 Hepatitis C Virus Infection in Adolescents and Adults: Screening (or Modifier) ([facility]) 2019 SDOH Screening Reminder: Annually for all adults ([facility]) 2019 Tobacco Smoking Cessation: i n Adults excluding Women: Behavioral and Pharmacotherapy Interventions ([facility]) 2019 Lipid Screening: Once for Women aged 20 to 45 yrs ([facility]) 2021 Cervical Cancer Screenin-65 yrs of age (or Modifier) 2022 Cervical Cancer Screening: Pap every 3 yrs pts age 21-65 2022 Cervical Cancer: Pap Screening with Modifier timing ([facility]) 2022 Cervical Cancer: hrHPV alone or with cotesting Pap for Pts 30-65yrs screening every 5yrs ([facility]) 2022 DTaP/Tdap/Td Vaccines ([facility]) (7 - Td or Tdap) 06/25/2022 06/25/2012, 10/03/2006, 07/17/2002, Additional history exists COVID-19 Vaccine Screening: Initial Series and Booster Status ([facility]) (2023- season) 2024 Flu Vaccination: Yearly for ages 18mos through 64 years (or Modifier)([facility]) 12/11/2024 04/21/2021 Zoster/Shingles Vaccine Series Screening: Adults aged 18+ yrs (or HM Modifiers)([facility]) (1 of 2) 2051 10/03/2006, 04/23/2002 Pneumococcal Vaccination Screening: Pts 0-19 & 19-49 yrs of age ([facility]) Aged Out 05/11/2020, 01/13/2003, 2001, Additional history exists No longer eligible based on patient's age to complete this topic Medical Devices Not on file Insurance [facility] Care Teams Cat Breeder Relationship Specialty Start Date End Date No, Pcp, DOORPERSON OR LUGGAGE PORTER N/A Do not use PCP - General Family Medicine 03/11/20
--- OUTSIDE RECORDS SUMMARY | 2024-09-22 07:58 | XMS_ITS | Clinical Summary ---
Author Organization [facility] Address [address] [place] [address] Phone Care Team Providers Care Metal Dealer Name Role Phone Tere Plascencia Primary Care [...] of Treatment Not on file Care Teams Metal Dealer Relationship Specialty Start Date End Date Tere Plascencia PCP - General 06/21/19 Tere Plascencia PCP - Clinical PCP 06/21/19
--- OUTSIDE RECORDS SUMMARY | 2024-09-22 07:58 | XMS_ITS | Encounter Summary ---
Author Organization [facility] Address [address] [place] [address] Phone Care Team Providers Care Live Source Operator Name Role Phone Lyly Barroso MD Primary Care Provider [phone] Reason for Visit * Reason Comments Med Refill Encounter Details Date Type Department Care Team (Late st Contact Info) Description 10/04/2022 [facility]ill [facility] [address] [address] Roberta Barnhart MD Depression, unspecified depression type [...] type documented in this encounter Care Teams Live Source Operator Relationship Specialty Start Date End Date Lyly Barroso MD [address] [facility] [place] [address] PCP - General Pediatrics 06/25/22 03/31/24 documented as of this encounter
--- OUTSIDE RECORDS SUMMARY | 2024-09-22 07:58 | XMS_ITS | Encounter Summary ---
Author Organization [facility] Address [address] [place] [address] Phone Care Team Providers Care Senior Business Development Manager Name Role Phone Lyly Barroso MD Primary Care Provider [phone] Encounter Details Date Type Department Care Team (Late st Contact Info) Description 09/29/2017 Conversion Encounter [facility] [address] [place] [address] Yamileth Ray MD [address] [place] [address] Social History Tobacco Use Types Packs/Day Years [...] on filedocumented in this encounter Care Teams Senior Business Development Manager Relationship Specialty Start Date End Date Lyly Barroso MD [address] [place] [address] PCP - General Pediatrics 06/25/22 03/31/24 documented as of this encounter
--- OUTSIDE RECORDS SUMMARY | 2024-09-22 07:58 | XMS_ITS | Clinical Summary ---
Author Organization [facility] Address [address] [place] [address] Care Team Providers Care Vp Integration Name Role Phone Pcp, No Primary Care Provider Unavailabl e Allergies No known active allergies Medications Continuous Blood Gluc Sensor (Dexcom G6 Sensor) [facility] USE TO MONITOR BLOOD SUGARS 03/28/20 Active Insulin Disposable Pump (Omnipod 5 G6 Pod, Gen 5,) [facility] 03/28/20 Active HumaLOG 100 UNIT/ML injection USE SUBCUTANEOUSLY VIA INSULIN PUMP. MAX DAILY DOSE 100 UNITS. 03/26/20 Active Insulin Disposable Pump (Omnipod 5 G6 Intro, Gen 5,) Kit 01/09/20 Active fluocinonide (LIDEX) 0.05 % external solution APPLY TWICE DAILY TO THE SCALP FOR 2 WEEKS ON, THEN TAKE 1 WEEK OFF. REPEAT NEEDED. 02/21/20 Active Continuous Blood Gluc Transmit (Dexcom G6 Transmitter) [facility] 03/29/20 Active insulin glargine (LANtus/SEMGLEE) 100 units/mL [...] series) 2020 Pap Smear (Ages 21-65) 2022 COVID-19 Vaccine (1 - 2023-2 5 season) 2024 Influenza Vaccine 12/11/2024 Hemoglobin A1C Discontinued 03/30/2023 Pneumococcal Vaccine: Pediat [...] PA-C LAB BLOOD ORDERABLES Fi nal Result [address] [address], [address] [address] from Last 3 Months or Most Recently Relevant to Health Maintenance Insurance [facility] OUT OF STATE - PPO MEDICAID OUT OF STATE [facility] Advance Directives * Full Code (Latest Code Status on File) Date Activated Date Inactivated Comments 03/29/2023 4:28 AM Care Teams Vp Integration Relationship Specialty Start Date End Date Pcp, Shruthi [address] [place] [address] PCP - General 03/29/23
--- OUTSIDE RECORDS SUMMARY | 2024-09-22 07:58 | XMS_ITS | Clinical Summary ---
Author Organization [facility], Address [address] [place] [address] [place] [address] Phone Care Team Providers Care Section Laborer Name Role Phone Unavailable Primary Care Provider [...]
--- OUTSIDE RECORDS SUMMARY | 2024-09-22 07:58 | XMS_ITS | Encounter Summary ---
Author Organization [facility] Address [address] [place] [address] Phone Care Team Providers Care Packaging Materials Inspector Name Role Phone Lyly Barroso MD Primary Care Provider [phone] Reason for Visit * Reason Comments Med Refill Encounter Details Date Type Department Care Team (Late st Contact Info) Description 08/31/2020 [facility]ill [facility] [address] [place], [place] [phone] Torrie Sheikh NP [address] [place] [address] Oral contraception initiation Social History Tobacco Use [...] AM EDT Refill request for Larissia Last [facility] was 08/23/20 Please review documented in this encounter Plan of Treatment Not on file documented as of this encounter Visit Diagnoses Diagnosis Oral contraception initiation documented in this encounter Care Teams Packaging Materials Inspector Relationship Specialty Start Date End Date Lyly Barroso MD [address] [facility] [place] [address] PCP - General Pediatrics 06/25/22 03/31/24 documented as of this encounter
--- OUTSIDE RECORDS SUMMARY | 2024-09-22 07:58 | XMS_ITS | Clinical Summary ---
Author Organization [facility] it[facility] Address [address] [place] [address] Care Team Providers Care Phlebotomist Name Role Phone Unavailable Primary Care Provider [...] Documents on File Type Date Recorded Patient Curator Of Photography And Prints Expl anation Health Care Decision (hx) 08/21/2019 AD PATINO DIRECTIVE Health Care Decision (hx) 08/10/2019 AD PATINO DIRECTIVE
[2024-09-22 08:00] VITALS: BP 118/66; PULSE 80; O2SAT 97; BMI 38.7
[2024-09-22 08:10] LABS: Glucose, Whole Blood 107 mg/dL (60-115)
== END 2024-09-22 09:05 | disposition home or self-care (01) ==
LOC: HO.ENCR 07:56
PROVIDERS: PCP Nurse Practitioner Family; Visit Provider Nurse Practitioner Adult Health
DX: E10.9 Type 1 diabetes mellitus without complications (principal)
CPT/HCPCS: 99214

== ENCOUNTER → 2024-09-22 07:55 | Outpatient (BNVA) | payer OTHER, SELFPAY | PROVIDERS: PCP Nurse Practitioner Family; Visit Provider Nurse Practitioner Adult Health | DX: E10.9 Type 1 diabetes mellitus without complications (principal); Z96.41 Presence of insulin pump (external) (internal) | CPT/HCPCS: 82947; 99211 ==

== ENCOUNTER 2024-09-22 08:24 | Outpatient (AMB) | payer OTHER, SELFPAY ==
--- OUTSIDE RECORDS SUMMARY | 2024-09-22 08:34 | XMS_ITS | Clinical Summary ---
Author Organization [facility] Address [address] [place] [address] Phone Care Team Providers Care Cutter Operator Name Role Phone Tere Plascencia Primary Care [...] of Treatment Not on file Care Teams Cutter Operator Relationship Specialty Start Date End Date Tere Plascencia PCP - General 06/21/19 Tere Plascencia PCP - Clinical PCP 06/21/19
--- OUTSIDE RECORDS SUMMARY | 2024-09-22 08:34 | XMS_ITS | Clinical Summary ---
Author Organization [facility] Address [address] [place] [phone] Phone Care Team Providers Care Retirement Plan Specialist Name Role Phone Unavailable Primary Care Provider Unavailabl e Allergies No known active allergies Medications Insulin Lispro 100 UNIT/ML solution cartridge HUMALOG; Active Acti ve insulin glargine 100 UNIT/ML injection LANTUS; Active Activ e Continuous Blood Gluc Senior Sales Director (DEXCOM G6 JAVA ANDROID DEVELOPER) device U UTD TO MONITOR BLOOD GLUCOSE [...] 08/30/2019 Overview (10/29/2019): 10/27/19: Pedi Neurology at [facility] ( telemedicine)- unclear if neurologic deficits can be entirely explained by myasthenia gravis: increase of Mestinon made, taper GBP f/u in 3 mo at which time will recheck labs and consider rpt EMG Assessment & Plan (08/24/2020 8:17 AM EDT): Followed by neurology at [facility]- is off gabapentin. Happy with dramatic [...] this time- was getting weekly EKGs at [facility] Attention-deficit hyperactiv ity disorder, predominantly inattentive type [...] AM EDT): Followed by Pedi Endocrinology at [facility]- on insulin Assessment & Plan (08/30/2019 7:54 AM EDT): DKA on 06/08/19- admitted to [facility] PICU currently in good control- followed by [...] 08/24/2020 Overview (09/24/2019): 09/23/19: [facility] ([facility])- needs rpt sleep study- mom requesting to do at [facility], PFTs ( when clear to come back for inpatient visit) and given Rx for albuterol prn Influenza B 08/30/2019 08/24/2020 Overview (08/30/2019): Admission on June 08, 2019 to [facility] PICU Assessment & Plan (08/30/2019 7:51 AM EDT): Complex prolonged hospitalization from June 08, 2019 through 08/07/19 with rehabilitation at [facility] from 08/07/19 until 08/19/19 Anemia 02/14/2017 08/24/2020 [...] history exists Procedures * Due to [place] law, this organization might not be sharing sensitive test results. Procedure Name Priority Date/Time Associated Diagnosis Comments CHLAMYDIA AND GONORRHEA, AMPLIFIED Routine 08/23/2020 2:27 PM EDT Encounter for screening examination for sexually transmitted disease from Last 3 Months or Most Recently Relevant to Health Maintenance Results * Due to [place] law, this organization might not be sharing sensitive test results. * Chlamydia and Gonorrhoea, Amplified (08/23/2020 2:27 PM EDT) Chlamydia Trachomatis, DNA Probe NEGATIVE (NEG) [facility] Comment: No Chlamydia Trachomatis RNA detected in this patient's sample ? (REFERENCE RANGE/NORMAL VALUE: NOT DETECTED) ? Note: This test uses moth proofer- mediated amplification method to detect rRNA from C. Trachomatis URINE GC AMP PROBE NEGATIVE (NEG) [facility] Comment: No Neisseria Gonorrhoeae RNA detected in this patient's sample ? (REFERENCE RANGE/NORMAL VALUE: NOT DETECTED) ? NOTE: This test uses moth proofer-mediated amplification method to detect rRNA from N.Gonorrhoeae. [...] without risk of sexual abuse. Consult the [facility] if needed. Contact phone number . Therapeutic failure or success cannot be determined with the Aptima Combo2 assay since nucleic acid may persist following appropriate antimicrobial therapy. The Centers for Disease Control and Prevention (CDC) recommends confirmatory retesting using culture or a different nucleic acid amplification test when positive results occur, if indicated. Testing performed or reported by [facility], a Service of [facility], [address] [place] [address] Thang De Los Santos MD, Filler Leaf Cutter Long Urine (Urine) 08/23/2020 2:2 7 PM EDT 08/23/2020 9:36 PM EDT us Roberta Barnhart MD LAB MICROBIOLOGY - GENERAL ORDER ALPHONSO Final Result [facility] from Last 3 Months or Most Recently Relevant to Health Maintenance Insurance [facility]
--- OUTSIDE RECORDS SUMMARY | 2024-09-22 08:34 | XMS_ITS | Encounter Summary ---
Author Organization [facility] Address [address] [place] [address] Phone Care Team Providers Care Electrical Technology Instructor Name Role Phone Lyly Barroso MD Primary Care Provider [phone] Reason for Visit * Reason Comments Med Refill Encounter Details Date Type Department Care Team (Late st Contact Info) Description 05/10/2021 [facility]ill [facility] [address] [address] Roberta Barnhart MD Oral contraception initiation Social [...] initiation documented in this encounter Care Teams Electrical Technology Instructor Relationship Specialty Start Date End Date Lyly Barroso MD [address] [facility] [place] [place] [address] PCP - General Pediatrics 06/25/22 03/31/24 documented as of this encounter
--- OUTSIDE RECORDS SUMMARY | 2024-09-22 08:34 | XMS_ITS | Clinical Summary ---
Author Organization [facility], Address [address] [place] [address] [place] [address] Phone Care Team Providers Care Computer Aided Design Operator Name Role Phone Unavailable Primary Care Provider [...]
--- OUTSIDE RECORDS SUMMARY | 2024-09-22 08:34 | XMS_ITS | Encounter Summary ---
Author Organization [facility] Address [address] [place] [address] Phone Care Team Providers Care Site Operations Manager Name Role Phone Lyly Barroso MD Primary Care Provider [phone] Reason for Visit * Reason Comments Med Refill Encounter Details Date Type Department Care Team (Late st Contact Info) Description 10/04/2022 [facility]ill [facility] [address] [address] Roberta Barnhart MD Depression, unspecified depression type [...] type documented in this encounter Care Teams Site Operations Manager Relationship Specialty Start Date End Date Lyly Barroso MD [address] [facility] [place] [address] PCP - General Pediatrics 06/25/22 03/31/24 documented as of this encounter
--- OUTSIDE RECORDS SUMMARY | 2024-09-22 08:34 | XMS_ITS | Encounter Summary ---
Author Organization [facility] Address [address] [place] [address] Phone Care Team Providers Care Repairer Resistance Welding Machines Name Role Phone Lyly Barroso MD Primary Care Provider [phone] Reason for Visit * Reason Comments Med Refill Encounter Details Date Type Department Care Team (Late st Contact Info) Description 08/31/2020 Refill [facility] [address], [place] [id number] Torrie Sheikh NP [address] [place] [address] Oral contraception initiation Social History Tobacco Use [...] AM EDT Refill request for Larissia Last [facility] was 08/23/20 Please review documented in this encounter Plan of Treatment Not on file documented as of this encounter Visit Diagnoses Diagnosis Oral contraception initiation documented in this encounter Care Teams Repairer Resistance Welding Machines Relationship Specialty Start Date End Date Lyly Barroso MD [address] [facility] [place] [address] PCP - General Pediatrics 06/25/22 03/31/24 documented as of this encounter
--- OUTSIDE RECORDS SUMMARY | 2024-09-22 08:34 | XMS_ITS | Clinical Summary ---
Author Organization [facility] Address [address] [place] [address] Care Team Providers Care Banquet Lead Name Role Phone Pcp, No Primary Care Provider Unavailabl e Allergies No known active allergies Medications Continuous Blood Gluc Sensor (Dexcom G6 Sensor) [facility] USE TO MONITOR BLOOD SUGARS 03/28/20 Active Insulin Disposable Pump (Omnipod 5 G6 Pod, Gen 5,) [facility] 03/28/20 Active HumaLOG 100 UNIT/ML injection USE SUBCUTANEOUSLY VIA INSULIN PUMP. MAX DAILY DOSE 100 UNITS. 03/26/20 Active Insulin Disposable Pump (Omnipod 5 G6 Intro, Gen 5,) Kit 01/09/20 Active fluocinonide (LIDEX) 0.05 % external solution APPLY TWICE DAILY TO THE SCALP FOR 2 WEEKS ON, THEN TAKE 1 WEEK OFF. REPEAT NEEDED. 02/21/20 Active Continuous Blood Gluc Transmit (Dexcom G6 Transmitter) [facility] 03/29/20 Active insulin glargine (LANtus/SEMGLEE) 100 units/mL [...] 11.1(H) <5.7 % 03/30/2023 9:42 AM EST [facility] Comment: A1c% ? Interpretation 5.7 - 6.0 ?Increase risk of diabetes 6.1 - 6.4 ?Higher risk of diabetes > or = 6.5 ?? Consistent with diabetes Diabetes Care, 33(Supp 1):S1-S61, 2010 Estimated Average Glucose 272 mg/dL 03/30/2023 9:42 AM EST [facility] Blood specimen (specimen) Blood specimen / Unknown 03/30/2023 4:02 AM EST 03/30/2023 4:07 AM EST Chung French PA-C LAB BLOOD ORDERABLES Fi nal Result [address] [address], [address] [address] from Last 3 Months or Most Recently Relevant to Health Maintenance Insurance [facility] OUT OF STATE - PPO MEDICAID OUT [place] STATE [facility] Advance Directives * Full Code (Latest Code Status on File) Date Activated Date Inactivated Comments 03/29/2023 4:28 AM Care Teams Banquet Lead Relationship Specialty Start Date End Date Pcp, Shruthi [address] [place] [address] PCP - General 03/29/23
--- OUTSIDE RECORDS SUMMARY | 2024-09-22 08:34 | XMS_ITS | Encounter Summary ---
Author Organization [facility] Address [address] [place] [address] Phone Care Team Providers Care Customer Service Coordinator Name Role Phone Lyly Barroso MD Primary Care Provider [phone] Encounter Details Date Type Department Care Team (Late st Contact Info) Description 09/29/2017 Conversion Encounter [facility] [address] [place] [address] Yamileth Ray MD [address] [place] [address] Social History Tobacco Use Types Packs/Day Years [...] on filedocumented in this encounter Care Teams Customer Service Coordinator Relationship Specialty Start Date End Date Lyly Barroso MD [address] [place] [address] PCP - General Pediatrics 06/25/22 03/31/24 documented as of this encounter
--- OUTSIDE RECORDS SUMMARY | 2024-09-22 08:34 | XMS_ITS | Clinical Summary ---
Author Organization [facility] [facility] Address [address] [facility] [place] [address] Care Team Providers Care Productivity Engineer Name Role Phone No, Pcp CONSTRUCTION SUPERVISOR/CARPENTER Primary Care Provider Unavailabl e Social History [...] Adults 18 yrs or above (or HM Modifier)([facility]) 2019 Hepatitis C Virus Infection in Adolescents and Adults: Screening (or Modifier) ([facility]) 2019 SDOH Screening Reminder: Annually for all adults ([facility]) 2019 Tobacco Smoking Cessation: i n Adults excluding Women: Behavioral and Pharmacotherapy Interventions ([facility]) 2019 Lipid Screening: Once for Women aged 20 to 45 yrs ([facility]) 2021 Cervical Cancer Screenin-65 yrs of age (or Modifier) 2022 Cervical Cancer Screening: Pap every 3 yrs pts age 21-65 2022 Cervical Cancer: Pap Screening with Modifier timing ([facility]) 2022 Cervical Cancer: hrHPV alone or with cotesting Pap for Pts 30-65yrs screening every 5yrs ([facility]) 2022 DTaP/Tdap/Td Vaccines ([facility]) (7 - Td or Tdap) 06/25/2022 06/25/2012, 10/03/2006, 07/17/2002, Additional history exists COVID-19 Vaccine Screening: Initial Series and Booster Status ([facility]) (2023- season) 2024 Flu Vaccination: Yearly for ages 18mos through 64 years (or Modifier)([facility]) 12/11/2024 04/21/2021 Zoster/Shingles Vaccine Series Screening: Adults aged 18+ yrs (or HM Modifiers)([facility]) (1 of 2) 2051 10/03/2006, 04/23/2002 Pneumococcal Vaccination Screening: Pts 0-19 & 19-49 yrs of age ([facility]) Aged Out 05/11/2020, 01/13/2003, 2001, Additional history exists No longer eligible based on patient's age to complete this topic Medical Devices Not on file Insurance [facility] Care Teams Productivity Engineer Relationship Specialty Start Date End Date No, Pcp, CONSTRUCTION SUPERVISOR/CARPENTER N/A Do not use PCP - General Family Medicine 03/11/20
--- NOTE | 2024-09-22 09:03 | A.OFFVIS_ITS ---
Intake Intake Visit Reasons: T1DM System Sales Consultant Required: No Accompanied by: Self / Same As Patient Allergies No Known Allergies Allergy (Verified 09/22/24 07:59) HPI Comprehensive Diabetes Asmnt Most Recent Diabetes Results: No Data to Display [facility] Medical History Emphysematous cystitis Diabetic coma Migraine with aura Diabetes mellitus Kidney failure Surgical History History of cataract removal with insertion of prosthetic lens H/O right heart catheterization Family History Sister Depression Anxiety Bipolar 1 disorder Mother Alcohol abuse Father Alcohol abuse Other Substance abuse Social History Housing: House Alcohol intake: never Patient Tobacco Use Status: Never used Tobacco e-Cigarette/Vaping Use: Never Used service: No Current occupational status: unemployed Sexual orientation: Straight/Heterosexual Gender identity: Female Cognitive needs: No Hearing needs: No Vision needs: Yes Female Reproductive History Menstrual Age of Menarche: 13 Assessment & Plan Assessment & Plan (1) Type 1 diabetes: Code(s): E10.9 - Type 1 diabetes mellitus without complications Plan Patient presents for pump training for Omnipod 5 pump and Dexcom G6 CGM training today. Omnipod Username: claudia password: [email or web address]! Downloaded Omnipod 5 bishop on to patient's iPhone Settings entered into Instructed patient at next pod change to disconnect Dexcom G6 transmitter from Omnipod grinding wheel facer Enter transmitter number into iPhone bishop After Dexcom G6 sensor and transmitter are connected with Omnipod 5 bishop in patient's iPhone Proceed to set up new Omnipod 5 pods through iPhone Troubleshooting after starting new pod or inserting new insulin set: Occlusion, adhesive tape sensitivity, redness Check BG 2 hours after site change Safety information: Importance of a backup plan, for manual injections, proper prescriptions and emergency supplies ketone strips, and rules for testing for ketones Patient understands the basic concepts of pump therapy, how to give insulin for meals and snacks, how to troubleshoot for hyper and hypoglycemia. Setting verified by CDCES Basal rate(s) (units/hour) : 12 AM to 12 AM 1.4 units / hr Bolus setting Insulin Carbohydrate Ratio (s) 12 AM to 12 AM ? 1:4.5 Correction Factor / Sensitivity Factor 12 AM to 12 AM ? 1:30 Active Insulin Time:? 2 hours Target(s): 12 AM? to 9 AM 120 mg/dL 9 AM to 12 AM 110 mg/dL Correction threshold: 12 AM? to 9 AM 120 mg/dL 9 AM to 12 AM 110 mg/dL Patient will follow up with [facility] as instructed Patient will contact [facility] with questions or concerns, patient given IT number to support in any technical issues related to insulin pump Coding Level of Care Code Est Pt Level 1 ([address]3934) Diagnoses Type 1 diabetes E10.9
== END 2024-09-22 09:06 | disposition home or self-care (01) ==
LOC: HO.ENCR 08:24
PROVIDERS: PCP Nurse Practitioner Family; Visit Provider Registered Nurse Diabetes Educator
DX: E10.9 Type 1 diabetes mellitus without complications (principal)

== ENCOUNTER 2024-10-22 12:20 | Outpatient (AMB) | payer OTHER, SELFPAY ==
--- NOTE | 2024-10-22 12:53 | MHC.AMDMED ---
Intake Intake Visit Reasons: 60 min Gas Line Installer Required: No Accompanied by: Self / Same As Patient Allergies No Known Allergies Allergy (Verified 09/22/24 07:59) HPI Comprehensive Diabetes Asmnt Most Recent Diabetes Results: Microalb/Creat Ratio 6.0 ug/mg cr (<30) 04/17/23 Cholesterol 174 mg/dL (<200) 07/01/23 HDL Cholesterol 58 mg/dL (>40) 07/01/23 Triglycerides 99 mg/dL (<150) 07/01/23 Creatinine 1.13 mg/dL (0.5-1.4) 03/29/23 Blood Urea Nitrogen 22 mg/dL (9-16) H 03/29/23 Sodium 144 mmol/L (135-145) 03/29/23 Potassium 4.5 mmol/L (3.3-5.1) 03/29/23 Chloride 113 mmol/L (96-108) H 03/29/23 Carbon Dioxide 11 mmol/L (22-29) L 03/29/23 Calcium 9.2 mg/dL (8.4-10.2) 03/29/23 AST 12 U/L (5-31) 03/28/23 ALT 18 U/L (0-31) 03/28/23 Total Protein 7.9 g/dL (6.5-8.0) 03/28/23 Albumin 4.1 g/dL (3.5-5.0) 03/28/23 [facility] Medical History Emphysematous cystitis Diabetic coma Migraine with aura Diabetes mellitus Kidney failure Surgical History History of cataract removal with insertion of prosthetic lens H/O right heart catheterization Family History Sister Depression Anxiety Bipolar 1 disorder Mother Alcohol abuse Father Alcohol abuse Other Substance abuse Social History Housing: House Alcohol intake: never Patient Tobacco Use Status: Never used Tobacco e-Cigarette/Vaping Use: Never Used service: No Current occupational status: unemployed Sexual orientation: Straight/Heterosexual Gender identity: Female Cognitive needs: No Hearing needs: No Vision needs: Yes Female Reproductive History Menstrual Age of Menarche: 13 Assessment & Plan Assessment & Plan (1) Type 1 diabetes: Code(s): E10.9 - Type 1 diabetes mellitus without complications Plan: Plan Patient presents for pump training for Omnipod 5 pump and Dexcom G6 CGM training today. Omnipod Username: claudia password: [email or web address]! The following topics were reviewed today: -Dexcom G6 verses Dexcom G7 -importance in staying in automode -correcting high blood glucose Patient's glucose is improving. Patient reports that have been several times that she has been kicked out of automode. Explained to patient that if glucose sensor is at maximum for 2 hours she will be kicked back into manual mode. Patient also reports forgetting several times to enter carbohydrates, this has also led to hyperglycemia. Encourage patient to be more mindful when she is experiencing hypoglycemia to correct through insulin pump instead of waiting for insulin pump to correct hyperglycemia on its own. Discussed the difference between Dexcom G6 and Dexcom G7 sensors. Message sent to provider to send prescription for Dexcom G7 sensors. Instructed patient to contact pharmacy to confirm that she can get Omnipod 5 pods that will be compatible with Dexcom G7 sensors. Reviewed with patient how to switch from 1 sensor to another in iPhone bishop. Instructed patient if she has any questions about transitioning to Dexcom G7 to contact educator senior clinical, or Omnipod IT Patient will be due for next A1c in 1 month, has follow-up appointment in December [address] Rajan Troubleshooting after starting new pod or inserting new insulin set: Occlusion, adhesive tape sensitivity, redness Check BG 2 hours after site change Patient understands the basic concepts of pump therapy, how to give insulin for meals and snacks, how to troubleshoot for hyper and hypoglycemia. Setting verified by CDCES. No changes made to insulin pump settings at today's visit Basal rate(s) (units/hour) : 12 AM to 12 AM 1.4 units / hr Bolus setting Insulin Carbohydrate Ratio (s) 12 AM to 12 AM ? 1:4.5 Correction Factor / Sensitivity Factor 12 AM to 12 AM ? 1:30 Active Insulin Time:? 2 hours Target(s): 12 AM? to 9 AM 120 mg/dL 9 AM to 12 AM 110 mg/dL Correction threshold: 12 AM? to 9 AM 120 mg/dL 9 AM to 12 AM 110 mg/dL Patient will follow up with [facility] as instructed Patient will contact [facility] with questions or concerns, patient given IT number to support in any technical issues related to insulin pump Coding Level of Care Code Est Pt Level 1 (22791) Diagnoses Type 1 diabetes E10.9
--- OUTSIDE RECORDS SUMMARY | 2024-10-22 14:16 | XMS_ITS | Clinical Summary ---
Author Organization [facility] Address [address] [place] [phone] Phone Care Team Providers Care Optical Lathe Operator Name Role Phone Unavailable Primary Care Provider Unavailabl e Allergies No known active allergies Medications Insulin Lispro 100 UNIT/ML solution cartridge HUMALOG; Active Acti ve insulin glargine 100 UNIT/ML injection LANTUS; Active Activ e Continuous Blood Gluc Pipe Smoking Machine Operator (DEXCOM G6 CLOCK ASSEMBLER) device U UTD TO MONITOR BLOOD GLUCOSE [...] 08/30/2019 Overview (10/29/2019): 10/27/19: Pedi Neurology at [facility] ( telemedicine)- unclear if neurologic deficits can be entirely explained by myasthenia gravis: increase of Mestinon made, taper GBP f/u in 3 mo at which time will recheck labs and consider rpt EMG Assessment & Plan (08/24/2020 8:17 AM EDT): Followed by neurology at [facility]- is off gabapentin. Happy with dramatic improvements in eyelid function. Assessment & Plan (08/30/2019 7:52 AM EDT): Improving since discharge, follow up with Neurology in October Cardiomyopathy 08/28/2019 Overview (08/30/2019): Developed cardiogenic shock and myocarditis during prolonged complex hospitalization 06/08/19-08/07/19 initially triggered by influenza B infection Assessment & Plan (08/30/2019 7:54 AM EDT): No concerns at this time- was getting weekly EKGs at [facility] Attention-deficit hyperactiv ity disorder, predominantly inattentive type [...] 08/24/2020 Overview (09/24/2019): 09/23/19: [facility] ([facility])- needs rpt sleep study- mom requesting to do at [facility], PFTs ( when clear to come back for inpatient visit) and given Rx for albuterol prn Influenza B 08/30/2019 08/24/2020 Overview (08/30/2019): Admission on June 08, 2019 to [facility] P[facility] Assessment & Plan (08/30/2019 7:51 AM EDT): Complex prolonged hospitalization from June 08, 2019 through 08/07/19 with rehabilitation at [facility] from 08/07/19 until 08/19/19 Anemia 02/14/2017 08/24/2020 [...] Additional history exists Procedures * Due to [place] law, this organization might not be sharing sensitive test results. Procedure Name Priority Date/Time Associated Diagnosis Comments CHLAMYDIA AND GONORRHEA, AMPLIFIED Routine 08/23/2020 2:27 PM EDT Encounter for screening examination for sexually transmitted disease from Last 3 Months or Most Recently Relevant to Health Maintenance Results * Due to [place] law, this organization might not be sharing sensitive test results. * Chlamydia and Gonorrhoea, Amplified (08/23/2020 2:27 PM EDT) Chlamydia Trachomatis, DNA Probe NEGATIVE (NEG) [facility] Comment: No Chlamydia Trachomatis RNA detected in this patient's sample ? (REFERENCE RANGE/NORMAL VALUE: NOT DETECTED) ? Note: This test uses pocket creaser- mediated amplification method to detect rRNA from C. Trachomatis URINE GC AMP PROBE NEGATIVE (NEG) [facility] Comment: No Neisseria Gonorrhoeae RNA detected in this patient's sample ? (REFERENCE RANGE/NORMAL VALUE: NOT DETECTED) ? NOTE: This test uses pocket creaser-mediated amplification method to detect rRNA from N.Gonorrhoeae. [...] without risk of sexual abuse. Consult the [facility] if needed. Contact phone number . Therapeutic failure or success cannot be determined with the Aptima Combo2 assay since nucleic acid may persist following appropriate antimicrobial therapy. The Centers for Disease Control and Prevention (CDC) recommends confirmatory retesting using culture or a different nucleic acid amplification test when positive results occur, if indicated. Testing performed or reported by [facility], a Service of [facility], [address] [place] [address] Thang De Los Santos MD, Sample Grader Urine (Urine) 08/23/2020 2:2 7 PM EDT 08/23/2020 9:36 PM EDT us Roberta Barnhart MD LAB MICROBIOLOGY - GENERAL ORDER ALPHONSO Final Result [facility] from Last 3 Months or Most Recently Relevant to Health Maintenance Insurance [facility]
== END 2024-10-22 13:06 | disposition home or self-care (01) ==
LOC: HO.ENCR 12:20
PROVIDERS: PCP Nurse Practitioner Family; Visit Provider Registered Nurse Diabetes Educator
DX: E10.9 Type 1 diabetes mellitus without complications (principal)

== ENCOUNTER → 2024-10-22 12:20 | Outpatient (BNVA) | payer OTHER, SELFPAY | PROVIDERS: PCP Nurse Practitioner Family; Visit Provider Registered Nurse Diabetes Educator | DX: E10.9 Type 1 diabetes mellitus without complications (principal); Z96.41 Presence of insulin pump (external) (internal) | CPT/HCPCS: 99211 ==

== ENCOUNTER 2024-11-04 08:19 | Outpatient (AMB) | payer OTHER, SELFPAY ==
--- NOTE | 2024-11-04 08:31 | MHC.AMNUTRGE ---
VS Expanded 11/04/24 08:32 11/17/24 12:46 Height 5 ft 2 in 5 ft 2 in Weight 217 lb 2.485 oz 217 lb BMI 39.7 39.7 Intake Visit Reasons: T1DM Allergies No Known Allergies Allergy (Verified 09/22/24 07:59) Nutrition Presentation Details: Pt presents for MNT for T1DM Pt dx with T1DM at age of 15 Reports working on choosing foods that may help with energy, feeling tired after meals. Verbalizes wanting to work on carb counting food frequency fruits : 3/day dairy: 2 /day (cheese mostly) vegetables: does not like fish : does not like chips 0-1 ray 1-2 x/wk carb counting - aware, working on it physical activity : ADL etoh/smoking- denies PCR-Hodakmi-Rs.Jeor Equation Height: 5 ft 2 in Weight: 217 lb Resting Metabolic Rate: 1693.40 Calculated Activity Level: Sedentary Calories Needed to Maintain Weight: 2032.08 Diagnosis Nutrition problem #1: food nutri know defi As related to (etiology) #1: diagnosis As evidenced by (sign/symptom) #1: knowledge deficit of diet [facility] Medical History Emphysematous cystitis Diabetic coma Migraine with aura Diabetes mellitus Kidney failure Surgical History History of cataract removal with insertion of prosthetic lens H/O right heart catheterization Family History Sister Depression Anxiety Bipolar 1 disorder Mother Alcohol abuse Father Alcohol abuse Other Substance abuse Social History Housing: House Alcohol intake: never Patient Tobacco Use Status: Never used Tobacco e-Cigarette/Vaping Use: Never Used service: No Current occupational status: unemployed Sexual orientation: Straight/Heterosexual Gender identity: Female Cognitive needs: No Hearing needs: No Vision needs: Yes Female Reproductive History Menstrual Age of Menarche: 13 Assessment & Plan Assessment & Plan (1) Type 1 diabetes: Code(s): E10.9 - Type 1 diabetes mellitus without complications Category: Medical Plan: Wt: 99 Kg ( 12/04 ) Est kcal needs as per MSJ: 2000 (40% carb, 30% protein/fat) Est fluid needs as per 25-30 ml/d: 3000 Est prot per day as per 1 g/kg bw: 100 Recommend fiber intake : 8-10 g per day and gradually increase to 25-28 g per day for women and 35-38 g for men or as tolerated Recommend sodium intake per day : l less than 2300 mg Educated patient on: ( R = reviewed V = verbalizes understanding N/R = needs review N/A = not applicable Food sources of carbohydrate, adequate serving sizes and its role in various health conditions: R V N/R Differences between complex carbohydrates a simple carbohydrates, role of fiber in diet: R Lean protein sources of foods: R Differences between types of fats and role in diet (mono on saturated fat fatty acids, saturated fatty acids, trans fats): R V N/R Food sources of sodium in salt and healthy modifications for heart health in kidney health: R V R/V Vitamins and minerals: R V N/R Healthy plate method concept: R Physical activity: Benefits a precaution: R Hypoglycemia protocol (rule of 15): R V N/R Dietary prevention of Hyperglycemia: R Patient Instructions: Work on counting total carbs at dinner following healthy plate method, goal 45-60 g , enter amount of carb in your pump see meal ideas with food combinations and portion sizes with total carbs Keep hydrated by having water, herb/fruit flavor water low in sugar Coding Level of Care Code Nutr Indiv Intake (01555) Diagnoses Type 1 diabetes E10.9 Time Spent (min) 30
[2024-11-04 08:32] VITALS: BMI 39.7
--- OUTSIDE RECORDS SUMMARY | 2024-11-04 08:32 | XMS_ITS | Clinical Summary ---
Author Organization [facility] Address [address] [place] [id number] Phone Care Team Providers Care Hydraulic Miner Name Role Phone Unavailable Primary Care Provider Unavailabl e Allergies No known active allergies Medications Insulin Lispro 100 UNIT/ML solution cartridge HUMALOG; Active Acti ve insulin glargine 100 UNIT/ML injection LANTUS; Active Activ e Continuous Blood Gluc Systems Analyst (DEXCOM G6 DIRECT SUPPORT WORKER) device U UTD TO MONITOR BLOOD GLUCOSE [...] 08/30/2019 Overview (10/29/2019): 10/27/19: Pedi Neurology at [facility] ( telemedicine)- unclear if neurologic deficits can be entirely explained by myasthenia gravis: increase of Mestinon made, taper GBP f/u in 3 mo at which time will recheck labs and consider rpt EMG Assessment & Plan (08/24/2020 8:17 AM EDT): Followed by neurology at [facility]- is off gabapentin. Happy with dramatic [...] this time- was getting weekly EKGs at [facility] Attention-deficit hyperactiv ity disorder, predominantly inattentive type [...] AM EDT): Followed by Ped[facility]ocr[facility] [place] [facility] insulin Assessment & Plan (08/30/2019 7:54 AM EDT): DKA on 06/08/19- admitted to [facility] currently in good control- followed by [...] 08/24/2020 Overview (09/24/2019): 09/23/19: [facility] ([facility])- needs rpt sleep study- mom requesting to do at [facility], PFTs ( when clear to come back for inpatient visit) and given Rx for albuterol prn Influenza B 08/30/2019 08/24/2020 Overview (08/30/2019): Admission on June 08, 2019 to [facility] Assessment & Plan (08/30/2019 7:51 AM EDT): Complex prolonged hospitalization from June 08, 2019 through 08/07/19 with rehabilitation at [facility] from 08/07/19 until 08/19/19 Anemia 02/14/2017 08/24/2020 [...] PM EST Pulse - - Temperature 36.2 C (97.2 F) 08/28/2019 1:46 PM EDT Respiratory Rate - - Oxygen Saturation - [...] 04/21/2021, 03/07/2020, Additional history exists COVID-19 Vaccine ( - 2023-2 5 season) 2024 04/21/2021, 10/22/2020, [...] history exists Procedures * Due to [place] [employer] law, this organization might not be sharing sensitive test results. Procedure Name Priority Date/Time Associated Diagnosis Comments CHLAMYDIA AND GONORRHEA, AMPLIFIED Routine 08/23/2020 2:27 PM EDT Encounter for screening examination for sexually transmitted disease from Last 3 Months or Most Recently Relevant to Health Maintenance Results * Due to [place] [employer] law, this organization might not be sharing sensitive test results. * Chlamydia and Gonorrhoea, Amplified (08/23/2020 2:27 PM EDT) Chlamydia Trachomatis, DNA Probe NEGATIVE (NEG) [facility] Comment: No Chlamydia Trachomatis RNA detected in this patient's sample (REFERENCE RANGE/NORMAL VALUE: NOT DETECTED) Note: This test uses systems tester- mediated amplification method to detect rRNA from C. Trachomatis URINE GC AMP PROBE NEGATIVE (NEG) [facility] Comment: No Neisseria Gonorrhoeae RNA detected in this patient's sample (REFERENCE RANGE/NORMAL VALUE: NOT DETECTED) NOTE: This test uses systems tester-mediated amplification method to detect rRNA from N.Gonorrhoeae. [...] risk of sexual abuse. Consult the [facility] if needed. Contact phone number . Therapeutic failure or success cannot be determined with the Aptima Combo2 assay since nucleic acid may persist following appropriate antimicrobial therapy. The Centers for Disease Control and Prevention (CDC) recommends confirmatory retesting using culture or a different nucleic acid amplification test when positive results occur, if indicated. Testing performed or reported by [facility], a Service of [facility], [facility] [place] [address] Thang De Los Santos MD, Phlebotomy Services Representative Urine (Urine) 08/23/2020 2:2 7 PM EDT 08/23/2020 9:36 PM EDT us Roberta Barnhart MD LAB MICROBIOLOGY - GENERAL ORDER ALPHONSO Final Result [facility] from Last 3 Months or Most Recently Relevant to Health Maintenance Insurance [place] [employer] [facility]
[2024-11-17 12:46] VITALS: BMI 39.7
== END 2024-11-04 09:08 | disposition home or self-care (01) ==
LOC: HO.ENCR 08:20
PROVIDERS: PCP Nurse Practitioner Family; Visit Provider Dietitian, Registered
DX: E10.9 Type 1 diabetes mellitus without complications (principal)

== ENCOUNTER → 2024-11-04 08:19 | Outpatient (BNVA) | payer OTHER, SELFPAY | PROVIDERS: PCP Nurse Practitioner Family; Visit Provider Dietitian, Registered | DX: E10.9 Type 1 diabetes mellitus without complications (principal) | CPT/HCPCS: 97802 ==

== ENCOUNTER 2024-12-24 08:44 | Outpatient (AMB) | payer OTHER, SELFPAY ==
[2024-12-24 09:06] VITALS: BMI 40.3
--- NOTE | 2024-12-24 09:06 | A.OFFVIS_ITS ---
VS Expanded 12/24/24 09:06 12/31/24 08:50 Height 5 ft 2 in 5 ft 2 in Weight 220 lb 7.396 oz 220 lb BMI 40.3 40.2 Intake Visit Reasons: T1DM Allergies No Known Allergies Allergy (Verified 12/24/24 14:33) Medication List - Last Reconciled 12/24/[address], LDN acetone (urine) test (Ketone Urine Test strips) prn glucose over 250, nausea, vomiting, illness up to tid Baqsimi 3 mg/actuation (glucagon) 3 mg intranasal ONCE PRN 30 days MDD 6mg NS blood-glucose meter (Contour Next EZ Meter) As directed for use with strips blood-glucose sensor (Dexcom G7 Sensor device) As directed every 10 days clotrimazole-betamethasone 1-0.05 % 1 appl topical BID 7 days Contour Next Test Strips (blood sugar diagnostic) As directed up to 4 times daily prn sensor failure or to confirm glucose sensor reading NS Dexcom G6 Sensor (blood-glucose sensor) As directed every 10 days NS Dexcom G6 Transmitter (blood-glucose transmitter) As every 3 months for use with dexcom sensor NS Humalog U-100 Insulin (insulin lispro) up to 70 units daily via pump subcutaneously use as directed; 30 days MDD 70 units NS lancets (Microlet Lancet) up to 4 times daily to confirm sensor reading/use when sensor not avail Lantus Solostar U-100 Insulin (insulin glargine) 18 units (0.18 mL) subcut DAILY PRN 30 days MDD 18 units NS levonorgestrel (Mirena) intrauterine multivitamin 1 tab PO DAILY Omnipod 5 G6-G7 Pods (Gen 5) (insulin pump cart,auto,BT,G6/7) As directed every 3 days NS terconazole 0.4% 1 appful vaginal BEDTIME 7 days Nutrition Presentation Details: Pt presents for MNT f/u for T1DM Pt is interested in weight loss, and has questions related to medication for wt loss. Pt was advised to discuss medication management for wt loss with her doctor. Pt has an appt with endo physician this afternoon. pt reports having elevated blood glucose in the after noon and reports she is unable to understand it. We reviewed glucose sensor download and noticed total carb per day ranges from 0- 120 g per day. Pt admits to often forgetting to take boluses with meals and tries to do correction boluses instead Has had hypoglycemia, Pt reports alerting by having symptoms and also Glucose sensor alarm. Pt reports treating hypoglycemia by following rule of 15 Pt reports typical meal intake 10-12: eggs scrambled ,2 slices of whole wheat bread, water 2pm salad chicken and sandwich , water snack on granola bar 7:30 healthy plate: steak tips /mashed potatoes/carrots,water physical activity: enjoys yoga , goes for 15 min walk with sister a couple of times a week takes a daily one a day multivitamin XZR-Cegjszz-Ty.Jeor Equation Height: 5 ft 2 in Weight: 220 lb Resting Metabolic Rate: 1707.00 Calculated Activity Level: Sedentary Calories Needed to Maintain Weight: 2048.40 [facility] Medical History (Updated 12/24/24 @ 15:17 by Audelia Rajan MD) Obesity Emphysematous cystitis Diabetic coma Migraine with aura Diabetes mellitus Kidney failure Surgical History History of cataract removal with insertion of prosthetic lens H/O right heart catheterization Family History Sister Depression Anxiety Bipolar 1 disorder Mother Alcohol abuse Father Alcohol abuse Other Substance abuse Social History Housing: House Alcohol intake: never Patient Tobacco Use Status: Never used Tobacco e-Cigarette/Vaping Use: Never Used service: No Current occupational status: unemployed Sexual orientation: Straight/Heterosexual Gender identity: Female Cognitive needs: No Hearing needs: No Vision needs: Yes Female Reproductive History Menstrual Age of Menarche: 13 Assessment & Plan Assessment & Plan (1) Type 1 diabetes: Code(s): E10.9 - Type 1 diabetes mellitus without complications Category: Medical Plan: Pt not bolusing for meals and underestimating carbohydrate intake: a comb ination of forgetting to bolus, underestimating carbohydrate intake and attempts to lose weight Wt: 99 Kg ( 12/04 ), 100 kg (01/04) Est kcal needs as per MSJ: 2000 (40% carb, 30% protein/fat) Est fluid needs as per 25-30 ml/d: 3000 Est prot per day as per 1 g/kg bw: 100 Recommend fiber intake : 8-10 g per day and gradually increase to 25-28 g per day for women and 35-38 g for men or as tolerated Recommend sodium intake per day : l less than 2300 mg Educated patient on: ( R = reviewed V = verbalizes understanding N/R = needs review N/A = not applicable * Food sources of carbohydrate, adequate serving sizes and its role in various health conditions: R V N/R * Differences between complex carbohydrates a simple carbohydrates, role of fiber in diet: R * Lean protein sources of foods: R * Differences between types of fats and role in diet (mono on saturated fat fatty acids, saturated fatty acids, trans fats): R V N/R * Food sources of sodium in salt and healthy modifications for heart health in kidney health: R V R/V * Vitamins and minerals: R V N/R * Healthy plate method concept: R * Physical activity: Benefits a precaution: R * Hypoglycemia protocol (rule of 15): R V N/R * Dietary prevention of Hyperglycemia: R Patient Instructions: * Have a meal replacement once a day (4-6 g carbs, 30 g protein) * Enter 60 g of carbs at lunch time , better estimation of carbohydrate intake * Engage in 30 minutes of physical activity 3 times a week in the evening ; 6pm * call for questions prior to next appointment Coding Level of Care Code Nutr Indiv Subseq (75324) Diagnoses Type 1 diabetes E10.9 Time Spent (min) 30
--- OUTSIDE RECORDS SUMMARY | 2024-12-24 09:08 | XMS_ITS | Clinical Summary ---
Author Organization [facility] Address [address] [place] [address] Care Team Providers Care Lockstitch Collar Setter Name Role Phone Unavailable Primary Care Provider [...] Screening: P ap Smear 2022 COVID-19 Vaccine (1 - 2023-2 5 season) 2024 Depression Screening 05/13/2024 Influenza Vaccine (#1) 2025 HIB Vaccines Aged Out No longer [...] Documents on File Type Date Recorded Patient Glue Reel Operator Expl anation Health Care Decision (hx) 08/21/2019 AD PATINO DIRECTIVE Health Care Decision (hx) 08/10/2019 AD PATINO DIRECTIVE
--- OUTSIDE RECORDS SUMMARY | 2024-12-24 09:08 | XMS_ITS | Clinical Summary ---
Author Organization [facility] Address [address] [place] [phone] Phone Care Team Providers Care Report Programmer Name Role Phone Unavailable Primary Care Provider Unavailabl e Allergies No known active allergies Medications Insulin Lispro 100 UNIT/ML solution cartridge HUMALOG; Active Acti ve insulin glargine 100 UNIT/ML injection LANTUS; Active Activ e Continuous Blood Gluc Dry Talc Racker (DEXCOM G6 GENERATING PLANT SUPERINTENDENT) device U UTD TO MONITOR BLOOD [...] 08/30/2019 Overview (10/29/2019): 10/27/19: Pedi Neurology at [facility] ( telemedicine)- unclear if neurologic deficits can be entirely explained by myasthenia gravis: increase of Mestinon made, taper GBP f/u in 3 mo at which time will recheck labs and consider rpt EMG Assessment & Plan (08/24/2020 8:17 AM EDT): Followed by neurology at [facility]- is off gabapentin. Happy with dramatic [...] this time- was getting weekly EKGs at [facility] Attention-deficit hyperactiv ity disorder, predominantly inattentive type [...] AM EDT): Followed by Pedi Endocrinology at [facility]- on insulin Assessment & Plan (08/30/2019 7:54 AM EDT): DKA on 06/08/19- admitted to [facility] PICU currently in good [...] 08/24/2020 Overview (09/24/2019): 09/23/19: [facility] ([facility])- needs rpt sleep study- mom requesting to do at [facility], PFTs ( when clear to come back for inpatient visit) and given Rx for albuterol prn Influenza B 08/30/2019 08/24/2020 Overview (08/30/2019): Admission on June 08, 2019 to [facility] Assessment & Plan (08/30/2019 7:51 AM EDT): Complex prolonged hospitalization from June 08, 2019 through 08/07/19 with rehabilitation at [facility] from 08/07/19 until 08/19/19 Anemia 02/14/2017 08/24/2020 [...] 10/03/2006, 07/17/2002, Additional history exists COVID-19 Vaccine (2023-2 5 season) 2024 04/21/2021, 10/22/2020, 09/24/2020 Influenza Vaccines (#1) 2024 02/15/20, 04/21/2021, 03/07/2020, Additional history exists Hepatitis B Vaccines Completed 01/29/2002, 2001, 2001 [...] Additional history exists Procedures * Due to [place] [employer] law, this organization might not be sharing sensitive test results. Procedure Name Priority Date/Time Associated Diagnosis Comments CHLAMYDIA AND GONORRHEA, AMPLIFIED Routine 08/23/2020 2:27 PM EDT Encounter for screening examination for sexually transmitted disease from Last 3 Months or Most Recently Relevant to Health Maintenance Results * Due to [place] [employer] law, this organization might not be sharing sensitive test results. * Chlamydia and Gonorrhoea, Amplified (08/23/2020 2:27 PM EDT) Chlamydia Trachomatis, DNA Probe NEGATIVE (NEG) [facility] Comment: No Chlamydia Trachomatis RNA detected in this patient's sample (REFERENCE RANGE/NORMAL VALUE: NOT DETECTED) Note: This test uses commodity broker- mediated amplification method to detect rRNA from C. Trachomatis URINE GC AMP PROBE NEGATIVE (NEG) [facility] Comment: No Neisseria Gonorrhoeae RNA detected in this patient's sample (REFERENCE RANGE/NORMAL VALUE: NOT DETECTED) NOTE: This test uses commodity broker-mediated amplification method to detect rRNA from N.Gonorrhoeae. [...] without risk of sexual abuse. Consult the [facility] if needed. Contact phone number . Therapeutic failure or success cannot be determined with the Aptima Combo2 assay since nucleic acid may persist following appropriate antimicrobial therapy. The Centers for Disease Control and Prevention (CDC) recommends confirmatory retesting using culture or a different nucleic acid amplification test when positive results occur, if indicated. Testing performed or reported by [facility], a Service of [facility], [facility] [place] [address] Thang De Los Santos MD, Facility Operations Manager Urine (Urine) 08/23/2020 2:2 7 PM EDT 08/23/2020 9:36 PM EDT us Roberta Barnhart MD LAB MICROBIOLOGY - GENERAL ORDER ALPHONSO Final Result [facility] from Last 3 Months or Most Recently Relevant to Health Maintenance Insurance [place] [employer] [facility] [address]
--- OUTSIDE RECORDS SUMMARY | 2024-12-24 09:08 | XMS_ITS | Clinical Summary ---
Author Organization [facility] [employer] [facility] lin Address [address] [facility] [place] [address] Care Team Providers Care Shake Backboard Notcher Name Role Phone No, Pcp PROFESSOR OF MUSICOLOGY Primary Care Provider Unavailabl e Social History [...] Adults 18 yrs or above (or HM Modifier)([facility]) 2019 Hepatitis C Virus Infection in Adolescents and Adults: Screening (or Modifier) ([facility]) 2019 SDOH Screening Reminder: Annually for all adults ([facility]) 2019 Tobacco Smoking Cessation: i n Adults excluding Women: Behavioral and Pharmacotherapy Interventions ([facility]) 2019 Cervical Cancer Screenin-65 yrs of age (or Modifier) 2022 Cervical Cancer Screening: Pap every 3 yrs pts age 21-65 2022 Cervical Cancer: Pap Screening with Modifier timing ([facility]) 2022 Cervical Cancer: hrHPV alone or with cotesting Pap for Pts 30-65yrs screening every 5yrs ([facility]) 2022 DTaP/Tdap/Td Vaccines ([facility]) (7 - Td or Tdap) 06/25/2022 06/25/2012, 10/03/2006, 07/17/2002, Additional history exists COVID-19 Vaccine Screening: Initial Series and Booster Status ([facility]) ( - 2023-25 season) 2024 Flu Vaccination: Yearly for ages 18mos through 64 years (or Modifier)([facility]) 12/11/2024 04/21/2021 Zoster/Shingles Vaccine Series Screening: Adults aged 18+ yrs (or HM Modifiers)([facility]) (1 of 2) 2051 10/03/2006, 04/23/2002 Pneumococcal Vaccination Screening: Pts 0-19 & 19-49 yrs of age ([facility]) Aged Out 05/11/2020, 01/13/2003, 2001, Additional history exists No longer eligible based on patient's age to complete this topic Medical Devices Not on file Insurance [facility] Care Teams Shake Backboard Notcher Relationship Specialty Start Date End Date No, Pcp, PROFESSOR OF MUSICOLOGY N/A Do not use PCP - General Family Medicine 03/11/20
--- OUTSIDE RECORDS SUMMARY | 2024-12-24 09:08 | XMS_ITS ---
Author Name [facility] Organization Unknown Encounters Encounter Type Encounter Reason Primary Diagnosis Location Date Inpatient Type 1 diabetes mellitus with ketoacidosis without coma Type 1 diabetes mellitus with ketoacidosis without coma [id number] 03/29/2023 Care Team Organization Name Specialty Phone Email Start Date End Da te [id number] 06/02/2023 [id number] 03/29/2023 07/29/2024 [id number] NO PCP Primary Care 03/29/2023 03/29/2023
--- OUTSIDE RECORDS SUMMARY | 2024-12-24 09:08 | XMS_ITS | Clinical Summary ---
Author Organization [facility], Address [address] [place] [address] [place] [address] Phone Care Team Providers Care Presser Machine Name Role Phone Unavailable Primary Care Provider [...] Visual Foot Exam 06/13/2020 Influenza Vaccine (#1) 2025 Insurance Comprehensive Benefits Comprehensive Benefits
--- OUTSIDE RECORDS SUMMARY | 2024-12-24 09:08 | XMS_ITS | Clinical Summary ---
Author Organization [facility] Address [address] [place] [address] Phone Care Team Providers Care Osha Inspector Name Role Phone Tere Plascencia Primary Care [...] of Treatment Not on file Care Teams Osha Inspector Relationship Specialty Start Date End Date Tere Plascencia PCP - General 06/21/19 Tere Plascencia PCP - Clinical PCP 06/21/19
--- OUTSIDE RECORDS SUMMARY | 2024-12-24 09:08 | XMS_ITS | Clinical Summary ---
Author Organization [facility] Address [address] [place] [address] Care Team Providers Care Lead Burner Name Role Phone Pcp, No Primary Care Provider Unavailabl e Allergies No known active allergies Medications Continuous Blood Gluc Sensor (Dexcom G6 Sensor) [facility] USE TO MONITOR BLOOD SUGARS 03/28/20 Active Insulin Disposable Pump (Omnipod 5 G6 Pod, Gen 5,) [facility] 03/28/20 Active HumaLOG 100 UNIT/ML [...] Continuous Blood Gluc Transmit (Dexcom G6 Transmitter) [facility] 03/29/20 Active insulin glargine (LANtus/SEMGLEE) 100 units/mL [...] with type 1 diabetes mellitus (HCC) Waylon Rhodes 50 pen needle 03/31/20 Active Active Problems [...] 98 03/31/2023 3:00 PM EST Temperature 36.8 C (98.2 F) 03/31/2023 3:00 PM EST Respiratory Rate 18 03/31/2023 3:00 PM EST [...] 11.1(H) <5.7 % 03/30/2023 9:42 AM EST [facility] Comment: A1c% Interpretation 5.7 - 6.0 Increase risk of diabetes 6.1 - 6.4 Higher risk of diabetes > or = 6.5 Consistent with diabetes Diabetes Care, 33(Supp 1):S1-S61, 2010 Estimated Average Glucose 272 mg/dL 03/30/2023 9:42 AM [facility] Blood specimen (specimen) Blood specimen / Unknown 03/30/2023 4:02 AM EST 03/30/2023 4:07 AM EST Chung French PA-C LAB BLOOD ORDERABLES Fi nal Result [address] [address], [address] [id number] from Last 3 Months or Most Recently Relevant to Health Maintenance Insurance [employer] OUT OF STATE - PPO MEDICAID OUT OF STATE [facility] Advance Directives * Full Code (Latest Code Status on File) Date Activated Date Inactivated Comments 03/29/2023 4:28 AM Care Teams Lead Burner Relationship Specialty Start Date End Date Pcp, No [address] [place] [address] PCP - General 03/29/23
[2024-12-31 08:50] VITALS: BMI 40.2
== END 2024-12-24 09:46 | disposition home or self-care (01) ==
LOC: HO.ENCR 08:49
PROVIDERS: PCP Nurse Practitioner Family; Visit Provider Dietitian, Registered
DX: E10.9 Type 1 diabetes mellitus without complications (principal)

== ENCOUNTER → 2024-12-24 08:44 | Outpatient (BNVA) | payer OTHER, SELFPAY | PROVIDERS: PCP Nurse Practitioner Family; Visit Provider Dietitian, Registered | DX: E10.65 Type 1 diabetes mellitus with hyperglycemia (principal); E66.813 Obesity, class 3; Z68.41 Body mass index [BMI] 40.0-44.9, adult | CPT/HCPCS: 82947; 83036; 97803 ==

== ENCOUNTER 2024-12-24 14:18 | Outpatient (AMB) | payer OTHER, SELFPAY ==
--- NOTE | 2024-12-24 14:27 | MHC.OFFVIS ---
Vital Signs 12/24/24 14:28 Height 5 ft 2 in Weight 224 lb 10.417 oz BMI 41.1 BP 110/62 Blood Pressure Location Lt brachial Position Sitting Pulse 86 Pulse Source Pulse Oximeter Pulse Oximetry (%) 96 Oxygen Delivery Method Room Air Intake Visit Reasons: T1DM Intake Note: Patient present today for Type 1 Diabetes Mellitus Last Diabetic eye exam: Last eye exam was about a year and a half ago but has upcoming appt. Last Podiatry Visit: Doesn't have one Random Glucose: 134 mg/dl HgA1C: 9.8% Interface Developer Required: No Accompanied by: Self / Same As Patient Allergies No Known Allergies Allergy (Verified 12/24/24 14:33) Medication List - Last Reconciled 12/24/24 by Audelia Rajan MD acetone (urine) test (Ketone Urine Test strips) prn glucose over 250, nausea, vomiting, illness up to tid Baqsimi 3 mg/actuation (glucagon) 3 mg intranasal ONCE PRN 30 days MDD 6mg NS blood-glucose meter (Contour Next EZ Meter) As directed for use with strips blood-glucose sensor (Dexcom G7 Sensor device) As directed every 10 days clotrimazole-betamethasone 1-0.05 % 1 appl topical BID 7 days Contour Next Test Strips (blood sugar diagnostic) As directed up to 4 times daily prn sensor failure or to confirm glucose sensor reading NS Dexcom G6 Sensor (blood-glucose sensor) As directed every 10 days NS Dexcom G6 Transmitter (blood-glucose transmitter) As every 3 months for use with dexcom sensor NS Humalog U-100 Insulin (insulin lispro) up to 70 units daily via pump subcutaneously use as directed; 30 days MDD 70 units NS lancets (Microlet Lancet) up to 4 times daily to confirm sensor reading/use when sensor not avail Lantus Solostar U-100 Insulin (insulin glargine) 18 units (0.18 mL) subcut DAILY PRN 30 days MDD 18 units NS levonorgestrel (Mirena) intrauterine multivitamin 1 tab PO DAILY Omnipod 5 G6-G7 Pods (Gen 5) (insulin pump cart,auto,BT,G6/7) As directed every 3 days NS terconazole 0.4% 1 appful vaginal BEDTIME 7 days HPI Comments Details: 24-year-old female who is seen in f/u for type 1 diabetes. Last seen 09/22/2024 with Tamra Sharp BERE. History of diabetes She was followed by pediatric endo at [facility] until 09/11 5and is on an Omnipod pump. At her initial visit in August 2024, her pump was on manual mode and she was not entering carbohydrate g. At the time of the visit she was instructed to go back to auto mode and to enter all of her carbohydrates pre meal in order to get an appropriate level of preprandial insulin. Initially diagnosed with T1dm at age [age] years old Was initially started on treatment with: started on insulin injections started on a pump approx 2023/ Omnipod G6 Pre pump A1C's 12%, post pump 9% done fall 2023 Random Glucose: 134 mg/dl HgA1C: 9.8% 12/24/24 POC 11.3 % 08/23/24 Omnipod 5 with Dexcom G7 data downloaded from December 11 to 12/24/2024 G GA 9.2% Average glucose 245 mg/dL Time CGM active 88.7% Standard deviation 104 mg/dL Coefficient of variation 42.3% Within target range 34% High 20% Very high 45% Low 1% Very low 0% In automated mode 92% Manual mode 8% Insulin use total insulin per day 79.3 units Basal units 57.3 units per day (72%) Bolus per day 22 units (48%) Carbs per day 60 g Increase per day 1.3 Mostly above target range 13:00 onwards up until 03:00 at night. Pump settings Basal rate(s) (units/hour) : 12 AM to 12 AM 1.4 units / hr Bolus setting Insulin Carbohydrate Ratio (s) 12 AM to 12 AM ? 1:4.5 Correction Factor / Sensitivity Factor 12 AM to 12 AM ? 1:30 Active Insulin Time:? 2 hours Target(s): 12 AM? to 9 AM 120 mg/dL 9 AM to 12 AM 110 mg/dL Correction threshold: 12 AM? to 9 AM 120 mg/dL 9 AM to 12 AM 110 mg/dL Treats lows with juice box. caries juice or skittles with her Family history of T1dm .great maternal aunt with type 1 No retinopathy: eyes checked yearly, last eye exam summer 2023, surgery 2 years ago cataract will schedule f/u Denies neuropathy: has foot drop Had kidney failure in 2019 related to sepsis was on HD for a short time Has HLD, not on statin Denies CAD. She was hospitalized in 2020 with septic shock diabetic coma, ATN. She was seen at vascular at [facility] after this time due to footdrop. DKA 5 years ago, 2 episodes of DKA Diet: Can count carbs pump report shows no entries Weigtt: Gained 20 lb in the past 1 year over Current BMI 41.1 kg per m2, weight 224 lb She is seeing the executive talent acquisition consultant Exercise: Walks 15 minutes twice a day diabetes education: has been to dm education Physical exam General: sitting comfortably in no acute distress HEENT: normocephalic/atraumatic,, moist oral mucosa Neck: supple, Cardiac: normal heart sounds Pulm: normal breath sounds B/L, no added breath sounds Abd: not distended, no tenderness Extremities: no edema, no signs of myxedema Neuro: AAO x3, Speech: normal, no facial droop, moving all 4 extremities Skin: no rash Laboratory Tests 04/17/23 07/01/23 09/09/24 12:10 08:54 15:15 Hgb 12.0 Hct 40.9 Plt Count 355 D Glucose (Clinic) Hgb A1c (Clinic) 11.3 H Triglycerides 99 Cholesterol 174 LDL Cholesterol, Calc 97 HDL Cholesterol 58 TSH 4.24 H Free T4 0.83 Urine Creatinine 182.89 Urine Microalbumin 11.0 Microalb/Creat Ratio 6.0 09/22/24 08:04 Hgb Hct Plt Count Glucose (Clinic) 107 Hgb A1c (Clinic) Triglycerides Cholesterol LDL Cholesterol, Calc HDL Cholesterol TSH Free T4 Urine Creatinine Urine Microalbumin Microalb/Creat Ratio [facility] Medical History Emphysematous cystitis Diabetic coma Migraine with aura Diabetes mellitus Kidney failure Surgical History History of cataract removal with insertion of prosthetic lens H/O right heart catheterization Family History Sister Depression Anxiety Bipolar 1 disorder Mother Alcohol abuse Father Alcohol abuse Other Substance abuse Social History (System 12/17/24 @ 13:08 by Kristin Dunbar) Housing: House Alcohol intake: never Patient Tobacco Use Status: Never used Tobacco e-Cigarette/Vaping Use: Never Used service: No Current occupational status: unemployed Sexual orientation: Straight/Heterosexual Gender identity: Female Cognitive needs: No Hearing needs: No Vision needs: Yes Female Reproductive History Menstrual Age of Menarche: 13 Physical Exam Vital Signs: Last Vital Signs Pulse 86 12/24/24 14:28 BP 110/62 12/24/24 14:28 Pulse Ox 96 12/24/24 14:28 Oxygen Delivery Method Room Air 12/24/24 14:28 BMI result Body Mass Index 41.1 Office Procedures Glucose Monitoring Details Details: See [facility] [address] - Glucose monitoring, continuous-physician I&R Procedure code (CPT) selection complete Results AMB Hemoglobin A1c AMB Hemoglobin A1c 9.8 % Last Edit by ABIEL Billingsley on 12/24/24 14:45 Results Reviewed Results Reviewed: Laboratory Last Values Glucose (Clinic) 134 mg/dL (60-115) H 12/24/24 14:35 Hgb A1c (Clinic) 9.8 % (4.0-6.0) H 12/24/24 14:38 Assessment & Plan Assessment & Plan (1) Type 1 diabetes: Code(s): E10.9 - Type 1 diabetes mellitus without complications Category: Medical Qualifiers: Diabetes mellitus complication status: with hyperglycemia Qualified Code(s): E10.65 - Type 1 diabetes mellitus with hyperglycemia Plan: 24-year-old female with type 1 diabetes mellitus on Omnipod 5 insulin pump with Dexcom G6. She was supposed to transition to Dexcom G7. However prescription was sent with patient has not picked it up. I told her to call the pharmacy and find out about her sensors. If she has a issues with transitioning she can also schedule a follow up appointment with the educator. A1c 12/24/2024 today at 9.8% which is down from 11.5% in August 2024 however still much above her target. Discussed risk of hyperglycemia with the risk of complications. Dexcom G6 data downloaded which still shows she is barely and trying any carbs. Educated about importance of bolusing. She is hyperglycemic throughout the day because of not entering carbs. Based on her total daily dose her insulin sensitivity factor is also lower , I will adjusted a little bit. Plan: -educated about pre bolusing with meals -update to Dexcom G7 sensor -new insulin pump settings in bold Basal rate(s) (units/hour) : 12 AM to 12 AM 1.4 units / hr Bolus setting Insulin Carbohydrate Ratio (s) 12 AM to 12 AM ? 1:4.5 Correction Factor / Sensitivity Factor 12 AM to 12 AM ?01:25 from 1:30 Active Insulin Time:? 2 hours Target(s): 12 AM? to 9 AM 120 mg/dL 9 AM to 12 AM 110 mg/dL Correction threshold: 12 AM? to 9 AM 120 mg/dL 9 AM to 12 AM 110 mg/dL -due for eye visit, total to make appointment -due for repeat labs, ordered (2) Obesity: Code(s): E66.9 - Obesity, unspecified Category: Medical Qualifiers: Obesity type: due to excess calories Obesity classification: adult class 3 (BMI >= 40) Body mass index: BMI 40.0-44.9 Serious obesity comorbidity presence: with serious comorbidity Qualified Code(s): E66.813 - Obesity, class 3; Z68.41 - Body mass index [BMI] 40.0-44.9, adult Plan: Class 3 obesity, with current BMI 41.1 kg per m2 She has gained 20 lb over the past 1 year She walks 15 minutes twice a day. Currently seeing the executive talent acquisition consultant. She would be an excellent candidate for a GLP 1 agonist. Or a combined GLP 1/GI P agonist. No history of pancreatitis, denies alcohol use, no history of gallstones, no family history of thyroid cancer. Discussed with her side effects of GI intolerance, risk of pancreatitis and medullary thyroid cancer in rodents Plan: -start Zepbound 2.5 mg weekly injection Plan I spent 30 minutes in reviewing the record, seeing the patient and documenting in the medical record. Orders: Orders AMB Hemoglobin A1c Today E10.9 - Type 1 diabetes mellitus without complications, Z13.9 - Encounter for screening, unspecified Thyroid Stimulating Hormone Today E10.9 - Type 1 diabetes mellitus without complications Lipid Panel Today E10.9 - Type 1 diabetes mellitus without complications Microalbumin, Random (w Creat) Today E10.9 - Type 1 diabetes mellitus without complications Free T4 (Free Thyroxine) Today E10.9 - Type 1 diabetes mellitus without complications Creatinine Today E10.9 - Type 1 diabetes mellitus without complications Aspartate Amino Transferase Today E10.9 - Type 1 diabetes mellitus without complications Complete Blood Count no Diff Today E10.9 - Type 1 diabetes mellitus without complications Alanine Aminotransferase Today E10.9 - Type 1 diabetes mellitus without complications AMB Glucose Monitoring Today E10.9 - Type 1 diabetes mellitus without complications Medications: New tirzepatide (weight loss) (Zepbound) for 4 weeks 2.5 mg (0.5 mL) subcut QWEEK 2 mL 4RF E66.9 - Obesity, unspecified Patient Instructions: Do fasting blood work and urine test before next visit Call pharmacy to get Dexcom g7 sensors and see antonina for the switch Start Zepbound 2.5 mg weekly injection Rule of 15 Treatment for Hypoglycemia (Low blood sugar) If your blood glucose is low (70 and below)*, follow the steps below to treat: Eat or drink something from the list below equal to 15 grams of carbohydrate (carb). Rest for 15 minutes Re-check your blood glucose. If it is still low, (below 70), repeat step 1 above. ? If your next meal is more than an hour away, you will need to eat one carbohydrate choice as a snack to keep your blood glucose from going low again. ?If you can't figure out why you have low blood glucose, call your healthcare provider, as your medicine may need to be adjusted. ?Always carry something with you to treat an insulin reaction. Use food from the list below. ? Foods equal to One Carbohydrate Choice (15 grams of carbohydrate): 3 Glucose ?tablets or 4 Dextrose tablets 4 ounces of fruit juice 5-6 ounces (about 1/2 can) of regular soda such as Coke or Pepsi ? 7-8 gummy or regular Life Savers ? 1 Tbsp. of sugar or jelly NOTE: If your blood sugar is less than 50, double the portion above for a total of 30 gm. ?Carbohydrate. ? Follow meal plan of 45-60 g of consistent carbohydrates at 3 meals each day and 15 g of carbohydrate at 1-2 snacks each day. Coding Level of Care Code Est Pt Level 4 (96489) Diagnoses Type 1 diabetes mellitus with hyperglycemia E10.65 Diabetes mellitus complication status: with hyperglycemia Class 3 severe obesity due to excess calories with serious comorbidity and body mass index (BMI) of 40.0 to 44.9 in adult E66.813; Z68.41 Obesity type: due to excess calories Obesity classification: adult class 3 (BMI >= 40) Body mass index: BMI 40.0-44.9 Serious obesity comorbidity presence: with serious comorbidity CPT Codes Details - CPT: 86750 - Glucose monitoring, continuous-physician I&R ([id number]) Time Spent (min) 30
[2024-12-24 14:28] VITALS: BP 110/62; PULSE 86; O2SAT 96; BMI 41.1
[2024-12-24 14:40] LABS: Glucose, Whole Blood 134 mg/dL (60-115)
== END 2024-12-24 15:12 | disposition home or self-care (01) ==
LOC: HO.ENCR 14:19
PROVIDERS: PCP Nurse Practitioner Family; Visit Provider Student in an Organized Health Care Education/Training Program
DX: E10.65 Type 1 diabetes mellitus with hyperglycemia (principal); E66.813 Obesity, class 3; Z68.41 Body mass index [BMI] 40.0-44.9, adult; Z13.9 Encounter for screening, unspecified; E10.9 Type 1 diabetes mellitus without complications
CPT/HCPCS: 95251; 99214

== ENCOUNTER 2025-01-13 07:50 | Outpatient (REF) | payer OTHER, MEDICAID, SELFPAY ==
--- OUTSIDE RECORDS SUMMARY | 2025-01-13 07:58 | XMS_ITS | Clinical Summary ---
Author Organization [facility] Address [address] [place] [address] Phone Care Team Providers Care Graduate Advisor Name Role Phone Tere Plascencia Primary Care [...] of Treatment Not on file Care Teams Graduate Advisor Relationship Specialty Start Date End Date Tere Plascencia PCP - General 06/21/19 Tere Plascencia PCP - Clinical PCP 06/21/19
--- OUTSIDE RECORDS SUMMARY | 2025-01-13 07:58 | XMS_ITS | Clinical Summary ---
Author Organization [facility], Address [address] [place] [address] [place] [address] Phone Care Team Providers Care Film Developing Machine Operator Name Role Phone Unavailable Primary Care [...]
--- OUTSIDE RECORDS SUMMARY | 2025-01-13 07:58 | XMS_ITS | Clinical Summary ---
Author Organization [facility] lin Address [address] [facility] [place] [address] Care Team Providers Care Buggyman Name Role Phone No, Pcp FLUORESCENT LAMP REPLACER Primary Care Provider Unavailabl e Social History [...] Adults 18 yrs or above (or HM Modifier)([facility]) 2019 Hepatitis C Virus Infection in Adolescents and Adults: Screening (or Modifier) ([facility]) 2019 SDOH Screening Reminder: Annually for all adults ([facility]) 2019 Tobacco Smoking Cessation: i n Adults excluding Women: Behavioral and Pharmacotherapy Interventions ([facility]) 2019 Cervical Cancer Screenin-65 yrs of age (or Modifier) 2022 Cervical Cancer Screening: Pap every 3 yrs pts age 21-65 2022 Cervical Cancer: Pap Screening with Modifier timing ([facility]) 2022 Cervical Cancer: hrHPV alone or with cotesting Pap for Pts 30-65yrs screening every 5yrs ([facility]) 2022 DTaP/Tdap/Td Vaccines ([facility]) (7 - Td or Tdap) 06/25/2022 06/25/2012, 10/03/2006, 07/17/2002, Additional history exists Flu Vaccination: Yearly for ages 18mos through 64 years (or Modifier)([facility]) 12/11/2024 04/21/2021 Zoster/Shingles Vaccine Series Screening: Adults aged 18+ yrs (or HM Modifiers)([facility]) (1 of 2) 2051 10/03/2006, 04/23/2002 Pneumococcal Vaccination Screening: Pts 0-19 & 19-49 yrs of age ([facility]) Aged Out 05/11/2020, 01/13/2003, 2001, Additional history exists No longer eligible based on patient's age to complete this topic Medical Devices Not on file Insurance [employer] Care Teams Buggyman Relationship Specialty Start Date End Date No, Pcp, FLUORESCENT LAMP REPLACER N/A Do not use PCP - General Family Medicine 03/11/20
--- OUTSIDE RECORDS SUMMARY | 2025-01-13 07:58 | XMS_ITS | Encounter Summary ---
Author Organization [facility] Address [address] [place] [address] Phone Care Team Providers Care Sign Out Clerk Name Role Phone Lyly Barroso MD Primary Care Provider [phone] Reason for Visit * Reason Comments Med Refill Encounter Details Date Type Department Care Team (Late st Contact Info) Description 08/31/2020 Refill [facility] [address], [place] [id number] Torrie Sheikh NP [address] [place] [address] Oral contraception initiation Social History Tobacco Use [...] AM EDT Refill request for Larissia Last [facility] was 08/23/20 Please review documented in this encounter Plan of Treatment Not on file documented as of this encounter Visit Diagnoses Diagnosis Oral contraception initiation documented in this encounter Care Teams Sign Out Clerk Relationship Specialty Start Date End Date Lyly Barroso MD [address] [facility] [place] [address] PCP - General Pediatrics 06/25/22 03/31/24 documented as of this encounter
--- OUTSIDE RECORDS SUMMARY | 2025-01-13 07:58 | XMS_ITS | Encounter Summary ---
Author Organization [facility] Address [address] [place] [address] Phone Care Team Providers Care Climatology Teacher Name Role Phone Lyly Barroso MD Primary Care Provider Reason for Visit * Reason Comments Med Refill Encounter Details Date Type Department Care Team (Late st Contact Info) Description 05/10/2021 [facility]ill [facility] [address] [address] Roberta Barnhart MD Oral contraception initiation Social [...] initiation documented in this encounter Care Teams Climatology Teacher Relationship Specialty Start Date End Date Lyly Barroso MD [address] [place] [address] PCP - General Pediatrics 06/25/22 03/31/24 documented as of this encounter
--- OUTSIDE RECORDS SUMMARY | 2025-01-13 07:58 | XMS_ITS | Encounter Summary ---
Author Organization [facility] Address [address] [place] [address] Phone Care Team Providers Care Hospice Superintendent Name Role Phone Lyly Barroso MD Primary Care Provider [phone] Reason for Visit * Reason Comments Med Refill Encounter Details Date Type Department Care Team (Late st Contact Info) Description 10/04/2022 Refill [facility] [address] [address] Roberta Barnhart MD Depression, unspecified depression type [...] type documented in this encounter Care Teams Hospice Superintendent Relationship Specialty Start Date End Date Lyly Barroso MD [address] [facility] [place] [address] PCP - General Pediatrics 06/25/22 03/31/24 documented as of this encounter
--- OUTSIDE RECORDS SUMMARY | 2025-01-13 07:58 | XMS_ITS | Clinical Summary ---
Author Organization [facility] Address [address] [place] [address] Care Team Providers Care Mental Health Director Name Role Phone Unavailable Primary Care Provider [...] Cervical Cancer Screening: P ap Smear 2022 Depression Screening 05/13/2024 COVID-19 Vaccine (1 - 2023-2 5 season) 2025 Influenza Vaccine (#1) 2025 HIB Vaccines Aged [...] Documents on File Type Date Recorded Patient Soldering Machine Operator Automatic Expl anation Health Care Decision (hx) 08/21/2019 AD PATINO DIRECTIVE Health Care Decision (hx) 08/10/2019 AD PATINO DIRECTIVE
--- OUTSIDE RECORDS SUMMARY | 2025-01-13 07:58 | XMS_ITS | Clinical Summary ---
Author Organization [facility] Address [address] [place] [address] Phone Care Team Providers Care Quality Process Auditor Name Role Phone Unavailable Primary Care Provider Unavailabl e Allergies No known active allergies Medications Insulin Lispro 100 UNIT/ML solution cartridge HUMALOG; Active Acti ve insulin glargine 100 UNIT/ML injection LANTUS; Active Activ e Continuous Blood Gluc First Aid Nurse (DEXCOM G6 DIRECTOR OF REVENUE CYCLE MANAGEMENT) device U UTD TO MONITOR BLOOD GLUCOSE [...] 08/30/2019 Overview (10/29/2019): 10/27/19: Pedi Neurology at [facility] ( telemedicine)- unclear if neurologic deficits can be entirely explained by myasthenia gravis: increase of Mestinon made, taper GBP f/u in 3 mo at which time will recheck labs and consider rpt EMG Assessment & Plan (08/24/2020 8:17 AM EDT): Followed by neurology at [facility]- is off gabapentin. Happy with dramatic [...] time- was getting weekly EKGs at [facility] Attention-deficit hyperactiv ity disorder, predominantly inattentive type [...] AM EDT): [place] [facility] [place] Assessment & Plan (08/30/2019 7:54 AM EDT): DKA on 06/08/19- [place] [facility] [place] currently in good [...] 08/24/2020 Overview (09/24/2019): 09/23/19: [facility] ([facility])- needs rpt sleep study- mom requesting to do at [facility] [place], PFTs ( when clear to come back for inpatient visit) and given Rx for albuterol prn Influenza B 08/30/2019 08/24/2020 Overview (08/30/2019): Admission on June 08, 2019 [place] [facility] [place] Assessment & Plan (08/30/2019 7:51 AM EDT): Complex prolonged hospitalization from June 08, 2019 through 08/07/19 with rehabilitation at [facility] from 08/07/19 until 08/19/19 Anemia 02/14/2017 08/24/2020 [...] Additional history exists Procedures * Due to [place] law, this organization might not be sharing sensitive test results. Procedure Name Priority Date/Time Associated Diagnosis Comments CHLAMYDIA AND GONORRHEA, AMPLIFIED Routine 08/23/2020 2:27 PM EDT Encounter for screening examination for sexually transmitted disease from Last 3 Months or Most Recently Relevant to Health Maintenance Results * Due to [place] law, this organization might not be sharing sensitive test results. * Chlamydia and Gonorrhoea, Amplified (08/23/2020 2:27 PM EDT) Chlamydia Trachomatis, DNA Probe NEGATIVE (NEG) [facility] Comment: No Chlamydia Trachomatis RNA detected in this patient's sample (REFERENCE RANGE/NORMAL VALUE: NOT DETECTED) Note: This test uses automatic screwmaker- mediated amplification method to detect rRNA from C. Trachomatis URINE GC AMP PROBE NEGATIVE (NEG) [facility] Comment: No Neisseria Gonorrhoeae RNA detected in this patient's sample (REFERENCE RANGE/NORMAL VALUE: NOT DETECTED) NOTE: This test uses automatic screwmaker-mediated amplification method to detect rRNA from N.Gonorrhoeae. [...] risk of sexual abuse. Consult the [facility] if needed. Contact phone number . Therapeutic failure or success cannot be determined with the Aptima Combo2 assay since nucleic acid may persist following appropriate antimicrobial therapy. The Centers for Disease Control and Prevention (CDC) recommends confirmatory retesting using culture or a different nucleic acid amplification test when positive results occur, if indicated. Testing performed or reported by [facility], a Service of [facility], [facility] [place] [address] Thang De Los Santos MD, Table Tender Urine (Urine) 08/23/2020 2:2 7 PM EDT 08/23/2020 9:36 PM EDT us Roberta Barnhart MD LAB MICROBIOLOGY - GENERAL ORDER ALPHONSO Final Result [facility] from Last 3 Months or Most Recently Relevant to Health Maintenance Insurance [employer] [facility]
--- OUTSIDE RECORDS SUMMARY | 2025-01-13 07:58 | XMS_ITS | Encounter Summary ---
Author Organization [facility] Address [address] [place] [address] Phone Care Team Providers Care Sugar Refinery Supervisor Name Role Phone Lyly Barroso MD Primary Care Provider [phone] Encounter Details Date Type Department Care Team (Late st Contact Info) Description 09/29/2017 Conversion Encounter [facility] [address] [place] [address] Yamileth Ray MD [address] [place] [address] Social History Tobacco Use Types Packs/Day Years [...] on filedocumented in this encounter Care Teams Sugar Refinery Supervisor Relationship Specialty Start Date End Date Lyly Barroso MD [address] [place] [address] PCP - General Pediatrics 06/25/22 03/31/24 documented as of this encounter
[2025-01-13 08:43] LABS: Hematocrit 45.7 % (37.0-47.0); Hemoglobin 13.5 g/dl (12.0-16.0); Mean Corpuscular HGB Conc 29.5 g/dl (31.0-35.0); Mean Corpuscular Hemoglobin 23.9 pg (27.0-33.0); Mean Corpuscular Volume 81.0 fL (80.0-98.0); NRBC Abs Auto 0.000 X10*3/uL (0.0-0.012); NRBC Pct Auto 0.0 /100WBC (0.0-0.2); Platelet Count 318 X10*3/uL (160-400); Red Blood Count 5.64 X10*6/uL (4.20-5.50); White Blood Count 9.7 X10*3/uL (4.8-10.8)
[2025-01-13 09:30] LABS: Alanine Aminotransferase 16 U/L (0-31); Aspartate Amino Transferase 24 U/L (5-31); Cholesterol 170 mg/dL (<200); Estimated Glomerular Filt Rate > 60; HDL Cholesterol 67 mg/dL (>40); Triglycerides 82 mg/dL (<150)
[2025-01-13 09:39] LABS: Free T4 (Free Thyroxine) 0.86 ng/dL (0.71-1.85); Thyroid Stimulating Hormone 3.95 uIU/mL (0.32-4.0)
[2025-01-13 09:48] LABS: Microalbum/Creatinine Ratio Ur 8.8 ug/mg cr (<30)
== END 2025-01-13 07:51 | disposition home or self-care (01) ==
LOC: HO.LAB 07:50
PROVIDERS: PCP Nurse Practitioner Family; Visit Provider Student in an Organized Health Care Education/Training Program
DX: E10.9 Type 1 diabetes mellitus without complications (principal)
CPT/HCPCS: 36415; 80061; 82043; 82565; 82570; 84439; 84443; 84450; 84460; 85027

== ENCOUNTER 2025-01-22 10:30 | Outpatient (AMB) | payer OTHER, MEDICAID, SELFPAY ==
--- NOTE | 2025-01-22 10:41 | MHC.OFFVIS ---
Vital Signs 01/22/25 10:42 Height 5 ft 2 in Weight 229 lb 4.492 oz BMI 41.9 BP 94/62 Blood Pressure Location Lt brachial Position Sitting Pulse 89 Pulse Source Pulse Oximeter Pulse Oximetry (%) 92 Oxygen Delivery Method Room Air Intake Visit Reasons: T1DM Intake Note: Patient present today for Type 1 Diabetes Mellitus Last Diabetic eye exam: Last exam was in 2023 but will be scheduling one for this year Last Podiatry Visit: Doesn't have one Random Glucose: 185 mg/dl HgA1C: 9.8% 12/24/24 Board Mill Supervisor Required: No Accompanied by: Self / Same As Patient Allergies No Known Allergies Allergy (Verified 01/22/25 10:46) Medication List - Last Reconciled 01/22/25 by Audelia Rajan MD acetone (urine) test (Ketone Urine Test strips) prn glucose over 250, nausea, vomiting, illness up to tid Baqsimi 3 mg/actuation (glucagon) 3 mg intranasal ONCE PRN 30 days MDD 6mg NS blood-glucose meter (Contour Next EZ Meter) As directed for use with strips blood-glucose sensor (Dexcom G7 Sensor device) As directed every 10 days clotrimazole-betamethasone 1-0.05 % 1 appl topical BID 7 days Contour Next Test Strips (blood sugar diagnostic) As directed up to 4 times daily prn sensor failure or to confirm glucose sensor reading NS Dexcom G6 Sensor (blood-glucose sensor) As directed every 10 days NS Dexcom G6 Transmitter (blood-glucose transmitter) As every 3 months for use with dexcom sensor NS Humalog U-100 Insulin (insulin lispro) up to 70 units daily via pump subcutaneously use as directed; 30 days MDD 70 units NS lancets (Microlet Lancet) up to 4 times daily to confirm sensor reading/use when sensor not avail Lantus Solostar U-100 Insulin (insulin glargine) 18 units (0.18 mL) subcut DAILY PRN 30 days MDD 18 units NS levonorgestrel (Mirena) intrauterine multivitamin 1 tab PO DAILY Omnipod 5 G6-G7 Pods (Gen 5) (insulin pump cart,auto,BT,G6/7) As directed every 3 days NS terconazole 0.4% 1 appful vaginal BEDTIME 7 days tirzepatide (weight loss) (Zepbound) 2.5 mg (0.5 mL) subcut QWEEK HPI Comments Details: 24-year-old female who is seen in f/u for type 1 diabetes mellitus. Last seen 09/22/2024 with Tamra Sharp APRN. History of diabetes She was followed by pediatric endo at [facility] until 09/11 5and is on an Omnipod pump. At her initial visit in August 2024, her pump was on manual mode and she was not entering carbohydrate g. At the time of the visit she was instructed to go back to auto mode and to enter all of her carbohydrates pre meal in order to get an appropriate level of preprandial insulin. Initially diagnosed with T1dm at age [age] years old Was initially started on treatment with: started on insulin injections started on a pump approx 2023/ Omnipod G6 updated to Dexcom G7 December 2024 Pre pump A1C's 12%, post pump 9% done fall 2023 Random Glucose: 134 mg/dl HgA1C: 9.8% 12/24/24 POC 11.3 % 08/23/24 Downloaded from December 2037 to 01/22/2025 Time CGM active 83.4% G NH non applicable Coefficient of variation 44.9% Within target range 37% High 15% Very high 47% Low 1% Very low 0% Interpretation: She is still running hyperglycemic in the day because she is not entering any carbs on Most days Insulin usage Insulin per day 70.9 units Basal per day 50.5 units, 71% Bolus per day 20.4 units, 29% In automated mode 78% Carbs per day 53.4 g Increase per day 1.6 Pump settings Basal rate(s) (units/hour) : 12 AM to 12 AM 1.4 units / hr Bolus setting Insulin Carbohydrate Ratio (s) 12 AM to 12 AM ? 1:4.5 Correction Factor / Sensitivity Factor 12 AM to 12 AM ? 1:25 Active Insulin Time:? 2 hours Target(s): 12 AM? to 9 AM 120 mg/dL 9 AM to 12 AM 110 mg/dL Correction threshold: 12 AM? to 9 AM 120 mg/dL 9 AM to 12 AM 110 mg/dL Treats lows with juice box. caries juice or skittles with her Family history of T1dm .great maternal aunt with type 1 No retinopathy: eyes checked yearly, last eye exam summer 2023, surgery 2 years ago cataract will schedule f/u Denies neuropathy: has foot drop Had kidney failure in 2019 related to sepsis was on HD for a short time, EGFR greater than 60, 01/13/2025, normal urine microalbumin to creatinine ratio 01/13/2025 Has HLD, not on statin , LDL 87 mg/dL 01/13/2025 Denies CAD. She was hospitalized in 2019 with septic shock diabetic coma, ATN. She was seen at vascular at [facility] after this time due to footdrop. DKA 5 years ago, 2 episodes of DKA Diet: Can count carbs pump report shows no entries Weigtt: Gained 20 lb in the past 1 year over Current BMI 41.9 kg per m2, weight 229 lb She is seeing the solar energy sales specialist Exercise: Walks 15 minutes twice a day diabetes education: has been to dm education Physical exam General: sitting comfortably in no acute distress HEENT: normocephalic/atraumatic,, moist oral mucosa Neck: supple, Cardiac: normal heart sounds Pulm: normal breath sounds B/L, no added breath sounds Abd: not distended, no tenderness Extremities: no edema, no signs of myxedema Neuro: AAO x3, Speech: normal, no facial droop, moving all 4 extremities Skin: no rash Laboratory Tests 04/17/23 07/01/23 09/09/24 12:10 08:54 15:15 Hgb 12.0 Hct 40.9 Plt Count 355 D Glucose (Clinic) Hgb A1c (Clinic) 11.3 H Triglycerides 99 Cholesterol 174 LDL Cholesterol, Calc 97 HDL Cholesterol 58 TSH 4.24 H Free T4 0.83 Urine Creatinine 182.89 Urine Microalbumin 11.0 Microalb/Creat Ratio 6.0 09/22/24 08:04 Hgb Hct Plt Count Glucose (Clinic) 107 Hgb A1c (Clinic) Triglycerides Cholesterol LDL Cholesterol, Calc HDL Cholesterol TSH Free T4 Urine Creatinine Urine Microalbumin Microalb/Creat Ratio Laboratory Tests 01/13/25 01/13/25 01/22/25 08:15 08:18 10:48 Creatinine 0.57 Estimated GFR > 60 Glucose (Clinic) 185 H AST 24 ALT 16 Triglycerides 82 Cholesterol 170 LDL Cholesterol, Calc 87 HDL Cholesterol 67 TSH 3.95 Free T4 0.86 Urine Creatinine 225.32 Urine Microalbumin 20.0 Microalb/Creat Ratio 8.8 [facility] Medical History (Updated 12/24/24 @ 15:17 by Audelia Rajan MD) Obesity Emphysematous cystitis Diabetic coma Migraine with aura Diabetes mellitus Kidney failure Surgical History History of cataract removal with insertion of prosthetic lens H/O right heart catheterization Family History Sister Depression Anxiety Bipolar 1 disorder Mother Alcohol abuse Father Alcohol abuse Other Substance abuse Social History Housing: House Alcohol intake: never Patient Tobacco Use Status: Never used Tobacco e-Cigarette/Vaping Use: Never Used service: No Current occupational status: unemployed Sexual orientation: Straight/Heterosexual Gender identity: Female Cognitive needs: No Hearing needs: No Vision needs: Yes Female Reproductive History Menstrual Age of Menarche: 13 Physical Exam Vital Signs: Last Vital Signs Pulse 89 01/22/25 10:42 BP 94/62 01/22/25 10:42 Pulse Ox 92 01/22/25 10:42 Oxygen Delivery Method Room Air 01/22/25 10:42 BMI result Body Mass Index 41.9 Office Procedures Glucose Monitoring Details Details: See HPI 73971 - Glucose monitoring, continuous-physician I&R Procedure code (CPT) selection complete Results Reviewed Results Reviewed: Laboratory Last Values Glucose (Clinic) 185 mg/dL (60-115) H 01/22/25 10:48 Assessment & Plan Assessment & Plan (1) Type 1 diabetes: Code(s): E10.9 - Type 1 diabetes mellitus without complications Category: Medical Qualifiers: Diabetes mellitus complication status: with hyperglycemia Qualified Code(s): E10.65 - Type 1 diabetes mellitus with hyperglycemia Plan: 24-year-old female with type 1 diabetes mellitus on Omnipod 5 insulin pump with Dexcom G7. A1c 12/24/2024 today at 9.8% which is down from 11.5% in August 2024 however still much above her target. Discussed risk of hyperglycemia with the risk of complications. Dexcom g7 data downloaded which still shows she is entering any carbs. Educated about importance of bolusing. She is hyperglycemic throughout the day because of not entering carbs. Also noted that her basal rate in manual mode currently does not reflect her basal usage which is a lot more than what her manual mode is suggesting. Increasing basal rate in manual mode to reflect more closely to what she is using. Plan: -educated about pre bolusing with meals -update to PermissionTV G7 sensor -new insulin pump settings in bold Basal rate(s) (units/hour) : 12 AM to 12 AM from 1.4 units / hr to 1.8 units/hour Bolus setting Insulin Carbohydrate Ratio (s) 12 AM to 12 AM ? 1:4.5 Correction Factor / Sensitivity Factor 12 AM to 12 AM ?01:25 from 1:30 Active Insulin Time:? 2 hours Target(s): 12 AM? to 9 AM 120 mg/dL 9 AM to 12 AM 110 mg/dL Correction threshold: 12 AM? to 9 AM 120 mg/dL 9 AM to 12 AM 110 mg/dL -due for eye visit, told her to make appointment (2) Obesity: Code(s): E66.9 - Obesity, unspecified Category: Medical Qualifiers: Obesity type: due to excess calories Obesity classification: adult class 3 (BMI >= 40) Serious obesity comorbidity presence: with serious comorbidity Body mass index: BMI 40.0-44.9 Qualified Code(s): E66.813 - Obesity, class 3; Z68.41 - Body mass index [BMI] 40.0-44.9, adult Plan: Class 3 obesity, with current BMI 41.9 kg per m2 She has gained 20 lb over the past 1 year She walks 15 minutes twice a day. Currently seeing the solar energy sales specialist. She would be an excellent candidate for a GLP 1 agonist. Or a combined GLP 1/GI P agonist. No history of pancreatitis, denies alcohol use, no history of gallstones, no family history of thyroid cancer. Discussed with her side effects of GI intolerance, risk of pancreatitis and medullary thyroid cancer in rodents Unfortunately Zepbound was denied by insurance January 2025 Plan I spent 30 minutes in reviewing the record, seeing the patient and documenting in the medical record. Orders: Orders AMB Glucose Monitoring Today E10.65 - Type 1 diabetes mellitus with hyperglycemia Coding Level of Care Code Est Pt Level 4 (11626) Diagnoses Type 1 diabetes mellitus with hyperglycemia E10.65 Diabetes mellitus complication status: with hyperglycemia Class 3 severe obesity due to excess calories with serious comorbidity and body mass index (BMI) of 40.0 to 44.9 in adult E66.813; Z68.41 Obesity type: due to excess calories Obesity classification: adult class 3 (BMI >= 40) Serious obesity comorbidity presence: with serious comorbidity Body mass index: BMI 40.0-44.9 CPT Codes Details - CPT: 73850 - Glucose monitoring, continuous-physician I&R ([id number]) Time Spent (min) 30
[2025-01-22 10:42] VITALS: BP 94/62; PULSE 89; O2SAT 92; BMI 41.9
[2025-01-22 10:52] LABS: Glucose, Whole Blood 185 mg/dL (60-115)
--- OUTSIDE RECORDS SUMMARY | 2025-01-22 12:08 | XMS_ITS | Clinical Summary ---
Author Organization [facility] Address [address] [place] [address] Phone Care Team Providers Care Smelter Operator Name Role Phone Tere Plascencia Primary [...] of Treatment Not on file Care Teams Smelter Operator Relationship Specialty Start Date End Date Tere Plascencia PCP - General 06/21/19 Tere Plascencia PCP - Clinical PCP 06/21/19
--- OUTSIDE RECORDS SUMMARY | 2025-01-22 12:08 | XMS_ITS | Clinical Summary ---
Author Organization [facility] & [facility] lin Address [address] [facility] [place] [address] Care Team Providers Care Shipwright Apprentice Name Role Phone No, Pcp INNOVATION MANAGER Primary Care Provider Unavailabl e Social History [...] Adults 18 yrs or above (or HM Modifier)([facility]) 2019 Hepatitis C Virus Infection in Adolescents and Adults: Screening (or Modifier) ([facility]) 2019 SDOH Screening Reminder: Annually for all adults ([facility]) 2019 Tobacco Smoking Cessation: i n Adults excluding Women: Behavioral and Pharmacotherapy Interventions ([facility]) 2019 Cervical Cancer Screenin-65 yrs of age (or Modifier) 2022 Cervical Cancer Screening: Pap every 3 yrs pts age 21-65 2022 Cervical Cancer: Pap Screening with Modifier timing ([facility]) 2022 Cervical Cancer: hrHPV alone or with cotesting Pap for Pts 30-65yrs screening every 5yrs ([facility]) 2022 DTaP/Tdap/Td Vaccines ([facility]) (7 - Td or Tdap) 06/25/2022 06/25/2012, 10/03/2006, 07/17/2002, Additional history exists Flu Vaccination: Yearly for ages 18mos through 64 years (or Modifier)([facility]) 12/11/2024 04/21/2021 COVID-19 Vaccine Screening: Initial Series and Booster Status ([facility]) (2023- season) 2025 Zoster/Shingles Vaccine Series Screening: Adults aged 18+ yrs (or HM Modifiers)([facility]) (1 of 2) 2051 10/03/2006, 04/23/2002 Pneumococcal Vaccination Screening: Pts 0-19 & 19-49 yrs of age ([facility]) Aged Out 05/11/2020, 01/13/2003, 2001, Additional history exists No longer eligible based on patient's age to complete this topic Medical Devices Not on file Insurance [facility] Care Teams Shipwright Apprentice Relationship Specialty Start Date End Date No, Pcp, INNOVATION MANAGER N/A Do not use PCP - General Family Medicine 03/11/20
--- OUTSIDE RECORDS SUMMARY | 2025-01-22 12:08 | XMS_ITS | Clinical Summary ---
Author Organization [facility] Address [address] [place] [address] Care Team Providers Care Buckle Strap Puncher Name Role Phone Unavailable Primary Care Provider [...] Documents on File Type Date Recorded Patient Svp Expl anation Health Care Decision (hx) 08/21/2019 AD PATINO DIRECTIVE Health Care Decision (hx) 08/10/2019 AD PATINO DIRECTIVE
--- OUTSIDE RECORDS SUMMARY | 2025-01-22 12:08 | XMS_ITS | Clinical Summary ---
Author Organization [facility], Address [address] [place] [address] [place] [address] Phone Care Team Providers Care Hand Coke Drawer Name Role Phone Unavailable Primary Care Provider [...]
--- OUTSIDE RECORDS SUMMARY | 2025-01-22 12:08 | XMS_ITS | Encounter Summary ---
Author Organization [facility] Address [address] [place] [address] Phone Care Team Providers Care Senior Software Qa Engineer Name Role Phone Lyly Barroso MD Primary Care Provider [phone] Reason for Visit * Reason Comments Med Refill Encounter Details Date Type Department Care Team (Late st Contact Info) Description 10/04/2022 [facility]ill [facility] [address] [address] Roberta Barnhart MD Depression, unspecified depression type [...] type documented in this encounter Care Teams Senior Software Qa Engineer Relationship Specialty Start Date End Date Lyly Barroso MD [address] [facility] [place] [address] PCP - General Pediatrics 06/25/22 03/31/24 documented as of this encounter
--- OUTSIDE RECORDS SUMMARY | 2025-01-22 12:08 | XMS_ITS | Encounter Summary ---
Author Organization [facility] Address [address] [place] [address] Phone Care Team Providers Care Campaign Associate Name Role Phone Lyly Barroso MD Primary Care Provider [phone] Reason for Visit * Reason Comments Med Refill Encounter Details Date Type Department Care Team (Late st Contact Info) Description 05/10/2021 [facility]ill [facility] [address] [address] Roberta Barnhart MD Oral contraception initiation Social [...] initiation documented in this encounter Care Teams Campaign Associate Relationship Specialty Start Date End Date Lyly Barroso MD [address] [facility] [place] [address] PCP - General Pediatrics 06/25/22 03/31/24 documented as of this encounter
--- OUTSIDE RECORDS SUMMARY | 2025-01-22 12:08 | XMS_ITS | Encounter Summary ---
Author Organization [facility] Address [address] [place] [address] Phone Care Team Providers Care Workforce Development Specialist Name Role Phone Lyly Barroso MD Primary Care Provider [phone] Reason for Visit * Reason Comments Med Refill Encounter Details Date Type Department Care Team (Late st Contact Info) Description 08/31/2020 [facility] [facility] [address] [place], [place] [id number] Torrie Sheikh NP [address] [place] [address] Oral contraception initiation Social History Tobacco Use [...] EDT Refill request for Larissia Last [facility] was 08/23/20 Please review documented in this encounter Plan of Treatment Not on file documented as of this encounter Visit Diagnoses Diagnosis Oral contraception initiation documented in this encounter Care Teams Workforce Development Specialist Relationship Specialty Start Date End Date Lyly Barroso MD [address] [facility] [place] [address] PCP - General Pediatrics 06/25/22 03/31/24 documented as of this encounter
--- OUTSIDE RECORDS SUMMARY | 2025-01-22 12:08 | XMS_ITS | Encounter Summary ---
Author Organization [facility] Address [address] [place] [address] Phone Care Team Providers Care Latex Spooler Name Role Phone Lyly Barroso MD Primary Care Provider [phone] Encounter Details Date Type Department Care Team (Late st Contact Info) Description 09/29/2017 Conversion Encounter [facility] [address] [place] [address] Yamileth Ray MD [address] [place] [address] Social History Tobacco Use Types Packs/Day Years [...] on filedocumented in this encounter Care Teams Latex Spooler Relationship Specialty Start Date End Date Lyly Barroso MD [address] [place] [address] PCP - General Pediatrics 06/25/22 03/31/24 documented as of this encounter
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
--- OUTSIDE RECORDS SUMMARY | 2025-01-22 12:08 | XMS_ITS | Clinical Summary ---
Author Organization [facility] Address [address] [place] [address] Care Team Providers Care Flame Cutting Supervisor Name Role Phone Pcp, No Primary Care Provider Unavailabl e Allergies No known active allergies Medications Continuous Blood Gluc Sensor (Dexcom G6 Sensor) [facility] USE TO MONITOR BLOOD SUGARS 03/28/20 Active Insulin Disposable Pump (Omnipod 5 G6 Pod, Gen 5,) [facility] 03/28/20 Active HumaLOG 100 UNIT/ML injection USE SUBCUTANEOUSLY VIA INSULIN PUMP. MAX DAILY DOSE 100 UNITS. 03/26/20 Active Insulin Disposable Pump (Omnipod 5 G6 Intro, Gen 5,) Kit 01/09/20 Active fluocinonide (LIDEX) 0.05 % external solution APPLY TWICE DAILY TO THE SCALP FOR 2 WEEKS ON, THEN TAKE 1 WEEK OFF. REPEAT NEEDED. 02/21/20 Active Continuous Blood Gluc Transmit (Dexcom G6 Transmitter) [facility] 03/29/20 Active insulin glargine (LANtus/SEMGLEE) 100 units/mL [...] 03/30/2023 9:42 AM EST [facility] Comment: A1c% Interpretation 5.7 - 6.0 Increase risk of diabetes 6.1 - 6.4 Higher risk of diabetes > or = 6.5 Consistent with diabetes Diabetes Care, 33(Supp 1):S1-S61, 2010 Estimated Average Glucose 272 mg/dL 03/30/2023 9:42 AM [facility] Blood specimen (specimen) Blood specimen / Unknown 03/30/2023 4:02 AM EST 03/30/2023 4:07 AM EST Chung French PA-C LAB BLOOD ORDERABLES Fi nal Result [address] [address], [address] [address] from Last 3 Months or Most Recently Relevant to Health Maintenance Insurance [employer] OUT OF STATE - PPO MEDICAID OUT OF STATE [facility] Advance Directives * Full Code (Latest Code Status on File) Date Activated Date Inactivated Comments 03/29/2023 4:28 AM Care Teams Flame Cutting Supervisor Relationship Specialty Start Date End Date Pcp, No [address] [place] [address] PCP - General 03/29/23
== END 2025-01-22 11:26 | disposition home or self-care (01) ==
LOC: HO.ENCR 10:31
PROVIDERS: PCP Nurse Practitioner Family; Visit Provider Student in an Organized Health Care Education/Training Program
DX: E10.65 Type 1 diabetes mellitus with hyperglycemia (principal); E66.813 Obesity, class 3; Z68.41 Body mass index [BMI] 40.0-44.9, adult
CPT/HCPCS: 95251; 99214

== ENCOUNTER → 2025-01-22 10:30 | Outpatient (BNVA) | payer OTHER, MEDICAID, SELFPAY | PROVIDERS: PCP Nurse Practitioner Family; Visit Provider Student in an Organized Health Care Education/Training Program | DX: E10.65 Type 1 diabetes mellitus with hyperglycemia (principal) | CPT/HCPCS: 82947 ==

== ENCOUNTER 2025-02-18 12:26 | Outpatient (AMB) | payer OTHER, MEDICAID, SELFPAY ==
[2025-02-18 12:35] VITALS: BP 108/64; PULSE 93; O2SAT 97; BMI 42.3
--- NOTE | 2025-02-18 12:35 | A.OFFVIS_ITS ---
Vital Signs 3 02/18/25 12:35 Height 5 ft 2 in Weight 231 lb 7.766 oz BMI 42.3 BP 108/64 Blood Pressure Location Lt brachial Position Sitting Pulse 93 Pulse Source Pulse Oximeter Pulse Oximetry (%) 97 Oxygen Delivery Method Room Air Intake Visit Reasons: T1DM Intake Note: Patient present today for Type 2 Diabetes Mellitus Last Diabetic eye exam: Last exam was about 1 year ago. No appt scheduled for next exam. Last Podiatry Visit: Doesn't have one Random Glucose: 188 mg/dl HgA1C: 9.8% 12/24/24 Cathode Maker Required: No Accompanied by: Mother Allergies No Known Allergies Allergy (Verified 02/18/25 12:40) Medication List - Last Reconciled 02/18/25 by Audelia Rajan MD acetone (urine) test (Ketone Urine Test strips) prn glucose over 250, nausea, vomiting, illness up to tid Baqsimi 3 mg/actuation (glucagon) 3 mg intranasal ONCE PRN 30 days MDD 6mg NS blood-glucose meter (Contour Next EZ Meter) As directed for use with strips blood-glucose sensor (Dexcom G7 Sensor device) As directed every 10 days clotrimazole-betamethasone 1-0.05 % 1 appl topical BID 7 days Contour Next Test Strips (blood sugar diagnostic) As directed up to 4 times daily prn sensor failure or to confirm glucose sensor reading NS Dexcom G6 Sensor (blood-glucose sensor) As directed every 10 days NS Dexcom G6 Transmitter (blood-glucose transmitter) As every 3 months for use with dexcom sensor NS Humalog U-100 Insulin (insulin lispro) up to 70 units daily via pump subcutaneously use as directed; 30 days MDD 70 units NS lancets (Microlet Lancet) up to 4 times daily to confirm sensor reading/use when sensor not avail Lantus Solostar U-100 Insulin (insulin glargine) 18 units (0.18 mL) subcut DAILY PRN 30 days MDD 18 units NS levonorgestrel (Mirena) intrauterine multivitamin 1 tab PO DAILY Omnipod 5 G6-G7 Pods (Gen 5) (insulin pump cart,auto,BT,G6/7) As directed every 3 days NS terconazole 0.4% 1 appful vaginal BEDTIME 7 days tirzepatide (weight loss) (Zepbound) 2.5 mg (0.5 mL) subcut QWEEK HPI Comments Details: 24-year-old female who is seen in f/u for type 1 diabetes mellitus. Last seen 01/22/25 History of diabetes She was followed by pediatric endo at [facility] until 09/11 5and is on an Omnipod pump. At her initial visit in August 2024, her pump was on manual mode and she was not entering carbohydrate g. At the time of the visit she was instructed to go back to auto mode and to enter all of her carbohydrates pre meal in order to get an appropriate level of preprandial insulin. Initially diagnosed with T1dm at age [age] years old Was initially started on treatment with: started on insulin injections started on a pump approx 2023/ Omnipod G6 updated to Dexcom G7 December 2024 Pre pump A1C's 12%, post pump 9% done fall 2023 Random Glucose: 134 mg/dl HgA1C: 9.8% 12/24/24 POC 11.3 % 08/23/24 Omnipod 5 with Dexcom G7 data downloaded from February 05 to 02/18/2025 Time CGM active 85.1% Average glucose 212 mg/dL G ID not applicable Coefficient of variation 37.8% Within target range 43% High 23% Very high 34% Low 0% Very low 0% Interpretation: Still having a lot of postprandial hyperglycemia not entering any carbs. Insulin usage Total insulin per day 74.3 units Basal per day 53.9 units Bolus per day 20.4 units Carbs per day 80.4 g Entries per day 1.8 In automated mode 100% Pump settings Basal rate(s) (units/hour) : 12 AM to 12 AM 1.8 units / hr Bolus setting Insulin Carbohydrate Ratio (s) 12 AM to 12 AM ? 1:4.5 Correction Factor / Sensitivity Factor 12 AM to 12 AM ? 1:25 Active Insulin Time:? 2 hours Target(s): 12 AM? to 9 AM 120 mg/dL 9 AM to 12 AM 110 mg/dL Correction threshold: 12 AM? to 9 AM 120 mg/dL 9 AM to 12 AM 110 mg/dL Treats lows with juice box. caries juice or skittles with her Family history of T1dm .great maternal aunt with type 1 No retinopathy: eyes checked yearly, last eye exam summer 2023, surgery 2 years ago cataract will schedule f/u Denies neuropathy: has foot drop Had kidney failure in 2019 related to sepsis was on HD for a short time, EGFR greater than 60, 01/13/2025, normal urine microalbumin to creatinine ratio 01/13/2025 Has HLD, not on statin , LDL 87 mg/dL 01/13/2025 Denies CAD. She was hospitalized in 2019 with septic shock diabetic coma, ATN. She was seen at vascular at [facility] after this time due to footdrop. DKA 5 years ago, 2 episodes of DKA Diet: Can count carbs pump report shows no entries Weigtt: Gained 20 lb in the past 1 year over Current BMI 41.9 kg per m2, weight 229 lb She is seeing the vmware consultant Exercise: Walks 15 minutes twice a day diabetes education: has been to dm education Physical exam General: sitting comfortably in no acute distress Cardiac: normal heart rate Pulm: normal pulmonary effort Laboratory Tests 04/17/23 07/01/23 09/09/24 12:10 08:54 15:15 Hgb 12.0 Hct 40.9 Plt Count 355 D Glucose (Clinic) Hgb A1c (Clinic) 11.3 H Triglycerides 99 Cholesterol 174 LDL Cholesterol, Calc 97 HDL Cholesterol 58 TSH 4.24 H Free T4 0.83 Urine Creatinine 182.89 Urine Microalbumin 11.0 Microalb/Creat Ratio 6.0 09/22/24 08:04 Hgb Hct Plt Count Glucose (Clinic) 107 Hgb A1c (Clinic) Triglycerides Cholesterol LDL Cholesterol, Calc HDL Cholesterol TSH Free T4 Urine Creatinine Urine Microalbumin Microalb/Creat Ratio Laboratory Tests 01/13/25 01/13/25 01/22/25 08:15 08:18 10:48 Creatinine 0.57 Estimated GFR > 60 Glucose (Clinic) 185 H AST 24 ALT 16 Triglycerides 82 Cholesterol 170 LDL Cholesterol, Calc 87 HDL Cholesterol 67 TSH 3.95 Free T4 0.86 Urine Creatinine 225.32 Urine Microalbumin 20.0 Microalb/Creat Ratio 8.8 [facility] Medical History (Updated 12/24/24 @ 15:17 by Audelia Rajan MD) Obesity Emphysematous cystitis Diabetic coma Migraine with aura Diabetes mellitus Kidney failure Surgical History History of cataract removal with insertion of prosthetic lens H/O right heart catheterization Family History Sister Depression Anxiety Bipolar 1 disorder Mother Alcohol abuse Father Alcohol abuse Other Substance abuse Social History Housing: House Alcohol intake: never Patient Tobacco Use Status: Never used Tobacco e-Cigarette/Vaping Use: Never Used service: No Current occupational status: unemployed Sexual orientation: Straight/Heterosexual Gender identity: Female Cognitive needs: No Hearing needs: No Vision needs: Yes Female Reproductive History Menstrual Age of Menarche: 13 Physical Exam Vital Signs: Last Vital Signs Pulse 93 02/18/25 12:35 BP 108/64 02/18/25 12:35 Pulse Ox 97 02/18/25 12:35 Oxygen Delivery Method Room Air 02/18/25 12:35 BMI result Body Mass Index 42.3 Office Procedures Glucose Monitoring Details Details: See [facility] [id number] - Glucose monitoring, continuous-physician I&R Procedure code (CPT) selection complete Assessment & Plan Assessment & Plan (1) Type 1 diabetes: Code(s): E10.9 - Type 1 diabetes mellitus without complications Category: Medical Qualifiers: Diabetes mellitus complication status: with hyperglycemia Qualified Code(s): E10.65 - Type 1 diabetes mellitus with hyperglycemia Plan: 24-year-old female with type 1 diabetes mellitus on Omnipod 5 insulin pump with Dexcom G7. A1c 12/24/2024 at 9.8% which is down from 11.5% in August 2024 however still much above her target. Discussed risk of hyperglycemia with the risk of complications. Dexcom g7 data downloaded which still shows she is not entering any carbs. Educated about importance of bolusing. She is hyperglycemic throughout the day because of not entering carbs. We also discussed in detail today regarding complications of hyperglycemia including both microvascular and macrovascular complications. Plan: -educated about pre bolusing with meals -continue current pump settings Basal rate(s) (units/hour) : 12 AM to 12 AM from 1.8 units/hour Bolus setting Insulin Carbohydrate Ratio (s) 12 AM to 12 AM ? 1:4.5 Correction Factor / Sensitivity Factor 12 AM to 12 AM ?01:25 from 1:30 Active Insulin Time:? 2 hours Target(s): 12 AM? to 9 AM 120 mg/dL 9 AM to 12 AM 110 mg/dL Correction threshold: 12 AM? to 9 AM 120 mg/dL 9 AM to 12 AM 110 mg/dL -due for eye visit, told her to make appointment (2) Obesity: Code(s): E66.9 - Obesity, unspecified Category: Medical Qualifiers: Obesity type: due to excess calories Obesity classification: adult class 3 (BMI >= 40) Serious obesity comorbidity presence: with serious comorbidity Body mass index: BMI 40.0-44.9 Qualified Code(s): E66.813 - Obesity, class 3; Z68.41 - Body mass index [BMI] 40.0-44.9, adult Plan: Class 3 obesity, with current BMI 41.9 kg per m2 She has gained 20 lb over the past 1 year She walks 15 minutes twice a day. Currently seeing the vmware consultant. She would be an excellent candidate for a GLP 1 agonist. Or a combined GLP 1/GI P agonist. No history of pancreatitis, denies alcohol use, no history of gallstones, no family history of thyroid cancer. Discussed with her side effects of GI intolerance, risk of pancreatitis and medullary thyroid cancer in rodents Unfortunately Zepbound was denied by insurance January 2025 Plan I spent 30 minutes in reviewing the record, seeing the patient and documenting in the medical record. Orders: Orders 2 AMB Glucose Monitoring Today E10.65 - Type 1 diabetes mellitus with hyperglycemia Coding Level of Care Code Est Pt Level 4 (65371) Diagnoses Type 1 diabetes mellitus with hyperglycemia E10.65 Diabetes mellitus complication status: with hyperglycemia Class 3 severe obesity due to excess calories with serious comorbidity and body mass index (BMI) of 40.0 to 44.9 in adult E66.813; Z68.41 Obesity type: due to excess calories Obesity classification: adult class 3 (BMI >= 40) Serious obesity comorbidity presence: with serious comorbidity Body mass index: BMI 40.0-44.9 CPT Codes Details - CPT: 02924 - Glucose monitoring, continuous-physician I&R ([id number]) Time Spent (min) 30
[2025-02-18 12:47] LABS: Glucose, Whole Blood 188 mg/dL (60-115)
== END 2025-02-18 13:05 | disposition home or self-care (01) ==
LOC: HO.ENCR 12:26
PROVIDERS: PCP Nurse Practitioner Family; Visit Provider Student in an Organized Health Care Education/Training Program
DX: E10.65 Type 1 diabetes mellitus with hyperglycemia (principal); E66.813 Obesity, class 3; Z68.41 Body mass index [BMI] 40.0-44.9, adult
CPT/HCPCS: 95251; 99214

== ENCOUNTER → 2025-02-18 12:26 | Outpatient (BNVA) | payer OTHER, MEDICAID, SELFPAY | PROVIDERS: PCP Nurse Practitioner Family; Visit Provider Student in an Organized Health Care Education/Training Program | DX: Z46.81 Encounter for fitting and adjustment of insulin pump (principal); E10.65 Type 1 diabetes mellitus with hyperglycemia; E66.813 Obesity, class 3; Z68.41 Body mass index [BMI] 40.0-44.9, adult; Z79.4 Long term (current) use of insulin | CPT/HCPCS: 82947 ==

== ENCOUNTER 2025-04-29 09:32 | Outpatient (AMB) | payer OTHER, MEDICAID, SELFPAY ==
--- NOTE | 2025-04-29 09:35 | A.OFFVIS_ITS ---
Vital Signs 04/29/25 09:38 Height 5 ft 2 in Weight 233 lb 11.04 oz BMI 42.7 BP 108/72 Blood Pressure Location Lt brachial Position Sitting Pulse 101 H Pulse Source Pulse Oximeter Pulse Oximetry (%) 96 Oxygen Delivery Method Room Air Intake Visit Reasons: T1DM Intake Note: Patient present today for Type 2 Diabetes Mellitus Last Diabetic eye exam: Last exam was about 1 year ago. No appt scheduled for next exam. Last Podiatry Visit: Doesn't have one Random Glucose: 316 mg/dl HgA1C: 9.6% Molder Machine Required: No Accompanied by: Mother Allergies No Known Allergies Allergy (Verified 04/29/25 09:41) Medication List - Last Reconciled 04/29/25 by Chung Domingo MD acetone (urine) test (Ketone Urine Test strips) prn glucose over 250, nausea, vomiting, illness up to tid Baqsimi 3 mg/actuation (glucagon) 3 mg intranasal ONCE PRN 30 days MDD 6mg NS blood-glucose meter (Contour Next EZ Meter) As directed for use with strips blood-glucose sensor (Dexcom G7 Sensor device) As directed every 10 days clotrimazole-betamethasone 1-0.05 % 1 appl topical BID 7 days Contour Next Test Strips (blood sugar diagnostic) As directed up to 4 times daily prn sensor failure or to confirm glucose sensor reading NS Dexcom G6 Sensor (blood-glucose sensor) As directed every 10 days NS Dexcom G6 Transmitter (blood-glucose transmitter) As every 3 months for use with dexcom sensor NS Humalog U-100 Insulin (insulin lispro) up to 70 units daily via pump subcutaneously use as directed; 30 days MDD 70 units NS lancets (Microlet Lancet) up to 4 times daily to confirm sensor reading/use when sensor not avail Lantus Solostar U-100 Insulin (insulin glargine) 18 units (0.18 mL) subcut DAILY PRN 30 days MDD 18 units NS levonorgestrel (Mirena) intrauterine multivitamin 1 tab PO DAILY Omnipod 5 G6-G7 Pods (Gen 5) (insulin pump cart,auto,BT,G6/7) As directed every 3 days NS terconazole 0.4% 1 appful vaginal BEDTIME 7 days tirzepatide (weight loss) (Zepbound) 2.5 mg (0.5 mL) subcut QWEEK HPI Comments Details: 25-year-old female who is seen in f/u for type 1 diabetes mellitus. She last saw Dr. Rajan on 02/18/2025 Last seen 01/22/25 History of diabetes She was followed by pediatric endo at [facility] until 09/11 5and is on an Omnipod pump. At her initial visit in August 2024, her pump was on manual mode and she was not entering carbohydrate g. At the time of the visit she was instructed to go back to auto mode and to enter all of her carbohydrates pre meal in order to get an appropriate level of preprandial insulin. Initially diagnosed with T1dm at age [age] years old Was initially started on treatment with: started on insulin injections started on a pump approx 2023/ Omnipod G6 updated to Dexcom G7 December 2024 Omnipod 5 with Dexcom G7 data downloaded from February 05 to 02/18/2025 Time CGM active 83.8% Average glucose 223 mg/dL G IA not applicable Coefficient of variation 45.1 % Within target range 43% High 23% Very high 34% Low 0% Very low 0% Interpretation: Still having a lot of postprandial hyperglycemia not entering any carbs. Insulin usage Total insulin per day 63.9 units Basal per day 46.8 units Bolus per day 17 units Carbs per day55.2 g Entries per day 1.8 In automated mode 100% Pump settings Basal rate(s) (units/hour) : 12 AM to 12 AM 1.8 units / hr Bolus setting Insulin Carbohydrate Ratio (s) 12 AM to 12 AM ? 1:4.5 Correction Factor / Sensitivity Factor 12 AM to 12 AM ? 1:25 Active Insulin Time:? 2 hours Target(s): 12 AM? to 9 AM 120 mg/dL 9 AM to 12 AM 110 mg/dL Correction threshold: 12 AM? to 9 AM 120 mg/dL 9 AM to 12 AM 110 mg/dL Rare hypoglycemia Treats lows with juice box. caries juice or skittles with her Treats lows with juice box. caries juice or skittles with her Family history of T1dm .great maternal aunt with type 1 No retinopathy: eyes checked yearly, last eye exam , surgery 2 years ago cataract will schedule f/u Denies neuropathy: has foot drop Had kidney failure in 2019 related to sepsis was on HD for a short time, EGFR greater than 60, 01/13/2025, normal urine microalbumin to creatinine ratio 01/13/2025 Has HLD, not on statin , LDL 87 mg/dL 01/13/2025 Denies CAD. She was hospitalized in 2019 with septic shock diabetic coma, ATN. She was seen at vascular at [facility] after this time due to footdrop. DKA 5 years ago, 2 episodes of DKA diabetes education: has been to dm education Pre pump A1C's 12%, post pump 9% done fall 2023 [facility] Medical History (Updated 12/24/24 @ 15:17 by Audelia Rajan MD) Obesity Emphysematous cystitis Diabetic coma Migraine with aura Diabetes mellitus Kidney failure Surgical History History of cataract removal with insertion of prosthetic lens H/O right heart catheterization Family History Sister Depression Anxiety Bipolar 1 disorder Mother Alcohol abuse Father Alcohol abuse Other Substance abuse Social History Housing: House Alcohol intake: never Patient Tobacco Use Status: Never used Tobacco e-Cigarette/Vaping Use: Never Used service: No Current occupational status: unemployed Sexual orientation: Straight/Heterosexual Gender identity: Female Cognitive needs: No Hearing needs: No Vision needs: Yes Female Reproductive History Menstrual Age of Menarche: 13 Physical Exam Vital Signs: Last Vital Signs Pulse 101 H 04/29/25 09:38 BP 108/72 04/29/25 09:38 Pulse Ox 96 04/29/25 09:38 Oxygen Delivery Method Room Air 04/29/25 09:38 BMI result Body Mass Index 42.7 Absence of Cushingoid features. Absence of acromegalic features. Neck exam reveals nl size thyroid about 15 gms. No thyroid nodules palpable. No carotid bruits present. Lungs CTA. Heart S1 S2, Reg R/R. No M/R/ G. Skin exam reveals absence of vitiligo or acanthosis nigricans. Abdominal exam reveals Soft NT/ND with NA BS. No organomegaly present. Neck Other: . Extrem Other: Visual exam of foot performed. No ulcerations or open lesions. No onchomycosis, no callouses.Pulses 2 + distally Sensation intact to monofilament exam. Vibratory sensation sensed is decreased with 128 Hz tuning fork Results AMB Hemoglobin A1c AMB Hemoglobin A1c 9.6 % Last Edit by ABIEL Billingsley on 04/29/25 10:00 Results Reviewed Results Reviewed: Laboratory Last Values Glucose (Clinic) 316 mg/dL (60-115) H 04/29/25 09:43 Assessment & Plan Assessment & Plan (1) Type 1 diabetes: Code(s): E10.9 - Type 1 diabetes mellitus without complications Category: Medical Qualifiers: Diabetes mellitus complication status: with hyperglycemia Qualified Code(s): E10.65 - Type 1 diabetes mellitus with hyperglycemia Plan: This is a 25-year-old white female with a history of type 1 diabetes being treated with the insulin pump namely Omnipod 5 with poor glycemic control and knownmacrovascular complication namely PAD. Persistent problem has been patient's lack of entry of carbohydrates prior to meal causing post-prandial hyperglycemia. Plan is to send the patient for follow up with the perioperative educator and to talk to the patient about considering switching pumps to a iLet in which she would not have to enter carbohydrates but just announced meals. We will also talk to the patient about adjunctive use of G LP 1 although it has been denied by insurance in the past. She is unable to of the meal obtain the G LP 1 through [employer] pay for [employer] Orders: Orders AMB Hemoglobin A1c Today E10.65 - Type 1 diabetes mellitus with hyperglycemia, Z13.9 - Encounter for screening, unspecified Coding Level of Care Code Est Pt Level 4 (81721) Add On Problem Visit Only Diagnoses Type 1 diabetes mellitus with hyperglycemia E10.65 Diabetes mellitus complication status: with hyperglycemia
[2025-04-29 09:38] VITALS: BP 108/72; PULSE 101; O2SAT 96; BMI 42.7
[2025-04-29 09:47] LABS: Glucose, Whole Blood 316 mg/dL (60-115)
--- OUTSIDE RECORDS SUMMARY | 2025-04-29 10:57 | XMS_ITS | Clinical Summary ---
Author Organization [facility] Address [address] [place] [id number] Phone Care Team Providers Care Wader Boot Top Assembler Name Role Phone Unavailable Primary Care Provider Unavailabl e Allergies No known active allergies Medications Insulin Lispro 100 UNIT/ML solution cartridge HUMALOG; Active Acti ve insulin glargine 100 UNIT/ML injection LANTUS; Active Activ e Continuous Blood Gluc Telephone Service Representative (DEXCOM G6 NOVELTY CANDY MAKER) device U UTD TO MONITOR BLOOD GLUCOSE [...] 08/30/2019 Overview (10/29/2019): 10/27/19: Pedi Neurology at [facility] ( telemedicine)- unclear if neurologic deficits can be entirely explained by myasthenia gravis: increase of Mestinon made, taper GBP f/u in 3 mo at which time will recheck labs and consider rpt EMG Assessment & Plan (08/24/2020 8:17 AM EDT): Followed by neurology at [facility]- is off gabapentin. Happy with [...] this time- was getting weekly EKGs at [place] Attention-deficit hyperactiv ity disorder, predominantly inattentive type [...] Followed [place] [facility] [facility]- [place] insulin Assessment & Plan (08/30/2019 7:54 AM EDT): DKA on 06/08/19- admitted to [facility] currently in good control- followed by [...] 08/24/2020 Overview (09/24/2019): 09/23/19: [facility] ([facility])- needs rpt sleep study- mom requesting to do at [facility], PFTs ( when clear to come back for inpatient visit) and given Rx for albuterol prn Influenza B 08/30/2019 08/24/2020 Overview (08/30/2019): Admission on June 08, 2019 to [facility] Assessment & Plan (08/30/2019 7:51 AM EDT): Complex prolonged hospitalization from June 08, 2019 through 08/07/19 with rehabilitation at [place] from 08/07/19 until 08/19/19 Anemia 02/14/2017 08/24/2020 [...] Health Maintenance Due Date Last Done Comments DTaP,Tdap,and Td Vaccines (7 - Td or Tdap) 06/25/2022 06/25/2012, 10/03/2006, 07/17/2002, Additional history exists Influenza Vaccines (#1) 2024 02/15/20, 04/21/2021, 03/07/2020, Additional history exists COVID-19 Vaccine ( season) 2025 04/21/2021, 10/22/2020, 09/24/2020 Hepatitis B [...] Completed 05/11/2020, 01/13/2003, 2001, Additional history exists Men B Vaccine Aged Out No longer elig ible based on patient's age to complete this topic Procedures * Due to [place] CallsFreeCalls law, this organization might not be sharing sensitive test results. Procedure Name Priority Date/Time Associated Diagnosis Comments CHLAMYDIA AND GONORRHEA, AMPLIFIED Routine 08/23/2020 2:27 PM EDT Encounter for screening examination for sexually transmitted disease from Last 3 Months or Most Recently Relevant to Health Maintenance Results * Due to [place] CallsFreeCalls law, this organization might not be sharing sensitive test results. * Chlamydia and Gonorrhoea, Amplified (08/23/2020 2:27 PM EDT) Chlamydia Trachomatis, DNA Probe NEGATIVE (NEG) [facility] Comment: No Chlamydia Trachomatis RNA detected in this patient's sample (REFERENCE RANGE/NORMAL VALUE: NOT DETECTED) Note: This test uses door slinger- mediated amplification method to detect rRNA from C. Trachomatis URINE GC AMP PROBE NEGATIVE (NEG) [facility] Comment: No Neisseria Gonorrhoeae RNA detected in this patient's sample (REFERENCE RANGE/NORMAL VALUE: NOT DETECTED) NOTE: This test uses door slinger-mediated amplification method to detect rRNA from N.Gonorrhoeae. [...] without risk of sexual abuse. Consult the [facility] if needed. Contact phone number . Therapeutic failure or success cannot be determined with the Aptima Combo2 assay since nucleic acid may persist following appropriate antimicrobial therapy. The Centers for Disease Control and Prevention (CDC) recommends confirmatory retesting using culture or a different nucleic acid amplification test when positive results occur, if indicated. Testing performed or reported by [facility], a Service of [facility], [facility] [place] [address] Thang De Los Santos MD, Diamond Sander Urine (Urine) 08/23/2020 2:2 7 PM EDT 08/23/2020 9:36 PM EDT us Roebrta Barnhart MD LAB MICROBIOLOGY - GENERAL ORDER ALPHONSO Final Result [facility] from Last 3 Months or Most Recently Relevant to Health Maintenance Insurance BLUE BENEFIT [facility]
--- OUTSIDE RECORDS SUMMARY | 2025-04-29 10:57 | XMS_ITS | Encounter Summary ---
Author Organization [facility] Address [address] [place] [address] Phone Care Team Providers Care Rooming House Inspector Name Role Phone Lyly Barroso MD Primary Care Provider [phone] Reason for Visit * Reason Comments Med Refill Encounter Details Date Type Department Care Team (Late st Contact Info) Description 10/04/2022 [facility]ill [facility] [address] [address] Roberta Barnhart MD Depression, unspecified depression type [...] type documented in this encounter Care Teams Rooming House Inspector Relationship Specialty Start Date End Date Lyly Barroso MD [address] [facility] [place] [id number] PCP - General Pediatrics 06/25/22 03/31/24 documented as of this encounter
--- OUTSIDE RECORDS SUMMARY | 2025-04-29 10:58 | XMS_ITS | Encounter Summary ---
Author Organization [facility] Address [address] [place] [address] Phone Care Team Providers Care Crew Clerk Name Role Phone Lyly Barroso MD Primary Care Provider [phone] Encounter Details Date Type Department Care Team (Late st Contact Info) Description 09/29/2017 Conversion Encounter [facility] [address] [place] [address] Yamileth Ray MD [address] [place] [address] Social History Tobacco Use Types Packs/Day Years [...] on filedocumented in this encounter Care Teams Crew Clerk Relationship Specialty Start Date End Date Lyly Barroso MD [address] [place] [address] PCP - General Pediatrics 06/25/22 03/31/24 documented as of this encounter
--- OUTSIDE RECORDS SUMMARY | 2025-04-29 10:58 | XMS_ITS | Clinical Summary ---
Author Organization [facility] Address [address] [place] [address] Care Team Providers Care Machine Plug Shaper Name Role Phone Pcp, No Primary Care Provider Unavailabl e Allergies No known active allergies Medications Continuous Blood Gluc Sensor (Dexcom G6 Sensor) [facility] [place] USE TO MONITOR BLOOD SUGARS 03/28/20 Active Insulin Disposable Pump (Omnipod 5 G6 Pod, Gen 5,) [facility] 03/28[facility]20 Active HumaLOG 100 UNIT/ML injection USE SUBCUTANEOUSLY VIA INSULIN PUMP. MAX DAILY DOSE 100 UNITS. 03/26/20 Active Insulin Disposable Pump (Omnipod 5 G6 Intro, Gen 5,) Kit 01/09/20 Active fluocinonide (LIDEX) 0.05 % external solution APPLY TWICE DAILY TO THE SCALP FOR 2 WEEKS ON, THEN TAKE 1 WEEK OFF. REPEAT NEEDED. 02/21/20 Active Continuous Blood Gluc Transmit (Dexcom G6 Transmitter) [facility] [place] 03/29/20 Active insulin glargine (LANtus/SEMGLEE) 100 units/mL [...] Pap Smear (Ages 21-65) 2022 Influenza Vaccine 12/11/2024 COVID-19 Vaccine (1 - 2024-2 6 season) 2025 Hemoglobin A1C Discontinued 03/30/2023 Pneumococcal Vaccine: Pediat [...] 11.1(H) <5.7 % 03/30/2023 9:42 AM EST [facility] Comment: A1c% Interpretation 5.7 - 6.0 Increase risk of diabetes 6.1 - 6.4 Higher risk of diabetes > or = 6.5 Consistent with diabetes Diabetes Care, 33(Supp 1):S1-S61, 2010 Estimated Average Glucose 272 mg/dL 03/30/2023 9:42 AM [facility] Blood specimen (specimen) Blood specimen / Unknown 03/30/2023 4:02 AM EST 03/30/2023 4:07 AM EST Chung French PA-C LAB BLOOD ORDERABLES Fi nal Result [address] [address], [address] [address] from Last 3 Months or Most Recently Relevant to Health Maintenance Insurance [employer] OUT OF STATE - [place]PO [place]ICAID [place] [facility] [place] * Full Code (Latest Code Status on File) Date Activated Date Inactivated Comments 03/29/2023 4:28 AM Care Teams Machine Plug Shaper Relationship Specialty Start Date End Date Pcp, No [address] [place] [address] PCP - General 03/29/23
--- OUTSIDE RECORDS SUMMARY | 2025-04-29 10:59 | XMS_ITS | Encounter Summary ---
Author Organization [facility] Address [address] [place] [address] Phone Care Team Providers Care Sheet Metal Contractor Name Role Phone Lyly Barroso MD Primary Care Provider [phone] Reason for Visit * Reason Comments Med Refill Encounter Details Date Type Department Care Team (Late st Contact Info) Description 05/10/2021 [facility]ill [facility] [address] [address] Roberta Barnhart MD Oral contraception initiation Social [...] initiation documented in this encounter Care Teams Sheet Metal Contractor Relationship Specialty Start Date End Date Lyly Barroso MD [address] [facility] [place] [address] PCP - General Pediatrics 06/25/22 03/31/24 documented as of this encounter
--- OUTSIDE RECORDS SUMMARY | 2025-04-29 10:59 | XMS_ITS | Clinical Summary ---
Author Organization [facility] Address [address] [place] [address] Phone Care Team Providers Care Wholesale Account Manager Name Role Phone Tere Plascencia Primary Care [...] of Treatment Not on file Care Teams Wholesale Account Manager Relationship Specialty Start Date End Date Tere Plascencia PCP - General 06/21/19 Tere Plascencia PCP - Clinical PCP 06/21/19
--- OUTSIDE RECORDS SUMMARY | 2025-04-29 10:59 | XMS_ITS | Clinical Summary ---
Author Organization [facility], Address [address] [place] [address] [place] [address] Phone Care Team Providers Care Calliope Player Name Role Phone Unavailable Primary Care Provider [...]
--- OUTSIDE RECORDS SUMMARY | 2025-04-29 10:59 | XMS_ITS | Encounter Summary ---
Author Organization [facility] Address [address] [place] [address] Phone Care Team Providers Care Payer Specialist Name Role Phone Lyly Barroso MD Primary Care Provider [phone] Reason for Visit * Reason Comments Med Refill Encounter Details Date Type Department Care Team (Late st Contact Info) Description 08/31/2020 Refill [facility] [address], [place] [id number] Torrie Sheikh NP [address] [place] [address] Oral contraception initiation Social History Tobacco Use [...] AM EDT Refill request for [place]ia Last [facility] was 08/23/20 Please review documented in this encounter Plan of Treatment Not on file documented as of this encounter Visit Diagnoses Diagnosis Oral contraception initiation documented in this encounter Care Teams Payer Specialist Relationship Specialty Start Date End Date Lyly Barroso MD [address] [facility] [place] [address] PCP - General Pediatrics 06/25/22 03/31/24 documented as of this encounter
== END 2025-04-29 10:32 | disposition home or self-care (01) ==
LOC: HO.ENCR 09:32
PROVIDERS: PCP Nurse Practitioner Family; Visit Provider Internal Medicine Endocrinology, Diabetes & Metabolism
DX: Z13.9 Encounter for screening, unspecified (principal); E10.65 Type 1 diabetes mellitus with hyperglycemia
CPT/HCPCS: 99214

== ENCOUNTER → 2025-04-29 09:32 | Outpatient (BNVA) | payer OTHER, MEDICAID, SELFPAY | PROVIDERS: PCP Nurse Practitioner Family; Visit Provider Internal Medicine Endocrinology, Diabetes & Metabolism | DX: E10.65 Type 1 diabetes mellitus with hyperglycemia (principal) | CPT/HCPCS: 82947; 83036 ==